=== PATIENT | female | born 1970 | race African-American/Black ===

== ENCOUNTER 2016-12-27 02:42 | Inpatient (IN) | payer MEDICARE, MEDICAID ==
[2016-12-27] VITALS (7 sets, daily range): BP systolic 98–135; BP diastolic 66–88; PULSE 61–86; RESP 16–19; TEMP 97.1–97.9; O2SAT 98–100
[~2016-12-27] VITALS: Ht 160 cm; Wt 71.5 kg
[~2016-12-27 02:42] MED LIST: CLAR10CA3 PO; DILA8TAB4 PO; GABA600T PO; MARI5CAP PO; METH10TA PO; MIRA33504 PO; NAPR500T PO; PROC25SU22 RECTAL; SENO8.6T5 PO; XANA1TAB2 PO; [UNRECOGNIZED DRUG - CODE] PO
[2016-12-27] MEDS ORDERED: MORPHINE SULFATE 4 MG/ML INJ IV PUSH ONE (03:30)
[2016-12-27] MEDS ORDERED: SODIUM CHLOR 0.9% 1000 ML INJ 1,000 ML IV SCH (03:30)
[2016-12-27] MEDS ORDERED: SODIUM CHLORIDE 0.9% FLUSH 5 ML FLUSH IVF PRN (03:30)
[2016-12-27] MEDS ORDERED: ONDANSETRON HCL 4 MG/2 ML VIAL IVP ONE (03:30)
[2016-12-27] MEDS ORDERED: METO10TA PO (03:47)
[2016-12-27] MEDS ORDERED: XARE15TA PO (03:47)
[2016-12-27] MEDS ORDERED: DEXA4TAB PO (03:47)
--- NOTE | 2016-12-27 03:51 | PD ---
HPI Chief Complaint: GI Complaint Time Seen by Provider: 03:21 Travel History International Travel<30 days: No Contact w/Intl Traveler<30days: No Traveled to known affect area: No History of Present Illness HPI The patient is a 46-year-old female who presents to the emergency department for nausea, vomiting, and abdominal pain. 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 The patient is currently treated by her oncologist at [facility] and [place], [place]. The patient states her oncologist is Joshua Hidalgo. The patient states she last received carboplatin and Taxotere on Thursday. The patient then had some nausea and vomiting. The patient is unable to tolerate oral intake including liquids and solids. The patient also complains of generalized abdominal pain, states she recently had a CT of the abdomen and pelvis which revealed an enlarging pelvic mass. The patient states she has no current family members in the area to help her with transportation and to help her with activities of daily living. The patient is called a family member who lives in [place] to see if she can live with them for care, however, currently is unable to transport herself to [facility] for further evaluation. The patient called her oncologist who recommended she come to the emergency department. The patient denies any fever , chills, or sweats. She does note decrease in energy secondary to poor oral intake. The patient also states she was recently diagnosed with a pulmonary embolism and was placed on Xarelto. PFSH Past Medical History Hx Anticoagulant Therapy: Yes (XARELTO) Cancer: Yes (DX FALLOPIAN TUBE CA) Cardiovascular Problems: No Chemotherapy: Yes (10/21/16) Diabetes: No Diminished Hearing: No Endocrine: No Genitourinary: No Hepatitis: No Hiatal Hernia: No Hypertension: No Immune Disorder: No Implanted Vascular Access Dvce: Yes (power port right subclavian) Musculoskeletal: No Neurologic: Yes Psychiatric: No Reproductive: No Respiratory: Yes (BLOOD CLOT RIGHT LUNG) Migraines: No Sickle Cell Disease: No Thyroid Disease: No PNEUMOCCOCAL Vaccine (Year): 2 : 0 Past Surgical History Abdominal Surgery: Yes (CANCER REMOVED FROM AROUND AORTA & BOWELS) Body Medical Devices: Infussa-port Genitourinary Surgery: Yes (BENIGN & malignant TUMORS REMOVED) Gynecologic Surgery: Yes (MYOMECTOMY) Hysterectomy: Yes Other Surgery: Yes Social History Alcohol Use: No Tobacco Use: No (former) Substance Use: No Allergies-Medications (Allergen,Severity, Reaction): Coded Allergies: Adhesives (Verified Allergy, Intermediate, SKIN REACTION, 12/27/16) Doxil (Verified Allergy, Intermediate, Rash, 12/27/16) Reported Meds & Prescriptions Reported Meds & Active Scripts Active Reported Xarelto (Rivaroxaban) 15 Mg Tab 15 Mg PO BID Metoclopramide (Metoclopramide HCl) 10 Mg Tab 10 Mg PO Q6HR Dexamethasone 4 Mg Tab 4 Mg PO DAILY Prochlorperazine Supp (Prochlorperazine) 25 Mg Supp 25 Mg RECTAL Q12H Miralax Powder (Polyethylene Glycol 3350 Powder) 17 Gm Powd 17 Gm PO BID Mix and dissolve one measuring cap-ful (17 grams) in water or juice. Methadone (Methadone HCl) 10 Mg Tab 20 Mg PO Q8HR Claritin (Loratadine) 10 Mg Cap 10 Mg PO DAILY Dilaudid (Hydromorphone HCl) 8 Mg Tab 8 Mg PO 5 TIMES A DAY Gabapentin 600 Mg Tab 600 Mg PO BID Marinol (Dronabinol) 5 Mg Cap 5 Mg PO BID Senokot (Sennosides) 8.6 Mg Tab 8.6 Mg PO 6 TIMES DAILY Xanax (Alprazolam) 1 Mg Tab 1 Mg PO 5 TIMES A DAY Review of Systems Except as stated in HPI: all other systems reviewed are Neg General / Constitutional: No: Fever, Chills Cardiovascular: No: Chest Pain or Discomfort Respiratory: No: Shortness of Breath Gastrointestinal: Positive: Nausea, Vomiting, Abdominal Pain, No: Diarrhea Genitourinary: No: Dysuria Musculoskeletal: Positive: Weakness Neurologic: Positive: Weakness Physical Exam Narrative GENERAL: Awake, alert, 46 year-old female who appears her stated age and is in no acute respiratory distress. SKIN: Warm and dry. HEAD: Atraumatic. Normocephalic. EYES: No injection or drainage. ENT: No nasal bleeding or discharge. Dry mucous membranes. NECK: Trachea midline. No JVD. CARDIOVASCULAR: Regular rate and rhythm. No murmur appreciated. Heart rate in the 80s. Port in place right chest wall. RESPIRATORY: No accessory muscle use. Clear to auscultation. Breath sounds equal bilaterally. GASTROINTESTINAL: Abdomen soft, well-healed midline surgical scar, no rebound tenderness. MUSCULOSKELETAL: No obvious deformities. No clubbing. No cyanosis. No edema. NEUROLOGICAL: Awake and alert. No obvious cranial nerve deficits. Motor grossly within normal limits. Normal speech. PSYCHIATRIC: Appropriate mood and affect; insight and judgment normal. Data Data Last Documented VS Vital Signs Date Time Temp Pulse Resp B/P Pulse Ox O2 Delivery O2 Flow Rate FiO2 12/27/16 03:10 61 18 128/81 99 Room Air 12/27/16 02:45 97.7 Orders Complete Blood Count With Diff (12/27/16 03:30) Comprehensive Metabolic Panel (12/27/16 03:30) Lipase (12/27/16 03:30) Lactic Acid (12/27/16 03:30) Urinalysis - C+S If Indicated (12/27/16 03:30) Abdomen, Flat & Upright (12/27/16 ) Iv Access Insert/Monitor (12/27/16 03:30) Ecg Monitoring (12/27/16 03:30) Oximetry (12/27/16 03:30) Morphine Inj (Morphine Inj) (12/27/16 03:30) Ondansetron Inj (Zofran Inj) (12/27/16 03:30) Sodium Chlor 0.9% 1000 Ml Inj (Ns 1000 M (12/27/16 03:30) Sodium Chloride 0.9% Flush (Ns Flush) (12/27/16 03:30) Sodium Chlor 0.9% 1000 Ml Inj (Ns 1000 M (12/27/16 04:45) Prochlorperazine Inj (Compazine Inj) (12/27/16 05:00) Admit Order (Ed Use Only) (12/27/16 05:09) Labs Laboratory Tests Test 12/27/16 03:40 White Blood Count 28.8 TH/MM3 Red Blood Count 4.98 MIL/MM3 Hemoglobin 13.2 GM/DL Hematocrit 40.5 % Mean Corpuscular Volume 81.3 FL Mean Corpuscular Hemoglobin 26.5 PG Mean Corpuscular Hemoglobin 32.6 % Concent Red Cell Distribution Width 19.7 % Platelet Count 304 TH/MM3 Mean Platelet Volume 9.1 FL Neutrophils (%) (Auto) % Lymphocytes (%) (Auto) % Monocytes (%) (Auto) % Eosinophils (%) (Auto) % Basophils (%) (Auto) % Neutrophils # (Auto) TH/MM3 Lymphocytes # (Auto) TH/MM3 Monocytes # (Auto) TH/MM3 Eosinophils # (Auto) TH/MM3 Basophils # (Auto) TH/MM3 CBC Comment AUTO DIFF Differential Total Cells 100 Counted Neutrophils % (Manual) 97 % Neutrophils # (Manual) 28.8 TH/MM3 Metamyelocytes 3 % Differential Comment FINAL DIFF MANUAL Platelet Estimate NORMAL Platelet Morphology Comment NORMAL Ovalocytes 1+ Sodium Level 139 MEQ/L Potassium Level 3.7 MEQ/L Chloride Level 102 MEQ/L Carbon Dioxide Level 27.3 MEQ/L Anion Gap 10 MEQ/L Blood Urea Nitrogen 20 MG/DL Creatinine 0.67 MG/DL Estimat Glomerular Filtration 115 ML/MIN Rate Random Glucose 122 MG/DL Lactic Acid Level 1.9 mmol/L Calcium Level 9.1 MG/DL Total Bilirubin 0.6 MG/DL Aspartate Amino Transf 16 U/L (AST/SGOT) Alanine Aminotransferase 23 U/L (ALT/SGPT) Alkaline Phosphatase 116 U/L Total Protein 7.2 GM/DL Albumin 3.6 GM/DL Lipase 66 U/L MDM Medical Decision Making Medical Screen Exam Complete: Yes Emergency Medical Condition: Yes Medical Record Reviewed: Yes Interpretation(s) Last Impressions Abdomen X-Ray 12/27/16 0000 Signed Impressions: Service Date/Time: Tuesday, December 27, 2016 03:55 - CONCLUSION: No acute disease. Derek Miranda MD Laboratory Tests Test 12/27/16 03:40 White Blood Count 28.8 TH/MM3 Red Blood Count 4.98 MIL/MM3 Hemoglobin 13.2 GM/DL Hematocrit 40.5 % Mean Corpuscular Volume 81.3 FL Mean Corpuscular Hemoglobin 26.5 PG Mean Corpuscular Hemoglobin 32.6 % Concent Red Cell Distribution Width 19.7 % Platelet Count 304 TH/MM3 Mean Platelet Volume 9.1 FL Neutrophils (%) (Auto) % Lymphocytes (%) (Auto) % Monocytes (%) (Auto) % Eosinophils (%) (Auto) % Basophils (%) (Auto) % Neutrophils # (Auto) TH/MM3 Lymphocytes # (Auto) TH/MM3 Monocytes # (Auto) TH/MM3 Eosinophils # (Auto) TH/MM3 Basophils # (Auto) TH/MM3 CBC Comment AUTO DIFF Sodium Level 139 MEQ/L Potassium Level 3.7 MEQ/L Chloride Level 102 MEQ/L Carbon Dioxide Level 27.3 MEQ/L Anion Gap 10 MEQ/L Blood Urea Nitrogen 20 MG/DL Creatinine 0.67 MG/DL Estimat Glomerular Filtration 115 ML/MIN Rate Random Glucose 122 MG/DL Lactic Acid Level 1.9 mmol/L Calcium Level 9.1 MG/DL Total Bilirubin 0.6 MG/DL Aspartate Amino Transf 16 U/L (AST/SGOT) Alanine Aminotransferase 23 U/L (ALT/SGPT) Alkaline Phosphatase 116 U/L Total Protein 7.2 GM/DL Albumin 3.6 GM/DL Lipase 66 U/L Differential Diagnosis Differential diagnosis includes cancer, chemotherapy side effect, dehydration, electrolyte abnormality, pancreatitis, ileus, partial small bowel obstruction, failure to thrive, end-of-life care. Narrative Course The patient's port was accessed, labs were drawn and sent, and the patient was placed on cardiac telemetry monitoring and continuous pulse oximetry monitoring. The patient was administered IV fluids, Zofran, and morphine. Flat and upright x-ray were obtained evaluate for possible ileus/obstruction. The patient states she recently had a CT the abdomen and pelvis, therefore, no CT the abdomen and pelvis was performed today secondary to recent radiation. The patient is requesting to be transferred to [facility] for further evaluation by her oncologist. The patient states her oncologist is Dr. Joshua Hidalgo, and she states the number to the main line is [phone]. I discussed the patient with the [employer] oncology fellow, Dr. Puga, who spoke with the patient directly on the phone regarding transfer versus staying in [facility] and receiving IV fluids and antiemetics. After Dr. Puga had a discussion with the patient, she agreed to receive treatment at [facility] be transferred later if symptoms worsen or progress. The patient continued to have nausea/vomiting, therefore, was administered Compazine and a second dose of IV fluids. The patient states her primary physician is Dr. Breonna Chang, therefore, the on-call medical service was paged for admission. The patient will be admitted to the oncology floor. Physician Communication Physician Communication [facility] hospitalists were paged for admission. I discussed the patient with Dr. Ta who agrees with admission. Diagnosis Primary Impression: Intractable nausea and vomiting Qualified Code: R11.2 - Intractable vomiting with nausea, unspecified vomiting type Additional Impression: Gynecologic cancer Admitting Information Admitting Physician Requests: Admit Condition: Stable Tanmay Armijo MD Dec 27, 2016 03:51
[2016-12-27 03:56] LABS: HEMATOCRIT 40.5 % (35.0-46.0); MEAN CELL VOLUME 81.3 FL (80.0-100.0); MEAN CORPUSCULAR HEMOGLOBIN 26.5 PG (27.0-34.0); MEAN CORPUSCULAR HGB CONC 32.6 % (32.0-36.0); PLATELET COUNT 304 TH/MM3 (150-450); RED BLOOD COUNT 4.98 MIL/MM3 (4.00-5.30); RED CELL DISTRIBUTION WIDTH 19.7 % (11.6-17.2); WHITE BLOOD COUNT 28.8 TH/MM3 (4.0-11.0)
--- NOTE | 2016-12-27 04:14 | RADRPT ---
EXAM DATE/TIME: 12/27/2016 03:55 [place] COMPARISON: No previous studies available for comparison. INDICATIONS : Abdominal pain. Nausea. MEDICAL HISTORY : Carcinoma, colon. SURGICAL HISTORY : None. ENCOUNTER: Initial ACUITY: 3 days PAIN SCORE: 6/10 LOCATION: Bilateral lower quadrant FINDINGS: No evidence for bowel obstruction. No free air beneath the diaphragm. Surgical clips are noted throug hout the abdomen. Osseous structures are intact. CONCLUSION: No acute disease. Derek Miranda MD on December 27, 2016 at 4:12 Board Certified Radiologist. This report was verified electronically.
[2016-12-27 04:16] LABS: ANION GAP 10 MEQ/L (5-15); AST (GOT) 16 U/L (15-37); BICARBONATE 27.3 MEQ/L (21.0-32.0); BLOOD UREA NITROGEN 20 MG/DL (7-18); CHLORIDE 102 MEQ/L (98-107); GLOMERULAR FILTRATION RATE 115 ML/MIN (>89); POTASSIUM 3.7 MEQ/L (3.5-5.1); SODIUM (NA) 139 MEQ/L (136-145)
[2016-12-27 04:20] LABS: ALKALINE PHOSPHATASE 116 U/L (45-117); ALT (GPT) 23 U/L (10-53); TOTAL BILIRUBIN ADULT 0.6 MG/DL (0.2-1.0)
[2016-12-27 04:22] LABS: HEMO FLAGS AUTO DIFF
[2016-12-27] MEDS ORDERED: SODIUM CHLOR 0.9% 1000 ML INJ 1,000 ML IV ONE (04:45)
[2016-12-27] MEDS ORDERED: PROCHLORPERAZINE INJ 10 MG/2 ML VIAL IVS ONE (05:00)
[2016-12-27 05:03] LABS: METAMYELOCYTES 3 % (0-1); NEUTROPHIL # MANUAL DIFF 28.8 TH/MM3 (1.8-7.7); POLYS (SEG NEUTROPHILS) 97 % (16-70); WBC DIFF SAMPLE 100
[2016-12-27 05:04] LABS: OVALOCYTES 1+ (NORMAL); PLATELET ESTIMATE SMEAR NORMAL (NORMAL); PLATELET MORPHOLOGY NORMAL (NORMAL); SCAN/DIFF FINAL DIFF MANUAL
[2016-12-27] MEDS ORDERED: PROMETHAZINE INJ 25 MG/ML VIAL IM PRN (05:15)
[2016-12-27] MEDS ORDERED: HYDROmorphone HCL PF 1 MG/ML VIAL IV PUSH ONE (05:15)
[2016-12-27] MEDS ORDERED: SODIUM CHLORIDE 0.9% FLUSH 5 ML FLUSH FLUSH PRN (05:15)
[2016-12-27] MEDS ORDERED: BISACODYL 10 MG SUPP PR PRN (05:15)
[2016-12-27] MEDS ORDERED: ACETAMINOPHEN 325 MG TAB PO PRN (05:15)
[2016-12-27] MEDS ORDERED: PANTOPRAZOLE SODIUM 40 MG VIAL IV PUSH ONE (05:30)
--- NOTE | 2016-12-27 05:38 | HHI.HP ---
[facility] Service [facility] Hospitalists Primary Care Physician Breonna Chang M.D. Admission Diagnosis intractable nausea/vomiting, gynecologic cancer, status post chemoth Diagnoses: (1) Intractable nausea and vomiting Diagnosis: Principal (2) Fallopian tube carcinoma Diagnosis: Principal (3) Leukocytosis Diagnosis: Principal (4) Chronic pain Diagnosis: Principal Travel History International Travel<30 Days: No Contact w/Intl Traveler <30 Da: No Traveled to Known Affected Are: No History of Present Illness This is a 46-year-old female with a PMH of Stage For Fallopian Tube CA on Chemo , h/o PE on Xarelto and Chronic Pain who presented to the ER w/ complaints of nausea, vomiting x3 days. States had Chemo on Thursday and has been having ongoing nausea/vomiting since then, unable to take PO. Follows w/ Oncologist Dr. Joshua Hidalgo at [place], recent CT Abd/Pelvis w/ enlarging pelvic mass per patient. Denies fever, chills or diarrhea. On arrival, BP 135/88, HR 86, O2 sat 98% on RA, Afebrile. WBC 28. Chemistry unremarkable except for BUN of 20. Lactic Acid 1.9. Abdominal X-ray with no acute disease. S/p Zofran, Compazine and Morphine IV in ER w/ some improvement. Oncologist at [place] contacted by ER physician, agreed that pt could remain here at [place] without need for transfer to [place] at this point in time. Review of Systems ROS: 14 point review of systems otherwise negative. Past Family Social History Past Medical History PMH: Stage For Fallopian Tube CA on Chemo, h/o PE on Xarelto and Chronic Pain Past Surgical History PAST SURGICAL HISTORY: Abdominal Debulking, Myomectomy, Hysterectomy, Infuse-a- Port Allergies: Coded Allergies: Adhesives (Verified Allergy, Intermediate, SKIN REACTION, 12/27/16) Doxil (Verified Allergy, Intermediate, Rash, 12/27/16) Family History PAST FAMILY HISTORY: Reviewed. No h/o DM or CAD Social History PAST SOCIAL HISTORY: Negative for alcohol, tobacco or drugs. Physical Exam Vital Signs Vital Signs Date Time Temp Pulse Resp B/P Pulse Ox O2 Delivery O2 Flow Rate FiO2 12/27/16 03:10 61 18 128/81 99 Room Air 12/27/16 02:45 97.7 86 18 135/88 98 Physical Exam PE: GENERAL: Middle-aged female in no acute distress. HEENT: PERRLA, EOMI. No scleral icterus or conjunctival pallor. No lid lag or facial droop. CARDIOVASCULAR: Regular rate and rhythm. No obvious murmurs to auscultation. No chest tenderness to palpation. Right chest port in place. RESPIRATORY: No obvious rhonchi or wheezing. Clear to auscultation. Breath sounds equal bilaterally. GASTROINTESTINAL: Abdomen soft, non-tender, nondistended. BS normal. MUSCULOSKELETAL: Extremities without clubbing, cyanosis, or edema. No obvious deformities. NEUROLOGICAL: Awake, alert and oriented x4. No focal neurologic deficits. Moving both upper and lower extremities spontaneously. Laboratory Laboratory Tests Test 12/27/16 03:40 White Blood Count 28.8 Red Blood Count 4.98 Hemoglobin 13.2 Hematocrit 40.5 Mean Corpuscular Volume 81.3 Mean Corpuscular Hemoglobin 26.5 Mean Corpuscular Hemoglobin 32.6 Concent Red Cell Distribution Width 19.7 Platelet Count 304 Mean Platelet Volume 9.1 Neutrophils (%) (Auto) Lymphocytes (%) (Auto) Monocytes (%) (Auto) Eosinophils (%) (Auto) Basophils (%) (Auto) Neutrophils # (Auto) Lymphocytes # (Auto) Monocytes # (Auto) Eosinophils # (Auto) Basophils # (Auto) CBC Comment AUTO DIFF Differential Total Cells 100 Counted Neutrophils % (Manual) 97 Neutrophils # (Manual) 28.8 Metamyelocytes 3 Differential Comment FINAL DIFF MANUAL Platelet Estimate NORMAL Platelet Morphology Comment NORMAL Ovalocytes 1+ Sodium Level 139 Potassium Level 3.7 Chloride Level 102 Carbon Dioxide Level 27.3 Anion Gap 10 Blood Urea Nitrogen 20 Creatinine 0.67 Estimat Glomerular Filtration 115 Rate Random Glucose 122 Lactic Acid Level 1.9 Calcium Level 9.1 Total Bilirubin 0.6 Aspartate Amino Transf 16 (AST/SGOT) Alanine Aminotransferase 23 (ALT/SGPT) Alkaline Phosphatase 116 Total Protein 7.2 Albumin 3.6 Lipase 66 Result Diagram: 12/27/16 0340 12/27/16 0340 Assessment and Plan Problem List: (1) Intractable nausea and vomiting ICD Code: R11.2 Status: Acute (2) Fallopian tube carcinoma ICD Code: C57.00 Status: Acute (3) Leukocytosis ICD Code: D72.829 Status: Acute (4) Chronic pain ICD Code: G89.29 Status: Acute Assessment and Plan A/P: 1. Intractable Nausea/Vomiting: s/p Chemo on Thursday, symptoms ongoing since then, no abdominal pain or diarrhea. Abdominal X-ray w/ no acute findings, images reviewed by me. S/p Zofran, Compazine w/ some improvement, continue IV Zofran/Compazine/Phenergan, Ativan IV if needed. IVF for hydration. Diet as tolerated. Protonix IV. Labs essentially unremarkable. Lipase normal. Lactic Acid normal. 2. Fallopian Tube CA: Stage IV. Follows w/ Dr. Joshua Hidalgo at [place], Oncologist contacted by ER physician and discussed pt's condition, agreed that pt could be admitted here for Observation/IVF, no need for transfer to [place] at this time. Pt to follow up upon discharge as scheduled. 3. Chronic Pain: secondary to Fallopian Tube CA. Resume home Dilaudid PO and Methadone, Dilaudid IV as needed. Senna, Miralax prn. 4. DVT Prophylaxis: On Xarelto for h/o PE. 5. Social work for d/c planning as needed. 6. Case discussed w/ ER physician at length. Problem Qualifiers (1) Intractable nausea and vomiting: Qualified Code: R11.2 - Intractable vomiting with nausea, unspecified vomiting type Cassandra Ta MD Dec 27, 2016 05:38
[2016-12-27] MEDS: SODIUM CHLOR 0.9% 1000 ML INJ 1,000 ML IV SCH ×3 (05:49→23:40)
[2016-12-27] MEDS: ALPRAZolam 1 MG TAB PO SCH ×5 (05:59→22:00)
[2016-12-27] MEDS: HYDROmorphone HCL 4 MG TAB PO SCH ×5 (06:00→21:52)
[2016-12-27] MEDS: METHADONE HCL 10 MG TAB PO SCH ×3 (06:00→21:51)
[2016-12-27] MEDS: SODIUM CHLORIDE 0.9% FLUSH 5 ML FLUSH FLUSH SCH ×2 (08:47→21:43)
[2016-12-27] MEDS: POLYETHYLENE GLYCOL 17 GM PKG PO SCH ×2 (08:48→21:50)
[2016-12-27] MEDS: ONDANSETRON HCL 4 MG/2 ML VIAL IVP PRN ×2 (08:53→21:55)
[2016-12-27] MEDS: GABAPENTIN 300 MG CAP PO SCH ×2 (08:54→21:50)
[2016-12-27] MEDS: RIVAROXABAN 15 MG TAB PO SCH ×2 (08:54→21:50)
[2016-12-27] MEDS: DRONABINOL 5 MG CAP PO SCH ×2 (08:54→21:50)
[2016-12-27] MEDS: SENNOSIDES 8.6 MG TAB PO SCH ×5 (08:54→23:38)
[2016-12-27] MEDS: PROCHLORPERAZINE INJ 10 MG/2 ML VIAL IVS PRN (15:39)
[2016-12-28] VITALS: BP 105/67; PULSE 61; RESP 18; TEMP 97.1; O2SAT 97
[2016-12-28 04:00] VITALS: BP 105/62; PULSE 72; RESP 19; TEMP 96.4; O2SAT 100
[2016-12-28] MEDS: SENNOSIDES 8.6 MG TAB PO SCH ×5 (04:00→20:00)
[2016-12-28 04:54] LABS: AUTOMATED NEUTROPHIL # 8.2 TH/MM3 (1.8-7.7); BASOPHIL # 0.1 TH/MM3 (0-0.2); BASOPHIL % 0.7 % (0.0-2.0); EOSINOPHIL % 0.1 % (0.0-4.0); HEMATOCRIT 31.8 % (35.0-46.0); LYMPH % 18.8 % (9.0-44.0); MEAN CELL VOLUME 81.6 FL (80.0-100.0); MEAN CORPUSCULAR HGB CONC 33.1 % (32.0-36.0); MONO % 2.1 % (0.0-8.0); NEUT % 78.3 % (16.0-70.0); PLATELET COUNT 203 TH/MM3 (150-450); RED CELL DISTRIBUTION WIDTH 18.8 % (11.6-17.2); WHITE BLOOD COUNT 10.4 TH/MM3 (4.0-11.0)
[2016-12-28 04:58] LABS: HEMO FLAGS AUTO DIFF
[2016-12-28 05:10] LABS: ALT (GPT) 21 U/L (10-53); ANION GAP 7 MEQ/L (5-15); AST (GOT) 11 U/L (15-37); BICARBONATE 28.2 MEQ/L (21.0-32.0); BLOOD UREA NITROGEN 12 MG/DL (7-18); CHLORIDE 108 MEQ/L (98-107); GLOMERULAR FILTRATION RATE 157 ML/MIN (>89); POTASSIUM 3.6 MEQ/L (3.5-5.1); SODIUM (NA) 143 MEQ/L (136-145)
[2016-12-28 05:13] LABS: ALKALINE PHOSPHATASE 83 U/L (45-117); TOTAL BILIRUBIN ADULT 0.4 MG/DL (0.2-1.0)
[2016-12-28] MEDS: ALPRAZolam 1 MG TAB PO SCH ×5 (05:35→22:38)
[2016-12-28] MEDS: HYDROmorphone HCL 4 MG TAB PO SCH ×5 (05:37→22:00)
[2016-12-28] MEDS: METHADONE HCL 10 MG TAB PO SCH ×3 (05:37→22:00)
[2016-12-28 06:27] LABS: METAMYELOCYTES 3 % (0-1); NEUTROPHIL # MANUAL DIFF 9.3 TH/MM3 (1.8-7.7); POLYS (SEG NEUTROPHILS) 86 % (16-70); WBC DIFF SAMPLE 100
[2016-12-28 06:28] LABS: OVALOCYTES 1+ (NORMAL); PLATELET ESTIMATE SMEAR NORMAL (NORMAL); PLATELET MORPHOLOGY NORMAL (NORMAL); SCAN/DIFF FINAL DIFF MANUAL
[2016-12-28 08:00] VITALS: BP 110/64; PULSE 71; RESP 16; TEMP 97.5; O2SAT 99
[2016-12-28] MEDS: SODIUM CHLORIDE 0.9% FLUSH 5 ML FLUSH FLUSH SCH ×2 (08:01→20:46)
[2016-12-28] MEDS: POLYETHYLENE GLYCOL 17 GM PKG PO SCH ×2 (08:01→20:48)
[2016-12-28] MEDS: RIVAROXABAN 15 MG TAB PO SCH ×2 (08:02→20:48)
[2016-12-28] MEDS: DRONABINOL 5 MG CAP PO SCH ×2 (08:02→20:48)
[2016-12-28] MEDS: GABAPENTIN 300 MG CAP PO SCH ×2 (08:02→20:48)
[2016-12-28] MEDS: ONDANSETRON HCL 4 MG/2 ML VIAL IVP PRN ×2 (08:04→18:23)
[2016-12-28 12:00] VITALS: BP 112/63; PULSE 67; RESP 16; TEMP 97.9; O2SAT 98
[2016-12-28] MEDS: SODIUM CHLOR 0.9% 1000 ML INJ 1,000 ML IV SCH ×2 (12:21→20:55)
[2016-12-28] MEDS: PROCHLORPERAZINE INJ 10 MG/2 ML VIAL IVS PRN (12:21)
--- NOTE | 2016-12-28 12:35 | HHI.PR ---
Subjective Remarks Follow up for nausea, vomiting in a patient with gynecological cancer. Patient is doing better. No further nausea, vomiting but feels weak. Family at bedside. No fever, chills. Objective Vitals Vital Signs Date Time Temp Pulse Resp B/P Pulse Ox O2 Delivery O2 Flow Rate FiO2 12/28/16 11:53 16 12/28/16 08:00 97.5 71 16 110/64 99 12/28/16 04:00 96.4 72 19 105/62 100 12/28/16 00:00 97.1 61 18 105/67 97 12/27/16 20:00 97.1 67 19 108/66 98 12/27/16 16:00 97.9 72 16 106/66 100 I/O 12/27/16 12/27/16 12/27/16 12/28/16 12/28/16 12/28/16 07:00 15:00 23:00 07:00 15:00 23:00 Intake Total 1040 ml 1280 ml 800 ml Balance 1040 ml 1280 ml 800 ml Intake Oral 240 ml 480 ml IV Total 800 ml 800 ml 800 ml # Voids 2 1 # Bowel Movements 1 1 Result Diagram: 12/28/16 0415 12/28/16 0415 Imaging Last Impressions Abdomen X-Ray 12/27/16 0000 Signed Impressions: Service Date/Time: Tuesday, December 27, 2016 03:55 - CONCLUSION: No acute disease. Derek Miranda MD Objective Remarks GENERAL: Alert, Oriented x 3, NAD. SKIN: Warm and dry. HEAD: Normocephalic. EYES: No scleral icterus. No injection or drainage. NECK: Supple, trachea midline. No JVD or lymphadenopathy. CARDIOVASCULAR: Regular rate and rhythm without murmurs, gallops, or rubs. RESPIRATORY: Breath sounds equal bilaterally. No accessory muscle use. GASTROINTESTINAL: Abdomen soft, non-tender, nondistended. MUSCULOSKELETAL: No cyanosis, or edema. BACK: Nontender without obvious deformity. No CVA tenderness. Procedures None. A/P Problem List: (1) Intractable nausea and vomiting ICD Code: R11.2 Status: Acute (2) Fallopian tube carcinoma ICD Code: C57.00 Status: Acute (3) Leukocytosis ICD Code: D72.829 Status: Acute (4) Chronic pain ICD Code: G89.29 Status: Acute Assessment and Plan This is a 46-year-old female with a PMH of Stage For Fallopian Tube CA on Chemo , h/o PE on Xarelto and Chronic Pain who presented to the ER w/ complaints of nausea, vomiting x3 days. States had Chemo on Thursday and has been having ongoing nausea/vomiting since then, unable to take PO. Follows w/ Oncologist Dr. Joshua Hidalgo at [place], recent CT Abd/Pelvis w/ enlarging pelvic mass per patient. - Intractable nausea, vomiting - Continue Zofran, Compazine, Phenergan. Continue IV fluid. - N/V improved. - Will likely discharge patient home on 12/29/2016. - Stage IV Fallopian tube cancer - Continue to follow up with [place] [facility]. - Chronic pain - secondary to Fallopian Tube CA. Resume home Dilaudid PO and Methadone, Dilaudid IV as needed. Senna, Miralax prn. - History of PE - currently on Xarelto. Full code. Xarelto. Problem Qualifiers (1) Intractable nausea and vomiting: Qualified Code: R11.2 - Intractable vomiting with nausea, unspecified vomiting type Adebayo Ryan DO Dec 28, 2016 12:35
[2016-12-28] MEDS: HYDROmorphone HCL PF 1 MG/ML VIAL IV PRN ×2 (14:21→22:41)
[2016-12-28 16:00] VITALS: BP 114/64; PULSE 74; RESP 16; TEMP 97.7; O2SAT 97
[2016-12-28 20:00] VITALS: BP 105/65; PULSE 102; RESP 16; TEMP 97.9; O2SAT 97
[2016-12-29] VITALS: BP 112/60; PULSE 83; RESP 17; TEMP 97.9; O2SAT 97
[2016-12-29 04:00] VITALS: BP 98/64; PULSE 90; RESP 16; TEMP 98.5; O2SAT 97
[2016-12-29] MEDS: SENNOSIDES 8.6 MG TAB PO SCH ×6 (04:00→20:00)
[2016-12-29] MEDS: HYDROmorphone HCL PF 1 MG/ML VIAL IV PRN ×5 (05:23→23:34)
[2016-12-29] MEDS: METHADONE HCL 10 MG TAB PO SCH ×3 (05:30→23:29)
[2016-12-29] MEDS: HYDROmorphone HCL 4 MG TAB PO SCH ×5 (05:30→22:00)
[2016-12-29] MEDS: ALPRAZolam 1 MG TAB PO SCH ×7 (05:31→22:00)
[2016-12-29 06:58] LABS: BACTERIA, URINE RARE /hpf; BLOOD, URINE NEG (NEG); COMMENT (UR) CULT NOT INDICATED; CULTURE IF INDICATED CULT NOT INDICATED; GLUCOSE,URINE NEG (NEG); KETONE, URINE NEG (NEG); MUCUS URINE FEW /lpf (OCC); NITRITE,URINE NEG (NEG); PH, URINE 6.5 (5.0-8.5); SQUAMOUS EPITHELIAL CELL URINE <1 /hpf (0-5); URINE COLOR LIGHT-YELLOW (YELLW/STRAW)
[2016-12-29 08:00] VITALS: BP 119/58; PULSE 72; RESP 18; TEMP 98.7; O2SAT 99
[2016-12-29] MEDS: SODIUM CHLORIDE 0.9% FLUSH 5 ML FLUSH FLUSH SCH ×2 (09:00→21:00)
[2016-12-29] MEDS: POLYETHYLENE GLYCOL 17 GM PKG PO SCH ×2 (09:00→21:00)
[2016-12-29] MEDS: DRONABINOL 5 MG CAP PO SCH ×2 (09:17→23:29)
[2016-12-29] MEDS: RIVAROXABAN 15 MG TAB PO SCH ×2 (09:17→21:00)
[2016-12-29] MEDS: GABAPENTIN 300 MG CAP PO SCH ×2 (09:17→23:30)
[2016-12-29] MEDS: ONDANSETRON HCL 4 MG/2 ML VIAL IVP PRN ×3 (09:17→23:39)
[2016-12-29] MEDS: SODIUM CHLOR 0.9% 1000 ML INJ 1,000 ML IV SCH ×2 (09:18→17:09)
[2016-12-29 12:00] VITALS: BP 117/58; PULSE 76; RESP 20; TEMP 98; O2SAT 100
--- NOTE | 2016-12-29 12:31 | HHI.PR ---
Subjective Remarks Follow up for nausea, vomiting in a patient with gynecological cancer. Patient complains of persistent nausea and vomiting. She vomited today this morning and noticed some blood-tinged vomitus. No fever or chills. She complains generalized pain. Objective Vitals Vital Signs Date Time Temp Pulse Resp B/P Pulse Ox O2 Delivery O2 Flow Rate FiO2 12/29/16 08:00 98.7 72 18 119/58 99 12/29/16 04:00 98.5 90 16 98/64 97 12/29/16 00:00 97.9 83 17 112/60 97 12/28/16 20:00 97.9 102 16 105/65 97 12/28/16 16:00 97.7 74 16 114/64 97 12/28/16 14:54 16 12/28/16 14:54 16 I/O 12/28/16 12/28/16 12/28/16 12/29/16 12/29/16 12/29/16 07:00 15:00 23:00 07:00 15:00 23:00 Intake Total 800 ml 720 ml 1280 ml 990 ml 840 ml Output Total 300 ml Balance 800 ml 720 ml 1280 ml 990 ml 540 ml Intake Oral 720 ml 480 ml 240 ml 840 ml IV Total 800 ml 800 ml 750 ml Output Urine Total 300 ml # Voids 1 4 3 2 1 # Bowel Movements 1 2 1 Result Diagram: 12/28/16 0415 12/28/16 0415 Imaging Last Impressions Abdomen X-Ray 12/27/16 0000 Signed Impressions: Service Date/Time: Tuesday, December 27, 2016 03:55 - CONCLUSION: No acute disease. Derek Miranda MD Objective Remarks GENERAL: Alert, Oriented x 3, NAD. SKIN: Warm and dry. HEAD: Normocephalic. EYES: No scleral icterus. No injection or drainage. NECK: Supple, trachea midline. No JVD or lymphadenopathy. CARDIOVASCULAR: Regular rate and rhythm without murmurs, gallops, or rubs. RESPIRATORY: Breath sounds equal bilaterally. No accessory muscle use. GASTROINTESTINAL: Abdomen soft, mildly tender to palpation, nondistended. MUSCULOSKELETAL: No cyanosis, or edema. BACK: Nontender without obvious deformity. No CVA tenderness. Procedures None. A/P Problem List: (1) Intractable nausea and vomiting ICD Code: R11.2 Status: Acute (2) Fallopian tube carcinoma ICD Code: C57.00 Status: Acute (3) Leukocytosis ICD Code: D72.829 Status: Acute (4) Chronic pain ICD Code: G89.29 Status: Acute Assessment and Plan This is a 46-year-old female with a PMH of Stage For Fallopian Tube CA on Chemo , h/o PE on Xarelto and Chronic Pain who presented to the ER w/ complaints of nausea, vomiting x3 days. States had Chemo on Thursday and has been having ongoing nausea/vomiting since then, unable to take PO. Follows w/ Oncologist Dr. Joshua Hidalgo at [place], recent CT Abd/Pelvis w/ enlarging pelvic mass per patient. - Intractable nausea, vomiting - Continue Zofran, Compazine, Phenergan. Continue IV fluid. - Had N/V today. Will switch patient's diet from regular to clear liquid diet. - Possible discharge 12/30/2016. - Stage IV Fallopian tube cancer - Continue to follow up with [place] [facility]. - Chronic pain - secondary to Fallopian Tube CA. Resume home Dilaudid PO and Methadone, Dilaudid IV as needed. Senna, Miralax prn. - History of PE - currently on Xarelto. Full code. Xarelto. Problem Qualifiers (1) Intractable nausea and vomiting: Qualified Code: R11.2 - Intractable vomiting with nausea, unspecified vomiting type Adebayo Ryan DO Dec 29, 2016 12:31 pm
--- NOTE | 2016-12-29 14:20 | PQ ---
Physician Query Response Document PATIENT: LASHAWN CHASE : 1970 ADMIT DATE: 12/27/2016 5:10 AM DISCH DATE: RESPONDING PROVIDER #: jaden QUERY TEXT: Cause and Effect Relationship Please clarify in documentation the relationship, if any, between _INTRACTABLE NAUSEA/ VOMITING__and_ CHEMOTHERAPY_ Such as: -- Conditions are due to or associated -- Unrelated to each other -- Other, please specify The patient's Clinical Indicators include: 12/27/16 Admission Diagnosis intractable nausea/vomiting, gynecologic cancer, status post chemoth PER 12/29/16 PROGRESS NOTE - Assessment and Plan This is a 46-year-old female with a PMH of Stage For Fallopian Tube CA on Chemo, h/o PE on Xarelto an d Chronic Pain who presented to the ER w/ complaints of nausea, vomiting x3 days. States had Chemo o n Thursday and has been having ongoing nausea/vomiting since then, unable to take PO. Query created by: Sheila Santos on 12/29/2016 2:08 PM RESPONSE TEXT: Intractable nausea, vomiting related to chemotherapy. Patient has gynecological cancer, treated at [facility]. Electronically signed by: Martin Ryan DO 12/29/2016 2:16 PM
[2016-12-29] MEDS ORDERED: MISC-163 (14:35)
[2016-12-29 16:00] VITALS: BP 113/68; PULSE 76; RESP 18; TEMP 99.5; O2SAT 98
[2016-12-29] MEDS: NYSTAT/DIPHENHY/LIDO MOUTHWASH (Adult) 120ML SWISH-SWAL SCH ×2 (18:47→23:31)
[2016-12-29 20:00] VITALS: BP 120/66; PULSE 96; RESP 18; TEMP 97.6; O2SAT 100
[2016-12-29] MEDS: LORazepam 2 MG/ML VIAL IV PUSH PRN (23:34)
[2016-12-30] VITALS: BP 106/64; PULSE 117; RESP 18; TEMP 100.5; O2SAT 95
[2016-12-30] MEDS: SODIUM CHLOR 0.9% 1000 ML INJ 1,000 ML IV SCH ×2 (03:09→21:38)
[2016-12-30] MEDS: SENNOSIDES 8.6 MG TAB PO SCH ×7 (03:29→21:39)
[2016-12-30 04:00] VITALS: BP 114/56; PULSE 106; RESP 17; TEMP 98.9; O2SAT 97
[2016-12-30] MEDS: ALPRAZolam 1 MG TAB PO SCH ×5 (05:49→21:38)
[2016-12-30] MEDS: HYDROmorphone HCL 4 MG TAB PO SCH ×5 (05:49→21:38)
[2016-12-30] MEDS: ONDANSETRON HCL 4 MG/2 ML VIAL IVP PRN ×3 (05:58→18:16)
[2016-12-30] MEDS: LORazepam 2 MG/ML VIAL IV PUSH PRN ×2 (05:58→21:35)
[2016-12-30] MEDS: HYDROmorphone HCL PF 1 MG/ML VIAL IV PRN ×5 (05:59→21:35)
[2016-12-30] MEDS: METHADONE HCL 10 MG TAB PO SCH ×3 (07:27→21:38)
[2016-12-30 08:00] VITALS: BP 104/66; PULSE 114; RESP 20; TEMP 100; O2SAT 97
[2016-12-30] MEDS: SODIUM CHLORIDE 0.9% FLUSH 5 ML FLUSH FLUSH SCH ×2 (09:00→21:36)
[2016-12-30] MEDS: POLYETHYLENE GLYCOL 17 GM PKG PO SCH ×2 (09:00→21:00)
[2016-12-30] MEDS: NYSTAT/DIPHENHY/LIDO MOUTHWASH (Adult) 120ML SWISH-SWAL SCH ×4 (09:23→21:34)
[2016-12-30] MEDS: GABAPENTIN 300 MG CAP PO SCH ×2 (09:24→21:37)
[2016-12-30] MEDS: RIVAROXABAN 15 MG TAB PO SCH ×2 (09:24→21:37)
[2016-12-30] MEDS: DRONABINOL 5 MG CAP PO SCH ×2 (09:24→21:37)
[2016-12-30] MEDS: PROCHLORPERAZINE INJ 10 MG/2 ML VIAL IVS PRN (09:30)
--- NOTE | 2016-12-30 10:40 | RADRPT ---
EXAM DATE/TIME: 12/30/2016 10:14 [place] COMPARISON: CHEST SINGLE AP, March 21, 2013, 9:56. INDICATIONS : Fever. MEDICAL HISTORY : Carcinoma, lung. 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 SURGICAL HISTORY : None. ENCOUNTER: Initial ACUITY: 3 days PAIN SCORE: 0/10 LOCATION: Bilateral chest FINDINGS: A single view of the chest demonstrates the lungs to be symmetrically aerated without evidence of mas s, infiltrate or effusion. The cardiomediastinal contours are unremarkable. Osseous structures are intact. CONCLUSION: Normal examination. Right-sided Gwjrlg-n-Nwhi in excellent position. Da Garcia MD on December 30, 2016 at 10:38 Board Certified Radiologist. This report was verified electronically.
[2016-12-30 11:32] LABS: AUTOMATED NEUTROPHIL # 3.6 TH/MM3 (1.8-7.7); BASOPHIL % 0.3 % (0.0-2.0); EOSINOPHIL % 0.2 % (0.0-4.0); HEMATOCRIT 33.2 % (35.0-46.0); LYMPH % 35.7 % (9.0-44.0); LYMPHOCYTE # 2.8 TH/MM3 (1.0-4.8); MEAN CORPUSCULAR HEMOGLOBIN 25.9 PG (27.0-34.0); MONO % 18.3 % (0.0-8.0); NEUT % 45.5 % (16.0-70.0); PLATELET COUNT 201 TH/MM3 (150-450); RED CELL DISTRIBUTION WIDTH 19.2 % (11.6-17.2); WHITE BLOOD COUNT 7.9 TH/MM3 (4.0-11.0)
[2016-12-30 11:34] LABS: HEMO FLAGS AUTO DIFF
[2016-12-30 11:47] LABS: BICARBONATE 30.3 MEQ/L (21.0-32.0); POTASSIUM 3.3 MEQ/L (3.5-5.1)
[2016-12-30 12:00] VITALS: BP 110/71; PULSE 110; RESP 18; TEMP 98.8; O2SAT 95
[2016-12-30 12:20] LABS: BANDS 23 % (0-6); BASOPHILS 1 % (0-2); METAMYELOCYTES 4 % (0-1); MYELOCYTES 3 % (0-0); NEUTROPHIL # MANUAL DIFF 3.8 TH/MM3 (1.8-7.7); POLYS (SEG NEUTROPHILS) 18 % (16-70); TOXIC GRANULATION 1+ (NORMAL); WBC DIFF SAMPLE 100
[2016-12-30 12:21] LABS: PLATELET ESTIMATE SMEAR NORMAL (NORMAL)
[2016-12-30 12:22] LABS: ACANTHOCYTES OCC (NORMAL); OVALOCYTES 1+ (NORMAL); PLATELET MORPHOLOGY NORMAL (NORMAL); SCAN/DIFF FINAL DIFF MANUAL
[2016-12-30 17:11] LABS: BLOOD, URINE NEG (NEG); COMMENT (UR) CULT NOT INDICATED; CULTURE IF INDICATED CULT NOT INDICATED; GLUCOSE,URINE NEG (NEG); KETONE, URINE NEG (NEG); MUCUS URINE FEW /lpf (OCC); NITRITE,URINE NEG (NEG); PH, URINE 5.5 (5.0-8.5); SQUAMOUS EPITHELIAL CELL URINE <1 /hpf (0-5); URINE COLOR YELLOW (YELLW/STRAW)
--- NOTE | 2016-12-30 18:26 | HHI.PR ---
Subjective Remarks Follow up for nausea, vomiting in a patient with gynecological cancer. Patient was seen in the late morning. She had two episodes of fever, highest 100.6F. Nausea, vomiting is improved. Denies any cough, SOB, dysuria. Objective Vitals Vital Signs Date Time Temp Pulse Resp B/P Pulse Ox O2 Delivery O2 Flow Rate FiO2 12/30/16 12:00 98.8 110 18 110/71 95 12/30/16 08:00 100.0 114 20 104/66 97 12/30/16 07:27 16 12/30/16 04:00 98.9 106 17 114/56 97 12/30/16 00:22 16 12/30/16 00:00 100.5 117 18 106/64 95 12/29/16 20:00 97.6 96 18 120/66 100 I/O 12/29/16 12/29/16 12/29/16 12/30/16 12/30/16 12/30/16 07:00 15:00 23:00 07:00 15:00 23:00 Intake Total 990 ml 1800 ml 630 ml 1500 ml Output Total 300 ml Balance 990 ml 1500 ml 630 ml 1500 ml Intake Oral 240 ml 1800 ml 630 ml 1500 ml IV Total 750 ml Output Urine Total 300 ml # Voids 2 2 4 2 # Bowel Movements 1 Result Diagram: 12/30/16 1114 12/30/16 1114 Imaging Last Impressions Chest X-Ray 12/30/16 0000 Signed Impressions: Service Date/Time: Friday, December 30, 2016 10:14 - CONCLUSION: Normal examination. Right-sided Txzflj-n-Nyif in excellent position. Da Garcia MD Abdomen X-Ray 12/27/16 0000 Signed Impressions: Service Date/Time: Tuesday, December 27, 2016 03:55 - CONCLUSION: No acute disease. Derek Miranda MD Objective Remarks GENERAL: Alert, Oriented x 3, NAD. SKIN: Warm and dry. HEAD: Normocephalic. EYES: No scleral icterus. No injection or drainage. NECK: Supple, trachea midline. No JVD or lymphadenopathy. CARDIOVASCULAR: Regular rate and rhythm without murmurs, gallops, or rubs. RESPIRATORY: Breath sounds equal bilaterally. No accessory muscle use. GASTROINTESTINAL: Abdomen soft, mildly tender to palpation, nondistended. MUSCULOSKELETAL: No cyanosis, or edema. BACK: Nontender without obvious deformity. No CVA tenderness. Procedures None. A/P Problem List: (1) Intractable nausea and vomiting ICD Code: R11.2 Status: Acute (2) Fallopian tube carcinoma ICD Code: C57.00 Status: Acute (3) Leukocytosis ICD Code: D72.829 Status: Acute (4) Chronic pain ICD Code: G89.29 Status: Acute Assessment and Plan This is a 46-year-old female with a PMH of Stage For Fallopian Tube CA on Chemo , h/o PE on Xarelto and Chronic Pain who presented to the ER w/ complaints of nausea, vomiting x3 days. States had Chemo on Thursday and has been having ongoing nausea/vomiting since then, unable to take PO. Follows w/ Oncologist Dr. Joshua Hidalgo at [place] [facility], recent CT Abd/Pelvis w/ enlarging pelvic mass per patient. - Fever, Tachycardia in a cancer patient. - Patient had two episodes of fever 100.5 and 100F. - No clear etiology. - We obtained blood cultures, UA, CXR, CBC, BMP, Lactic acid and Procalcitonin. - Work up so far negative. CXR reviewed by wy - unremarkable. No leukocytosis or leukopenia. Blood cx results pending. Lactic acid, procalcitonin unremarkable. - We will observe patient overnight without any antibiotics. If she spikes a fever, we will consider antibiotics. - Continue IV fluid 150cc/hour. - Will check D-Dimer. If positive, we will obtain CT PE study. - Intractable nausea, vomiting - Improving. Patient is tolerating diet. - Continue Zofran, Compazine, Phenergan. Continue IV fluid. - Switch clear liquid diet to Regular. - Possible discharge 12/31/2016. - Stage IV Fallopian tube cancer - Continue to follow up with [facility]. - Chronic pain - secondary to Fallopian Tube CA. Resume home Dilaudid PO and Methadone, Dilaudid IV as needed. Senna, Miralax prn. - History of PE - currently on Xarelto. Full code. Xarelto. Problem Qualifiers (1) Intractable nausea and vomiting: Qualified Code: R11.2 - Intractable vomiting with nausea, unspecified vomiting type Adebayo Ryan DO Dec 30, 2016 18:26
[2016-12-30 19:50] LABS: C. DIFF EPI 027 PRESUMPTIVE NEGATIVE (NEGATIVE); C. DIFF TOXIN PCR NEGATIVE (NEGATIVE)
[2016-12-30 20:00] VITALS: BP 112/66; PULSE 106; RESP 18; TEMP 98.7; O2SAT 98
[2016-12-31] VITALS (7 sets, daily range): BP systolic 100–125; BP diastolic 62–73; PULSE 70–112; RESP 16–20; TEMP 98.1–99.5; O2SAT 97–100
[2016-12-31] MEDS: HYDROmorphone HCL PF 1 MG/ML VIAL IV PRN ×6 (00:43→20:51)
[2016-12-31] MEDS: SODIUM CHLOR 0.9% 1000 ML INJ 1,000 ML IV SCH ×3 (03:49→17:23)
[2016-12-31] MEDS: SENNOSIDES 8.6 MG TAB PO SCH ×5 (04:00→20:00)
[2016-12-31] MEDS: HYDROmorphone HCL 4 MG TAB PO SCH ×5 (04:57→20:57)
[2016-12-31] MEDS: METHADONE HCL 10 MG TAB PO SCH ×3 (04:57→22:00)
[2016-12-31] MEDS: ONDANSETRON HCL 4 MG/2 ML VIAL IVP PRN ×3 (04:58→17:23)
[2016-12-31] MEDS: ALPRAZolam 1 MG TAB PO SCH ×5 (04:58→20:58)
[2016-12-31] MEDS: LORazepam 2 MG/ML VIAL IV PUSH PRN ×2 (06:33→14:23)
[2016-12-31] MEDS: SODIUM CHLORIDE 0.9% FLUSH 5 ML FLUSH FLUSH SCH ×2 (08:26→20:59)
[2016-12-31] MEDS: RIVAROXABAN 15 MG TAB PO SCH ×2 (08:27→20:53)
[2016-12-31] MEDS: DRONABINOL 5 MG CAP PO SCH ×2 (08:27→20:57)
[2016-12-31] MEDS: GABAPENTIN 300 MG CAP PO SCH ×2 (08:28→20:53)
[2016-12-31] MEDS: NYSTAT/DIPHENHY/LIDO MOUTHWASH (Adult) 120ML SWISH-SWAL SCH ×4 (08:36→20:54)
[2016-12-31] MEDS: POLYETHYLENE GLYCOL 17 GM PKG PO SCH ×2 (08:37→20:48)
--- NOTE | 2016-12-31 13:27 | HHI.PR ---
Subjective Remarks Follow up for intractable nausea, vomiting likely related to chemotherapy. Patient repots feeling better. However, she reports persistent nausea, vomiting. No fever, chills. She is tolerating diet well. Objective Vitals Vital Signs Date Time Temp Pulse Resp B/P Pulse Ox O2 Delivery O2 Flow Rate FiO2 12/31/16 11:50 99.5 108 20 100/67 97 12/31/16 08:00 99.2 109 16 103/73 100 12/31/16 05:44 16 12/31/16 04:00 99.0 106 18 108/63 100 12/31/16 00:00 98.5 112 17 105/62 100 12/30/16 20:00 98.7 106 18 112/66 98 I/O 12/30/16 12/30/16 12/30/16 12/31/16 12/31/16 12/31/16 07:00 15:00 23:00 07:00 15:00 23:00 Intake Total 630 ml 1500 ml 720 ml 480 ml 480 ml Balance 630 ml 1500 ml 720 ml 480 ml 480 ml Intake Oral 630 ml 1500 ml 720 ml 480 ml 480 ml # Voids 4 2 2 2 Result Diagram: 12/30/16 1114 12/30/16 1114 Imaging Last Impressions Chest X-Ray 12/30/16 0000 Signed Impressions: Service Date/Time: Friday, December 30, 2016 10:14 - CONCLUSION: Normal examination. Right-sided Pmowgs-t-Wlva in excellent position. Da Garcia MD Abdomen X-Ray 12/27/16 0000 Signed Impressions: Service Date/Time: Tuesday, December 27, 2016 03:55 - CONCLUSION: No acute disease. Derek Miranda MD Objective Remarks GENERAL: Alert, Oriented x 3, NAD. SKIN: Warm and dry. HEAD: Normocephalic. EYES: No scleral icterus. No injection or drainage. NECK: Supple, trachea midline. No JVD or lymphadenopathy. CARDIOVASCULAR: Regular rate and rhythm without murmurs, gallops, or rubs. RESPIRATORY: Breath sounds equal bilaterally. No accessory muscle use. GASTROINTESTINAL: Abdomen soft, mildly tender to palpation, nondistended. MUSCULOSKELETAL: No cyanosis, or edema. BACK: Nontender without obvious deformity. No CVA tenderness. Procedures None. A/P Problem List: (1) Intractable nausea and vomiting ICD Code: R11.2 Status: Acute (2) Fallopian tube carcinoma ICD Code: C57.00 Status: Acute (3) Leukocytosis ICD Code: D72.829 Status: Acute (4) Chronic pain ICD Code: G89.29 Status: Acute Assessment and Plan This is a 46-year-old female with a PMH of Stage For Fallopian Tube CA on Chemo , h/o PE on Xarelto and Chronic Pain who presented to the ER w/ complaints of nausea, vomiting x3 days. States had Chemo on Thursday and has been having ongoing nausea/vomiting since then, unable to take PO. Follows w/ Oncologist Dr. Joshua Hidalgo at [facility], recent CT Abd/Pelvis w/ enlarging pelvic mass per patient. - Fever, Tachycardia in a cancer patient. - Patient had two episodes of fever 100.5 and 100F on 12/30/2016. No fever > 100F today. - We obtained blood cultures, UA, CXR, CBC, BMP, Lactic acid and Procalcitonin - negative so far. - CXR unremarkable for any acute findings. D-dimer 0.19 - Continue IV fluid 150cc/hour. - Intractable nausea, vomiting - Improving. Will change patient's diet to full liquid. Advised patient to gradually advance diet. - Continue Zofran, Compazine, Phenergan. Continue IV fluid. - Start Carafate. - Stage IV Fallopian tube cancer - Continue to follow up with [facility]. - Chronic pain - secondary to Fallopian Tube CA. Resume home Dilaudid PO and Methadone, Dilaudid IV as needed. Senna, Miralax prn. - History of PE - currently on Xarelto. Full code. Xarelto. Problem Qualifiers (1) Intractable nausea and vomiting: Qualified Code: R11.2 - Intractable vomiting with nausea, unspecified vomiting type Adebayo Ryan DO Dec 31, 2016 1:27 pm
[2016-12-31] MEDS ORDERED: WALKER WHEELS/F1 MIS (14:08)
[2016-12-31] MEDS: SUCRALFATE 1 GM/10 ML CUP PO SCH ×2 (17:22→20:55)
[2016-12-31] MEDS: PROCHLORPERAZINE INJ 10 MG/2 ML VIAL IVS PRN (18:13)
[2017-01-01] VITALS: BP 131/77; PULSE 98; RESP 17; TEMP 98.2; O2SAT 99
[2017-01-01] MEDS: SODIUM CHLOR 0.9% 1000 ML INJ 1,000 ML IV SCH (02:05)
[2017-01-01] MEDS: HYDROmorphone HCL PF 1 MG/ML VIAL IV PRN ×3 (02:17→09:31)
[2017-01-01] MEDS: ONDANSETRON HCL 4 MG/2 ML VIAL IVP PRN (02:17)
[2017-01-01] MEDS: SENNOSIDES 8.6 MG TAB PO SCH ×4 (03:14→11:32)
[2017-01-01 04:00] VITALS: BP 101/66; PULSE 110; RESP 16; TEMP 98.8; O2SAT 100
[2017-01-01] MEDS: SUCRALFATE 1 GM/10 ML CUP PO SCH ×2 (05:25→11:32)
[2017-01-01] MEDS: HYDROmorphone HCL 4 MG TAB PO SCH ×3 (05:27→13:17)
[2017-01-01] MEDS: ALPRAZolam 1 MG TAB PO SCH ×3 (05:27→13:17)
[2017-01-01 05:36] LABS: HEMATOCRIT 26.3 % (35.0-46.0); REVIEW FLAG FINAL
[2017-01-01] MEDS: METHADONE HCL 10 MG TAB PO SCH ×2 (06:00→13:17)
[2017-01-01 08:00] VITALS: BP 109/73; PULSE 93; RESP 16; TEMP 98.2; O2SAT 100
[2017-01-01 08:46] VITALS: O2SAT 94
[2017-01-01] MEDS: SODIUM CHLORIDE 0.9% FLUSH 5 ML FLUSH FLUSH SCH (09:00)
[2017-01-01] MEDS: RIVAROXABAN 15 MG TAB PO SCH (09:37)
[2017-01-01] MEDS: POLYETHYLENE GLYCOL 17 GM PKG PO SCH (09:38)
[2017-01-01] MEDS: GABAPENTIN 300 MG CAP PO SCH ×2 (09:44→15:28)
[2017-01-01] MEDS: DRONABINOL 5 MG CAP PO SCH (09:44)
[2017-01-01] MEDS: NYSTAT/DIPHENHY/LIDO MOUTHWASH (Adult) 120ML SWISH-SWAL SCH ×2 (09:48→13:17)
[2017-01-01 11:10] LABS: HEMATOCRIT 27.3 % (35.0-46.0); REVIEW FLAG FINAL
[2017-01-01] MEDS: LORazepam 2 MG/ML VIAL IV PUSH PRN (11:32)
[2017-01-01 12:00] VITALS: BP 124/73; PULSE 105; RESP 20; TEMP 99.9; O2SAT 100
[2017-01-01 13:16] VITALS: BP 103/68; PULSE 97
--- NOTE | 2017-01-01 17:39 | HHI.DS ---
Discharge Summary Admission Date Dec 30, 2016 at 9:41 am Discharge Date: Jan 01, 2017 Admitting Diagnosis intractable nausea/vomiting, gynecologic cancer, status post chemoth (1) Intractable nausea and vomiting ICD Code: R11.2 (2) Fallopian tube carcinoma ICD Code: C57.00 (3) Leukocytosis ICD Code: D72.829 (4) Chronic pain ICD Code: G89.29 Procedures None. Brief History - From Admission This is a 46-year-old female with a PMH of Stage For Fallopian Tube CA on Chemo , h/o PE on Xarelto and Chronic Pain who presented to the ER w/ complaints of nausea, vomiting x3 days. States had Chemo on Thursday and has been having ongoing nausea/vomiting since then, unable to take PO. Follows w/ Oncologist Dr. Joshua Hidalgo at [facility], recent CT Abd/Pelvis w/ enlarging pelvic mass per patient. Denies fever, chills or diarrhea. On arrival, BP 135/88, HR 86, O2 sat 98% on RA, Afebrile. WBC 28. Chemistry unremarkable except for BUN of 20. Lactic Acid 1.9. Abdominal X-ray with no acute disease. S/p Zofran, Compazine and Morphine IV in ER w/ some improvement. Oncologist at [facility] contacted by ER physician, agreed that pt could remain here at [facility] without need for transfer to [facility] at this point in time. CBC/BMP: 01/01/17 0950 12/30/16 1114 Significant Findings Laboratory Tests Test 12/30/16 12/30/16 01/01/17 01/01/17 11:14 14:15 05:14 09:50 Hemoglobin 10.6 GM/DL 8.6 GM/DL 8.7 GM/DL (11.6-15.3) (11.6-15.3) (11.6-15.3) Hematocrit 33.2 % 26.3 % 27.3 % (35.0-46.0) (35.0-46.0) (35.0-46.0) Mean Corpuscular Hemoglobin 25.9 PG (27.0-34.0) Red Cell Distribution Width 19.2 % (11.6-17.2) Monocytes (%) (Auto) 18.3 % (0.0-8.0) Monocytes # (Auto) 1.4 TH/MM3 (0-0.9) Band Neutrophils % 23 % (0-6) Monocytes % 11 % (0-8) Metamyelocytes 4 % (0-1) Myelocytes 3 % (0-0) Toxic Granulation 1+ (NORMAL) Ovalocytes 1+ (NORMAL) Acanthocytes OCC (NORMAL) Potassium Level 3.3 MEQ/L (3.5-5.1) Blood Urea Nitrogen 5 MG/DL (7-18) Calcium Level 8.0 MG/DL (8.5-10.1) Urine Mucus FEW /lpf (OCC) Imaging Last Impressions Chest X-Ray 12/30/16 0000 Signed Impressions: Service Date/Time: Friday, December 30, 2016 10:14 - CONCLUSION: Normal examination. Right-sided Ehqxdv-m-Yium in excellent position. Da Garcia MD Abdomen X-Ray 12/27/16 0000 Signed Impressions: Service Date/Time: Tuesday, December 27, 2016 03:55 - CONCLUSION: No acute disease. Derek Miranda MD PE at Discharge GENERAL: Alert, Oriented x 3, NAD. SKIN: Warm and dry. HEAD: Normocephalic. EYES: No scleral icterus. No injection or drainage. NECK: Supple, trachea midline. No JVD or lymphadenopathy. CARDIOVASCULAR: Regular rate and rhythm without murmurs, gallops, or rubs. RESPIRATORY: Breath sounds equal bilaterally. No accessory muscle use. GASTROINTESTINAL: Abdomen soft, mildly tender to palpation, nondistended. MUSCULOSKELETAL: No cyanosis, or edema. BACK: Nontender without obvious deformity. No CVA tenderness. Pt update on day of discharge Patient is doing well. She still has pain but tolerating diet well. Has some nausea but improved. No vomiting. No fever, chills. Hospital Course This is a 46-year-old female with a PMH of Stage For Fallopian Tube CA on Chemo , h/o PE on Xarelto and Chronic Pain who presented to the ER w/ complaints of nausea, vomiting x3 days. States had Chemo on Thursday and has been having ongoing nausea/vomiting since then, unable to take PO. Follows w/ Oncologist Dr. Joshua Hidalgo at [facility], recent CT Abd/Pelvis w/ enlarging pelvic mass per patient. - Fever, Tachycardia in a cancer patient. Tachycardia improved. - Patient had two episodes of fever 100.5 and 100F on 12/30/2016. No fever > 100F today. - We obtained blood cultures, UA, CXR, CBC, BMP, Lactic acid and Procalcitonin - negative so far. - CXR unremarkable for any acute findings. D-dimer 0.19 - Continue IV fluid 150cc/hour while she is in the hospital. - Intractable nausea, vomiting - Improving. Tolerating full liquid and regular diet well. - Continue Zofran, Compazine, Phenergan. Continue IV fluid. - Continue Carafate while in the hospital. - Stage IV Fallopian tube cancer - Continue to follow up with [facility]. - Chronic pain - secondary to Fallopian Tube CA. Resume home Dilaudid PO and Methadone, Dilaudid IV as needed. Senna, Miralax prn. - History of PE - currently on Xarelto. Will discharge patient home. She has follow up with [facility] this month. Pt Condition on Discharge: Good Discharge Disposition: Discharge Home Discharge Time: <= 30 minutes Discharge Instructions DIET: Follow Instructions for: As Tolerated, No Restrictions Activities you can perform: Regular-No Restrictions New Medications: 3-in-1 Bedside Toilet (3-in-1 Bedside Toilet) 1 Mis Mis 1 EA .ROUTE DIRECTED #1 EA Walker with Front Wheels (Walker with Front Wheels) 1 Mis Mis 1 EA .ROUTE DIRECTED #1 Ref 0 EA Continued Medications: Alprazolam (Xanax) 1 Mg Tab 1 MG PO 5 TIMES A DAY ANXIETY Ref 0 TAB Dexamethasone (Dexamethasone) 4 Mg Tab 4 MG PO DAILY #30 Ref 0 TAB Dronabinol (Marinol) 5 Mg Cap 5 MG PO BID Ref 0 CAP Gabapentin (Gabapentin) 600 Mg Tab 600 MG PO BID #60 Ref 0 TAB Hydromorphone (Dilaudid) 8 Mg Tab 8 MG PO 5 TIMES A DAY Pain Management Ref 0 TAB Loratadine (Claritin) 10 Mg Cap 10 MG PO DAILY Allergy Management Ref 0 CAP Methadone (Methadone) 10 Mg Tab 20 MG PO Q8HR Ref 0 TAB Metoclopramide (Metoclopramide) 10 Mg Tab 10 MG PO Q6HR Ref 0 TAB Polyethylene Glycol 3350 Powder (Miralax Powder) 17 Gm Powd 17 GM PO BID Mix and dissolve one measuring cap-ful (17 grams) in water or juice. Constipation #1 Ref 0 BOTTLE Prochlorperazine Supp (Prochlorperazine Supp) 25 Mg Supp 25 MG RECTAL Q12H NAUSEA OR VOMITING #3 Ref 0 SUPP Rivaroxaban (Xarelto) 15 Mg Tab 15 MG PO BID Blood Clot Prevention Ref 0 TAB Sennosides (Senokot) 8.6 Mg Tab 8.6 MG PO 6 times daily Constipation #30 Ref 0 TAB Adebayo Ryan DO Jan 01, 2017 5:39 pm
== END 2017-01-01 15:50 | disposition home or self-care (01) | DRG 392 ==
LOC: NEPE 02:42 → INTOOBSV 05:10 → NEDA 05:10 → HOCA 06:13 → OBSVTOIN 12-30 09:41
PROVIDERS: ADMIT Hospitalist; ATTEND Hospitalist
DX: R11.2 Nausea with vomiting, unspecified (principal); C57.00 Malignant neoplasm of unspecified fallopian tube; T45.1X5A Adverse effect of antineoplastic and immunosuppressive drugs, initial encounter; G89.29 Other chronic pain; D72.829 Elevated white blood cell count, unspecified; Z86.711 Personal history of pulmonary embolism; Z79.01 Long term (current) use of anticoagulants
CPT/HCPCS: 71010; 74020; 80048; 80053; 81001; 83605; 83690; 84145; 85007; 85014; 85018; 85027; 85379; 86850; 86900; 86901; 87040; 87493; 87641; 94150; 96361; 96374; 96375; C9113; G0378; J0780; J1170; J2060; J2270; J2405; J2550; J7030

== ENCOUNTER 2017-03-01 07:13 | Emergency (ER) | payer MEDICARE, MEDICAID ==
[~2017-03-01] VITALS: Ht 160 cm; Wt 71.0 kg
[~2017-03-01 07:13] MED LIST changes: +DEXA4TAB PO; +METO10TA PO; +MISC-163; -NAPR500T PO; +WALKER WHEELS/F1 MIS; +XARE15TA PO; -[UNRECOGNIZED DRUG - CODE] PO
[2017-03-01 07:26] VITALS: BP 111/71; PULSE 67; RESP 16; TEMP 98.3; O2SAT 99
[2017-03-01] MEDS ORDERED: SODIUM CHLOR 0.9% 1000 ML INJ 1,000 ML IV SCH (07:35)
[2017-03-01] MEDS ORDERED: SODIUM CHLORIDE 0.9% FLUSH 10 ML FLUSH IV FLUSH PRN (07:45)
[2017-03-01] MEDS ORDERED: HYDROmorphone HCL PF 2 MG/ML VIAL IVS ONE (07:45)
[2017-03-01] MEDS ORDERED: KETOROLAC TROMETHAMINE 30 MG/ML (IVP) VIAL IVP ONE (07:45)
[2017-03-01] MEDS ORDERED: ONDANSETRON HCL 4 MG/2 ML VIAL IVP ONE (07:45)
[2017-03-01 08:07] LABS: HEMATOCRIT 32.5 % (35.0-46.0); MEAN CELL VOLUME 81.6 FL (80.0-100.0); MEAN CORPUSCULAR HEMOGLOBIN 25.4 PG (27.0-34.0); MEAN CORPUSCULAR HGB CONC 31.2 % (32.0-36.0); PLATELET COUNT 310 TH/MM3 (150-450); RED BLOOD COUNT 3.98 MIL/MM3 (4.00-5.30); RED CELL DISTRIBUTION WIDTH 18.6 % (11.6-17.2); WHITE BLOOD COUNT 9.8 TH/MM3 (4.0-11.0)
[2017-03-01 08:10] VITALS: O2SAT 98
[2017-03-01 08:13] LABS: HEMO FLAGS AUTO DIFF
[2017-03-01 08:16] LABS: POTASSIUM 3.2 MEQ/L (3.5-5.1)
[2017-03-01 08:19] LABS: BICARBONATE 29.4 MEQ/L (21.0-32.0)
[2017-03-01 08:29] LABS: BANDS 12 % (0-6); METAMYELOCYTES 4 % (0-1); NEUTROPHIL # MANUAL DIFF 7.4 TH/MM3 (1.8-7.7); POLYS (SEG NEUTROPHILS) 59 % (16-70); PROMYELOCYTES 1 % (0-0); WBC DIFF SAMPLE 100
[2017-03-01 08:31] LABS: ACANTHOCYTES OCC (NORMAL); OVALOCYTES 1+ (NORMAL); PLATELET ESTIMATE SMEAR NORMAL (NORMAL); PLATELET MORPHOLOGY NORMAL (NORMAL); ROULEAUX PRESENT (NORMAL); SCAN/DIFF FINAL DIFF MANUAL
[2017-03-01] MEDS ORDERED: POTASSIUM CHLORIDE 20 MEQ CONTROLLED RELEASE TAB PO ONE (08:45)
[2017-03-01] MEDS ORDERED: SODIUM CHLOR 0.9% 1000 ML INJ 1,000 ML IV ONE (08:45)
[2017-03-01 08:55] VITALS: BP 103/64; PULSE 71; RESP 16; O2SAT 99
--- NOTE | 2017-03-01 09:04 | PD ---
HPI Chief Complaint: Dizziness Time Seen by Provider: 07:16 Travel History International Travel<30 days: No Contact w/Intl Traveler<30days: No Traveled to known affect area: No History of Present Illness HPI Patient's 46 years old. She has cancer of the fallopian tubes. She follows with [facility] in [place]. She received chemotherapy about 5 days ago. She has also been receiving Neulasta. She reports typically associated with these medication she develops dehydration and weakness. She also has bone pain involving the ribs primarily. He is familiar to her. She's had no fever or vomiting. Oral intake has been decreased. She reports compliance with all medications including Xarelto. PFSH Past Medical History Hx Anticoagulant Therapy: Yes (XARELTO) Anxiety: Yes Depression: Yes Cancer: Yes (DX FALLOPIAN TUBE CA) Cardiovascular Problems: No Chemotherapy: Yes (THURSDAY) Diabetes: No Diminished Hearing: No Endocrine: No Gastrointestinal Disorders: No (ABDOMINAL TUMOR) Genitourinary: No Hepatitis: No Hiatal Hernia: No Heparin Induced Thrombocytopen: No Hypertension: No Immune Disorder: No Implanted Vascular Access Dvce: Yes (power port right subclavian) Medical other: No Musculoskeletal: No Neurologic: Yes Psychiatric: Yes Reproductive: Yes (FALLOPIAN TUBE CANCER) Respiratory: Yes (BLOOD CLOT RIGHT LUNG) Migraines: No Radiation Therapy: No Sickle Cell Disease: No Thyroid Disease: No Tetanus Vaccination: Unknown PNEUMOCCOCAL Vaccine (Year): 2 ?: Not : 0 Past Surgical History Abdominal Surgery: Yes (CANCER REMOVED FROM AROUND AORTA & BOWELS) Body Medical Devices: Infussa-port Genitourinary Surgery: Yes (BENIGN & malignant TUMORS REMOVED) Gynecologic Surgery: Yes (MYOMECTOMY) Hysterectomy: Yes Other Surgery: Yes (HYSTERECTOMY, TORN ROTATOR CUFFS, ) Social History Alcohol Use: No Tobacco Use: No (former) Substance Use: No Allergies-Medications (Allergen,Severity, Reaction): Coded Allergies: Adhesives (Verified Allergy, Intermediate, SKIN REACTION, 12/27/16) Doxil (Verified Allergy, Intermediate, Rash, 12/27/16) Reported Meds & Prescriptions Reported Meds & Active Scripts Active Walker with Front Wheels (Device) 1 Mis Mis 1 Ea .ROUTE DIRECTED 3-in-1 Bedside Toilet (Device) 1 Mis Mis 1 Ea .ROUTE DIRECTED Reported Xarelto (Rivaroxaban) 15 Mg Tab 20 Mg PO DAILY Metoclopramide (Metoclopramide HCl) 10 Mg Tab 10 Mg PO Q6HR Dexamethasone 4 Mg Tab 4 Mg PO DAILY Prochlorperazine Supp (Prochlorperazine) 25 Mg Supp 25 Mg RECTAL Q12H Miralax Powder (Polyethylene Glycol 3350 Powder) 17 Gm Powd 17 Gm PO BID Mix and dissolve one measuring cap-ful (17 grams) in water or juice. Methadone (Methadone HCl) 10 Mg Tab 20 Mg PO Q8HR Claritin (Loratadine) 10 Mg Cap 10 Mg PO DAILY Dilaudid (Hydromorphone HCl) 8 Mg Tab 8 Mg PO 5 TIMES A DAY Gabapentin 600 Mg Tab 600 Mg PO BID Marinol (Dronabinol) 5 Mg Cap 5 Mg PO BID Senokot (Sennosides) 8.6 Mg Tab 8.6 Mg PO 6 TIMES DAILY Xanax (Alprazolam) 1 Mg Tab 1 Mg PO 5 TIMES A DAY Review of Systems Except as stated in HPI: all other systems reviewed are Neg General / Constitutional: No: Fever, Chills Gastrointestinal: Positive: Nausea, No: Vomiting, Abdominal Pain Musculoskeletal: Positive: Pain Physical Exam Narrative GENERAL: 46-year-old female pleasant well-nourished well-developed SKIN: Focused skin assessment warm/dry. HEAD: Atraumatic. Normocephalic. Alopecia. EYES: Pupils equal and round. No scleral icterus. No injection or drainage. ENT: No nasal bleeding or discharge. Mucous membranes pink and moist. NECK: Trachea midline. No JVD. CARDIOVASCULAR: Regular rate and rhythm. No murmur appreciated. RESPIRATORY: No accessory muscle use. Clear to auscultation. Breath sounds equal bilaterally. Right anterior chest wall chemotherapy port present. GASTROINTESTINAL: Abdomen soft, non-tender, nondistended. Hepatic and splenic margins not palpable. MUSCULOSKELETAL: No obvious deformities. No clubbing. No cyanosis. No edema. NEUROLOGICAL: Awake and alert. No obvious cranial nerve deficits. Motor grossly within normal limits. Normal speech. PSYCHIATRIC: Appropriate mood and affect; insight and judgment normal. Data Data Last Documented VS Vital Signs Date Time Temp Pulse Resp B/P Pulse Ox O2 Delivery O2 Flow Rate FiO2 03/01/17 08:55 71 16 103/64 99 Room Air 03/01/17 07:26 98.3 Vital signs reviewed Orders Basic Metabolic Panel (Bmp) (03/01/17 07:35) Complete Blood Count With Diff (03/01/17 07:35) Iv Access Insert/Monitor (03/01/17 07:35) Ecg Monitoring (03/01/17 07:35) Oximetry (03/01/17 07:35) Hydromorphone Pf Inj (Dilaudid Pf Inj) (03/01/17 07:45) Ondansetron Inj (Zofran Inj) (03/01/17 07:45) Sodium Chlor 0.9% 1000 Ml Inj (Ns 1000 M (03/01/17 07:35) Sodium Chloride 0.9% Flush (Ns Flush) (03/01/17 07:45) Ketorolac Inj (Toradol Inj) (03/01/17 07:45) Potassium Chloride (Kcl) (03/01/17 08:45) Sodium Chlor 0.9% 1000 Ml Inj (Ns 1000 M (03/01/17 08:45) Labs Laboratory Tests Test 03/01/17 07:50 White Blood Count 9.8 TH/MM3 Red Blood Count 3.98 MIL/MM3 Hemoglobin 10.1 GM/DL Hematocrit 32.5 % Mean Corpuscular Volume 81.6 FL Mean Corpuscular Hemoglobin 25.4 PG Mean Corpuscular Hemoglobin 31.2 % Concent Red Cell Distribution Width 18.6 % Platelet Count 310 TH/MM3 Mean Platelet Volume 8.3 FL Neutrophils (%) (Auto) % Lymphocytes (%) (Auto) % Monocytes (%) (Auto) % Eosinophils (%) (Auto) % Basophils (%) (Auto) % Neutrophils # (Auto) TH/MM3 Lymphocytes # (Auto) TH/MM3 Monocytes # (Auto) TH/MM3 Eosinophils # (Auto) TH/MM3 Basophils # (Auto) TH/MM3 CBC Comment AUTO DIFF Differential Total Cells 100 Counted Neutrophils % (Manual) 59 % Band Neutrophils % 12 % Lymphocytes % 22 % Monocytes % 2 % Neutrophils # (Manual) 7.4 TH/MM3 Metamyelocytes 4 % Promyelocytes 1 % Differential Comment FINAL DIFF MANUAL Platelet Estimate NORMAL Platelet Morphology Comment NORMAL Ovalocytes 1+ Acanthocytes OCC Rouleau PRESENT Sodium Level 143 MEQ/L Potassium Level 3.2 MEQ/L Chloride Level 103 MEQ/L Carbon Dioxide Level 29.4 MEQ/L Anion Gap 11 MEQ/L Blood Urea Nitrogen 22 MG/DL Creatinine 0.69 MG/DL Estimat Glomerular Filtration 111 ML/MIN Rate Random Glucose 103 MG/DL Calcium Level 8.3 MG/DL MDM Medical Decision Making Medical Screen Exam Complete: Yes Emergency Medical Condition: Yes Medical Record Reviewed: Yes Differential Diagnosis dehydration, electrolyte imbalance, anemia Narrative Course CBC & BMP Diagram 03/01/17 07:50 Patient is a bandemia not unexpected with Neulasta. 2L IVF. Pain improved at approx 850AM. Potassium replenished. The patient is resting comfortably and feels better, is alert and in no distress. The patients results and examination findings were discussed. The repeat examination is unremarkable and benign. The history, exam, diagnostic testing, and current condition do not suggest any significant pathology to warrant further testing, continued ED treatment, admission, or surgical evaluation at this point. The vital signs have been stable. The patient does not have uncontrollable pain, intractable vomiting, or other significant symptoms. The patient's condition is stable and appropriate for discharge. The patient will pursue further outpatient evaluation with a primary care physician or other designated or consulting physician as indicated in the discharge instructions. The patient expressed understanding and was agreeable with this plan. Diagnosis Primary Impression: Dehydration Additional Impressions: Hypokalemia Pain Referrals: Oncologist 2 days Additional Instructions: You have a choice when it comes to health care, and we are glad that you chose [facility]. Hopefully, we have met your expectations on today's visit. You are welcome to return to [facility] at any time, as we are committed to meeting the health care needs of our community. Med/Other Pt SpecificInfo: No Change to Meds Disposition: 01 DISCHARGE HOME Condition: Stable Grey Beal MD Mar 01, 2017 09:04
== END 2017-03-01 10:33 | disposition home or self-care (01) ==
LOC: PHED 07:13
DX: E86.0 Dehydration (principal); E87.6 Hypokalemia; F41.8 Other specified anxiety disorders; C57.00 Malignant neoplasm of unspecified fallopian tube; Z79.899 Other long term (current) drug therapy; Z79.01 Long term (current) use of anticoagulants; Z87.891 Personal history of nicotine dependence
CPT/HCPCS: 80048; 85007; 85027; 96361; 96374; 96375; 99284; J1170; J1642; J1885; J2405; J7030

== ENCOUNTER 2017-03-22 07:28 | Emergency (ER) | payer MEDICARE, MEDICAID ==
[~2017-03-22] VITALS: Ht 160 cm; Wt 73.0 kg
[2017-03-22] MEDS ORDERED: SODIUM CHLOR 0.9% 1000 ML INJ 1,000 ML IV SCH (07:37)
[2017-03-22 07:43] VITALS: BP 96/73; PULSE 77; RESP 26; TEMP 97.7; O2SAT 100
[2017-03-22] MEDS ORDERED: HYDROmorphone HCL PF 1 MG/ML VIAL IVS ONE (07:45)
[2017-03-22] MEDS ORDERED: SODIUM CHLOR 0.9% 1000 ML INJ 1,000 ML IV ONE (07:45)
[2017-03-22] MEDS ORDERED: SODIUM CHLORIDE 0.9% FLUSH 10 ML FLUSH IVF PRN ×2 (07:45)
--- NOTE | 2017-03-22 07:55 | PD ---
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 She is followed by a doctor Michael at [facility] in [place]. Patient is currently receiving hemotherapy, carboplatin and Taxotere last 5 days ago. She has neutropenia after therapy and so has been receiving Neulasta infusions. Patient states that each time she gets Neulasta against her body aches, bone pain. Patient states that she feels this mostly along the bones of the rib cage, hips and ankles. Patient notes nausea, anorexia and poor oral intake. Decreased urinary output, and is concern for dehydration. No vomiting , diarrhea, abdominal pain. She notes some chills, but each time she is taken her temperature is been normal. She states that the pain along the rib cages achy and throbbing, constant. Is not made worse with exertion, she denies any shortness of breath or pleuritic-type component. Per chart review patient was seen here approximately one month ago with normal saline to medical symptoms. PFSH Past Medical History Hx Anticoagulant Therapy: Yes (XARELTO) Anxiety: Yes Depression: Yes Cancer: Yes (DX FALLOPIAN TUBE CA mets to lung, colon, lymph) Cardiovascular Problems: No Chemotherapy: Yes (THURSDAY) Diabetes: No Diminished Hearing: No Endocrine: No Gastrointestinal Disorders: Yes (ABDOMINAL TUMOR) Genitourinary: No Hepatitis: No Hiatal Hernia: No Heparin Induced Thrombocytopen: No Hypertension: No Immune Disorder: No Implanted Vascular Access Dvce: Yes (power port right subclavian) Musculoskeletal: No Neurologic: Yes Psychiatric: Yes Reproductive: Yes (FALLOPIAN TUBE CANCER) Respiratory: Yes (BLOOD CLOT RIGHT LUNG) Migraines: No Radiation Therapy: No Sickle Cell Disease: No Thyroid Disease: No Tetanus Vaccination: > 5 Years Influenza Vaccination: Yes PNEUMOCCOCAL Vaccine (Year): 2 ?: Not : 0 Past Surgical History Abdominal Surgery: Yes (CANCER REMOVED FROM AROUND AORTA & BOWELS) Body Medical Devices: Infussa-port RIGHT CHEST WALL Genitourinary Surgery: Yes (BENIGN & malignant TUMORS REMOVED) Gynecologic Surgery: Yes (MYOMECTOMY) Hysterectomy: Yes Other Surgery: Yes (HYSTERECTOMY, TORN ROTATOR CUFFS, ) Social History Alcohol Use: No Tobacco Use: No (former) Substance Use: No Allergies-Medications (Allergen,Severity, Reaction): Coded Allergies: Adhesives (Verified Allergy, Intermediate, SKIN REACTION, 03/22/17) Doxil (Verified Allergy, Intermediate, Rash, 03/22/17) Reported Meds & Prescriptions Reported Meds & Active Scripts Active Walker with Front Wheels (Device) 1 Mis Mis 1 Ea .ROUTE DIRECTED 3-in-1 Bedside Toilet (Device) 1 Mis Mis 1 Ea .ROUTE DIRECTED Reported Xarelto (Rivaroxaban) 15 Mg Tab 20 Mg PO DAILY Metoclopramide (Metoclopramide HCl) 10 Mg Tab 10 Mg PO Q6HR Dexamethasone 4 Mg Tab 4 Mg PO DAILY Prochlorperazine Supp (Prochlorperazine) 25 Mg Supp 25 Mg RECTAL Q12H Miralax Powder (Polyethylene Glycol 3350 Powder) 17 Gm Powd 17 Gm PO BID Mix and dissolve one measuring cap-ful (17 grams) in water or juice. Methadone (Methadone HCl) 10 Mg Tab 20 Mg PO Q8HR Claritin (Loratadine) 10 Mg Cap 10 Mg PO DAILY Dilaudid (Hydromorphone HCl) 8 Mg Tab 8 Mg PO 5 TIMES A DAY Gabapentin 600 Mg Tab 600 Mg PO BID Marinol (Dronabinol) 5 Mg Cap 5 Mg PO BID Senokot (Sennosides) 8.6 Mg Tab 8.6 Mg PO 6 TIMES DAILY Xanax (Alprazolam) 1 Mg Tab 1 Mg PO 5 TIMES A DAY Review of Systems Except as stated in HPI: all other systems reviewed are Neg Physical Exam Narrative GENERAL: Chronically ill-appearing female in no acute distress SKIN: Focused skin assessment warm/dry. HEAD: Normocephalic. EYES: No scleral icterus. No injection or drainage. ENT: Mucous membranes dry NECK: Supple without nuchal rigidity CARDIOVASCULAR: Regular rate and rhythm. No murmur appreciated. No tenderness to palpation the chest wall. RESPIRATORY: No accessory muscle use. Clear to auscultation. Breath sounds equal bilaterally. GASTROINTESTINAL: Abdomen soft, non-tender, nondistended. MUSCULOSKELETAL: No obvious deformities. No edema. NEUROLOGICAL: Awake and alert. Motor grossly within normal limits. Normal speech. PSYCHIATRIC: Appropriate mood and affect; insight and judgment normal. Data Data Last Documented VS Vital Signs Date Time Temp Pulse Resp B/P Pulse Ox O2 Delivery O2 Flow Rate FiO2 03/22/17 08:48 62 16 105/62 100 Room Air 03/22/17 07:43 97.7 Orders Electrocardiogram (03/22/17 07:37) Basic Metabolic Panel (Bmp) (03/22/17 07:37) Complete Blood Count With Diff (03/22/17 07:37) Troponin I (03/22/17 07:37) Chest, Single Ap (03/22/17 07:37) Ecg Monitoring (03/22/17 07:37) Iv Access Insert/Monitor (03/22/17 07:37) Oximetry (03/22/17 07:37) Sodium Chloride 0.9% Flush (Ns Flush) (03/22/17 07:45) Sodium Chlor 0.9% 1000 Ml Inj (Ns 1000 M (03/22/17 07:37) Hydromorphone Pf Inj (Dilaudid Pf Inj) (03/22/17 07:45) Heparin Central Flush (Heparin Central F (03/22/17 07:45) Sodium Chloride 0.9% Flush (Ns Flush) (03/22/17 07:45) Heparin Central Flush (Heparin Central F (03/22/17 07:45) Sodium Chlor 0.9% 1000 Ml Inj (Ns 1000 M (03/22/17 07:45) Ondansetron Inj (Zofran Inj) (03/22/17 08:00) Blood Culture (03/22/17 08:37) Ondansetron Inj (Zofran Inj) (03/22/17 08:45) Labs Laboratory Tests Test 03/22/17 08:00 White Blood Count 12.6 TH/MM3 Red Blood Count 4.33 MIL/MM3 Hemoglobin 11.0 GM/DL Hematocrit 35.1 % Mean Corpuscular Volume 81.1 FL Mean Corpuscular Hemoglobin 25.5 PG Mean Corpuscular Hemoglobin 31.4 % Concent Red Cell Distribution Width 19.0 % Platelet Count 274 TH/MM3 Mean Platelet Volume 8.4 FL Neutrophils (%) (Auto) % Lymphocytes (%) (Auto) % Monocytes (%) (Auto) % Eosinophils (%) (Auto) % Basophils (%) (Auto) % Neutrophils # (Auto) TH/MM3 Lymphocytes # (Auto) TH/MM3 Monocytes # (Auto) TH/MM3 Eosinophils # (Auto) TH/MM3 Basophils # (Auto) TH/MM3 CBC Comment AUTO DIFF Differential Total Cells 100 Counted Neutrophils % (Manual) 63 % Band Neutrophils % 14 % Lymphocytes % 18 % Monocytes % 2 % Neutrophils # (Manual) 10.1 TH/MM3 Metamyelocytes 3 % Differential Comment FINAL DIFF MANUAL Platelet Estimate NORMAL Platelet Morphology Comment NORMAL Ovalocytes 1+ Acanthocytes OCC Rouleau PRESENT Keratocytes OCC Sodium Level 138 MEQ/L Potassium Level 3.4 MEQ/L Chloride Level 100 MEQ/L Carbon Dioxide Level 30.0 MEQ/L Anion Gap 8 MEQ/L Blood Urea Nitrogen 18 MG/DL Creatinine 0.61 MG/DL Estimat Glomerular Filtration 128 ML/MIN Rate Random Glucose 107 MG/DL Calcium Level 8.6 MG/DL Troponin I LESS THAN 0.02 NG/ML MDM Medical Decision Making Medical Screen Exam Complete: Yes Emergency Medical Condition: Yes Medical Record Reviewed: Yes Differential Diagnosis 46-year-old female with metastatic fallopian tube carcinoma, PE last chemotherapy 5 days ago receiving Neulasta for neutropenia here with similar aching pain in the rib cage, hips, feet from when she is receive Neulasta in the past. Associated nausea, anorexia and decreased urinary output. Differential includes dehydration, electrolyte abnormality, ACS, medication side effect, and less likely PE, dissection. Narrative Course Patient placed on monitor, IV established and blood obtained. A twelve-lead EKG shows sinus rhythm without notable ST or T-wave abnormalities and normal intervals. Her port was accessed, given 2 L normal saline bolus, 1 mg Dilaudid 2, formal exam Zofran 2. Portable chest x-ray obtained that by my read shows no acute abnormalities. CBC, BMP, troponin notable for WBC 12.6 with bandemia. This is likely from her Neulasta, though an early bacteremia or sepsis cannot be excluded. Patient feels markedly improved after the above therapy and was able to tolerate oral challenge. Would like to be discharged home. She sees her oncologist in approximately one week. Diagnosis Primary Impression: Dehydration Additional Impressions: Nausea Anorexia Medication side effect Qualified Code: T88.7XXA - Medication side effect, initial encounter Referrals: Oncologist 1 week Additional Instructions: Continue home medications as prescribed. Return to the ER for the warning signs discussed. Follow-up with oncologist as scheduled. Med/Other Pt SpecificInfo: No Change to Meds Disposition: 01 DISCHARGE HOME Condition: Stable Denita Madrigal MD March 22, 2017 07:55
--- NOTE | 2017-03-22 07:56 | RADHPO ---
EXAM DATE/TIME: 03/22/2017 07:41 [facility] COMPARISON: CHEST SINGLE AP, December 30, 2016, 10:14. INDICATIONS : Chest pains MEDICAL HISTORY : Fallopian tube cancer SURGICAL HISTORY : None. ENCOUNTER: Initial ACUITY: 1 day PAIN SCORE: 7/10 LOCATION: Bilateral chest FINDINGS: A single view of the chest demonstrates the lungs to be symmetrically aerated without evidence of mas s, infiltrate or effusion. The cardiomediastinal contours are unremarkable. Osseous structures are intact. Right-sided portacatheter again seen with tip overlying the SVC. CONCLUSION: No acute disease. Derek Miranda MD on March 22, 2017 at 7:55 Board Certified Radiologist. This report was verified electronically.
[2017-03-22] MEDS ORDERED: ONDANSETRON HCL 4 MG/2 ML VIAL IV PUSH ONE ×2 (08:00→08:45)
[2017-03-22 08:12] LABS: HEMATOCRIT 35.1 % (35.0-46.0); MEAN CELL VOLUME 81.1 FL (80.0-100.0); MEAN CORPUSCULAR HEMOGLOBIN 25.5 PG (27.0-34.0); MEAN CORPUSCULAR HGB CONC 31.4 % (32.0-36.0); PLATELET COUNT 274 TH/MM3 (150-450); RED BLOOD COUNT 4.33 MIL/MM3 (4.00-5.30); WHITE BLOOD COUNT 12.6 TH/MM3 (4.0-11.0)
[2017-03-22 08:14] LABS: HEMO FLAGS AUTO DIFF
[2017-03-22 08:21] LABS: CHLORIDE 100 MEQ/L (98-107); POTASSIUM 3.4 MEQ/L (3.5-5.1); SODIUM (NA) 138 MEQ/L (136-145)
[2017-03-22 08:24] LABS: ANION GAP 8 MEQ/L (5-15); BLOOD UREA NITROGEN 18 MG/DL (7-18)
[2017-03-22 08:27] LABS: GLOMERULAR FILTRATION RATE 128 ML/MIN (>89)
[2017-03-22 08:33] LABS: BANDS 14 % (0-6); METAMYELOCYTES 3 % (0-1); NEUTROPHIL # MANUAL DIFF 10.1 TH/MM3 (1.8-7.7); POLYS (SEG NEUTROPHILS) 63 % (16-70); WBC DIFF SAMPLE 100
[2017-03-22 08:34] LABS: ACANTHOCYTES OCC (NORMAL); KERATOCYTES OCC (NORMAL); OVALOCYTES 1+ (NORMAL); PLATELET ESTIMATE SMEAR NORMAL (NORMAL); PLATELET MORPHOLOGY NORMAL (NORMAL); ROULEAUX PRESENT (NORMAL); SCAN/DIFF FINAL DIFF MANUAL
[2017-03-22 08:48] VITALS: BP 105/62; PULSE 62; RESP 16; O2SAT 100
[2017-03-22] MEDS ORDERED: HYDROmorphone HCL PF 1 MG/ML VIAL IV PUSH ONE (09:45)
[2017-03-22 09:59] VITALS: BP 103/61; PULSE 63; RESP 16; O2SAT 100
--- NOTE | 2017-03-23 13:15 | EKG ---
Date Performed: 03/22/2017 Time Performed: 07:36:30 PTAGE: 46 years EKG: Sinus rhythm Normal ECG Compared to prior tracing no significant change PREVIOUS TRACING : 09/12/2015 05.39 DOCTOR: Real Cruz Interpretating Date/Time 03/23/2017 13:13:16
== END 2017-03-22 10:53 | disposition home or self-care (01) ==
LOC: PHED 07:28
DX: E86.0 Dehydration (principal); R11.0 Nausea; R63.0 Anorexia; D70.1 Agranulocytosis secondary to cancer chemotherapy; T88.7XXA Unspecified adverse effect of drug or medicament, initial encounter; Z79.899 Other long term (current) drug therapy; Z79.01 Long term (current) use of anticoagulants; Z85.44 Personal history of malignant neoplasm of other female genital organs; C78.00 Secondary malignant neoplasm of unspecified lung; F41.8 Other specified anxiety disorders; D70.2 Other drug-induced agranulocytosis; Y92.9 Unspecified place or not applicable
CPT/HCPCS: 71010; 80048; 84484; 85007; 85027; 87040; 93005; 96361; 96374; 96375; 96376; 99283; J1170; J1642; J2405; J7030

== ENCOUNTER 2017-04-12 09:32 | Emergency (ER) | payer MEDICARE, MEDICAID ==
[~2017-04-12] VITALS: Ht 161.3 cm; Wt 72.0 kg
[2017-04-12 09:34] VITALS: BP 118/85; PULSE 87; RESP 17; TEMP 98.4; O2SAT 99
--- NOTE | 2017-04-12 09:59 | PD ---
HPI Chief Complaint: GI Complaint Time Seen by Provider: 09:40 Travel History International Travel<30 days: No Contact w/Intl Traveler<30days: No Traveled to known affect area: No History of Present Illness HPI The patient was seen and examined in the presence of the nurse. This patient received chemotherapy for metastatic cancer. She has chronic pain and takes Dilaudid daily. She received chemotherapy a few days ago. She complains of diffuse pain as well as nausea vomiting and diarrhea. Symptoms severity is moderate. No alleviating factors. Duration is 2 days. PFSH Past Medical History Hx Anticoagulant Therapy: Yes (XARELTO) Anxiety: Yes Depression: Yes Cancer: Yes (DX FALLOPIAN TUBE CA mets to lung, colon, lymph) Cardiovascular Problems: No Chemotherapy: Yes (THURSDAY) Diabetes: No Diminished Hearing: No Endocrine: No Gastrointestinal Disorders: Yes (ABDOMINAL TUMOR) Genitourinary: No Hepatitis: No Hiatal Hernia: No Heparin Induced Thrombocytopen: No Hypertension: No Immune Disorder: No Implanted Vascular Access Dvce: Yes (power port right subclavian) Musculoskeletal: No Neurologic: Yes Psychiatric: Yes Reproductive: Yes (FALLOPIAN TUBE CANCER) Respiratory: Yes (BLOOD CLOT RIGHT LUNG) Migraines: No Radiation Therapy: No Sickle Cell Disease: No Thyroid Disease: No PNEUMOCCOCAL Vaccine (Year): 2 : 0 Past Surgical History Abdominal Surgery: Yes (CANCER REMOVED FROM AROUND AORTA & BOWELS) Body Medical Devices: Infussa-port RIGHT CHEST WALL Genitourinary Surgery: Yes (BENIGN & malignant TUMORS REMOVED) Gynecologic Surgery: Yes (MYOMECTOMY) Hysterectomy: Yes Other Surgery: Yes (HYSTERECTOMY, TORN ROTATOR CUFFS, ) Social History Alcohol Use: No Tobacco Use: No (former) Substance Use: No Allergies-Medications (Allergen,Severity, Reaction): Coded Allergies: Adhesives (Verified Allergy, Intermediate, SKIN REACTION, 04/12/17) Doxil (Verified Allergy, Intermediate, Rash, 04/12/17) Reported Meds & Prescriptions Reported Meds & Active Scripts Active Walker with Front Wheels (Device) 1 Mis Mis 1 Ea .ROUTE DIRECTED Reported Xarelto (Rivaroxaban) 15 Mg Tab 20 Mg PO DAILY Metoclopramide (Metoclopramide HCl) 10 Mg Tab 10 Mg PO Q6HR Dexamethasone 4 Mg Tab 4 Mg PO DAILY Prochlorperazine Supp (Prochlorperazine) 25 Mg Supp 25 Mg RECTAL Q12H Methadone (Methadone HCl) 10 Mg Tab 20 Mg PO Q8HR Claritin (Loratadine) 10 Mg Cap 10 Mg PO DAILY Dilaudid (Hydromorphone HCl) 8 Mg Tab 8 Mg PO 5 TIMES A DAY Gabapentin 600 Mg Tab 600 Mg PO BID Marinol (Dronabinol) 5 Mg Cap 5 Mg PO BID Senokot (Sennosides) 8.6 Mg Tab 8.6 Mg PO 6 TIMES DAILY Xanax (Alprazolam) 1 Mg Tab 1 Mg PO 5 TIMES A DAY Review of Systems General / Constitutional: No: Fever Eyes: No: Visual changes HENT: No: Headaches Cardiovascular: No: Chest Pain or Discomfort Respiratory: No: Shortness of Breath Gastrointestinal: Positive: Nausea, Vomiting, Diarrhea, No: Abdominal Pain Genitourinary: No: Dysuria Musculoskeletal: Positive: Pain Skin: No Rash Neurologic: Positive: Weakness Psychiatric: No: Depression Endocrine: No: Polydipsia Hematologic/Lymphatic: No: Easy Bruising Physical Exam Narrative GENERAL: Well-nourished, well-developed patient with chronic pain and very tearful and anxious . SKIN: Focused skin assessment reveals no rash and nodules. Skin is Warm and dry. HEAD: Atraumatic. Normocephalic. EYES: Pupils equal and round. No scleral icterus. No injection or drainage. ENT: No nasal bleeding or discharge. Mucous membranes pink and moist. NECK: Trachea midline. No JVD. CARDIOVASCULAR: Regular rate and rhythm. No murmur appreciated. RESPIRATORY: No accessory muscle use. Clear to auscultation. Breath sounds equal bilaterally. GASTROINTESTINAL: Abdomen soft, non-tender, nondistended. Hepatic and splenic margins not palpable. MUSCULOSKELETAL: No obvious deformities. No clubbing. No cyanosis. No edema. NEUROLOGICAL: Awake and alert. No obvious cranial nerve deficits. Motor grossly within normal limits. Normal speech. PSYCHIATRIC: Appropriate mood and affect; insight and judgment normal. Data Data Last Documented VS Vital Signs Date Time Temp Pulse Resp B/P Pulse Ox O2 Delivery O2 Flow Rate FiO2 04/12/17 09:34 98.4 87 17 118/85 99 Orders Ondansetron Inj (Zofran Inj) (04/12/17 10:00) Sodium Chlor 0.9% 1000 Ml Inj (Ns 1000 M (04/12/17 10:00) Heparin Central Flush (Heparin Central F (04/12/17 10:00) Hydromorphone Pf Inj (Dilaudid Pf Inj) (04/12/17 10:00) Complete Blood Count With Diff (04/12/17 09:52) Basic Metabolic Panel (Bmp) (04/12/17 09:52) Labs Laboratory Tests Test 04/12/17 10:20 White Blood Count 10.8 TH/MM3 Red Blood Count 4.64 MIL/MM3 Hemoglobin 12.0 GM/DL Hematocrit 37.3 % Mean Corpuscular Volume 80.3 FL Mean Corpuscular Hemoglobin 25.9 PG Mean Corpuscular Hemoglobin 32.2 % Concent Red Cell Distribution Width 19.1 % Platelet Count 235 TH/MM3 Mean Platelet Volume 8.9 FL Neutrophils (%) (Auto) % Lymphocytes (%) (Auto) % Monocytes (%) (Auto) % Eosinophils (%) (Auto) % Basophils (%) (Auto) % Neutrophils # (Auto) TH/MM3 Lymphocytes # (Auto) TH/MM3 Monocytes # (Auto) TH/MM3 Eosinophils # (Auto) TH/MM3 Basophils # (Auto) TH/MM3 CBC Comment AUTO DIFF Differential Total Cells 100 Counted Neutrophils % (Manual) 63 % Band Neutrophils % 10 % Lymphocytes % 23 % Monocytes % 2 % Neutrophils # (Manual) 8.1 TH/MM3 Metamyelocytes 2 % Differential Comment FINAL DIFF MANUAL Platelet Estimate NORMAL Platelet Morphology Comment NORMAL Ovalocytes 1+ Acanthocytes OCC Rouleau PRESENT Sodium Level 138 MEQ/L Potassium Level 3.6 MEQ/L Chloride Level 99 MEQ/L Carbon Dioxide Level 27.9 MEQ/L Anion Gap 11 MEQ/L Blood Urea Nitrogen 21 MG/DL Creatinine 0.69 MG/DL Estimat Glomerular Filtration 111 ML/MIN Rate Random Glucose 96 MG/DL Calcium Level 9.1 MG/DL [facility] Medical Decision Making Medical Screen Exam Complete: Yes Emergency Medical Condition: Yes Medical Record Reviewed: Yes Differential Diagnosis Dehydration, electrolyte abnormality, neutropenia, gastroenteritis Narrative Course I have reviewed the patient's electronic medical record. Patient was here 3 weeks ago and had normal electrolytes Port is accessed I gave her IV Dilaudid and IV Zofran 1 L normal saline IV bolus CBC is normal Metabolic profile is normal I gave her an additional dose of Zofran She is euvolemic Vitals normal and stable for outpatient follow-up Diagnosis Primary Impression: Nausea and vomiting Qualified Code: R11.2 - Non-intractable vomiting with nausea, unspecified vomiting type Additional Impressions: Dehydration Gynecologic cancer Constipation due to opioid therapy Additional Instructions: The patient was advised to follow up with their physician and return if they worsen. Med/Other Pt SpecificInfo: Other Disposition: 01 DISCHARGE HOME Condition: Stable Ryder Burk MD Apr 12, 2017 09:59
[2017-04-12] MEDS ORDERED: SODIUM CHLOR 0.9% 1000 ML INJ 1,000 ML IV ONE (10:00)
[2017-04-12] MEDS ORDERED: HYDROmorphone HCL PF 1 MG/ML VIAL IVS ONE (10:00)
[2017-04-12] MEDS ORDERED: ONDANSETRON HCL 4 MG/2 ML VIAL IVP ONE ×2 (10:00→11:30)
[2017-04-12 10:35] LABS: HEMATOCRIT 37.3 % (35.0-46.0); MEAN CELL VOLUME 80.3 FL (80.0-100.0); MEAN CORPUSCULAR HEMOGLOBIN 25.9 PG (27.0-34.0); MEAN CORPUSCULAR HGB CONC 32.2 % (32.0-36.0); PLATELET COUNT 235 TH/MM3 (150-450); POTASSIUM 3.6 MEQ/L (3.5-5.1); RED BLOOD COUNT 4.64 MIL/MM3 (4.00-5.30); RED CELL DISTRIBUTION WIDTH 19.1 % (11.6-17.2); WHITE BLOOD COUNT 10.8 TH/MM3 (4.0-11.0)
[2017-04-12 10:37] LABS: HEMO FLAGS AUTO DIFF
[2017-04-12 10:38] LABS: BICARBONATE 27.9 MEQ/L (21.0-32.0)
[2017-04-12 10:53] LABS: BANDS 10 % (0-6); METAMYELOCYTES 2 % (0-1); NEUTROPHIL # MANUAL DIFF 8.1 TH/MM3 (1.8-7.7); POLYS (SEG NEUTROPHILS) 63 % (16-70); WBC DIFF SAMPLE 100
[2017-04-12 10:55] LABS: ACANTHOCYTES OCC (NORMAL); OVALOCYTES 1+ (NORMAL); PLATELET ESTIMATE SMEAR NORMAL (NORMAL); PLATELET MORPHOLOGY NORMAL (NORMAL); ROULEAUX PRESENT (NORMAL)
[2017-04-12 10:56] LABS: SCAN/DIFF FINAL DIFF MANUAL
[2017-04-12 11:32] VITALS: BP 105/69; PULSE 69; RESP 14; O2SAT 98
== END 2017-04-12 11:59 | disposition home or self-care (01) ==
LOC: PHED 09:32
DX: R11.2 Nausea with vomiting, unspecified (principal); R19.7 Diarrhea, unspecified; E86.0 Dehydration; G89.29 Other chronic pain; K59.03 Drug induced constipation; T40.2X5A Adverse effect of other opioids, initial encounter; C78.00 Secondary malignant neoplasm of unspecified lung; C78.5 Secondary malignant neoplasm of large intestine and rectum; Z85.44 Personal history of malignant neoplasm of other female genital organs
CPT/HCPCS: 80048; 85007; 85027; 96361; 96374; 96375; 96376; 99284; J1170; J1642; J2405; J7030

== ENCOUNTER 2017-05-08 09:37 | Observation (INO) | payer MEDICARE, OTHER ==
[2017-05-08] VITALS (7 sets, daily range): BP systolic 100–120; BP diastolic 64–80; PULSE 62–88; RESP 16–25; TEMP 96.2–98.3; O2SAT 98–100
[~2017-05-08] VITALS: Ht 160 cm; Wt 76.2 kg
[~2017-05-08 09:37] MED LIST changes: -MIRA33504 PO; -MISC-163
[2017-05-08] MEDS ORDERED: SODIUM CHLOR 0.9% 1000 ML INJ 1,000 ML IV ONE (10:30)
[2017-05-08 10:48] LABS: AUTOMATED NEUTROPHIL # 18.3 TH/MM3 (1.8-7.7); BASOPHIL # 0.1 TH/MM3 (0-0.2); BASOPHIL % 0.3 % (0.0-2.0); HEMATOCRIT 30.4 % (35.0-46.0); LYMPH % 15.6 % (9.0-44.0); LYMPHOCYTE # 3.5 TH/MM3 (1.0-4.8); MEAN CELL VOLUME 79.4 FL (80.0-100.0); MEAN CORPUSCULAR HEMOGLOBIN 25.5 PG (27.0-34.0); MEAN CORPUSCULAR HGB CONC 32.1 % (32.0-36.0); MONO % 2.8 % (0.0-8.0); NEUT % 81.3 % (16.0-70.0); PLATELET COUNT 207 TH/MM3 (150-450); RED BLOOD COUNT 3.82 MIL/MM3 (4.00-5.30); RED CELL DISTRIBUTION WIDTH 20.6 % (11.6-17.2); WHITE BLOOD COUNT 22.5 TH/MM3 (4.0-11.0)
--- NOTE | 2017-05-08 10:54 | PD ---
HPI . 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 Started this morning when she woke up, denies any loss of consciousness. Describes that everything is spinning and that she feels very dizzy. It is constant and has not changed since this morning. She has it at rest but worse with movement or standing. No known alleviating factors. Denies any sick contacts. Patient reports she has had some dizziness in the past with chemo treatments but it is unusual for her to feel this way so far out from her last round of chemo. Last treatment was 1 week ago. Her most recent scan was 1 month ago and per patient showed no evidence of brain mets. Patient reports chills, feeling hot and cold, extreme fatigue, weakness, and myalgias. Reports diffuse bone pain from metastases which she rates as a 7/10. Patients denies any known fevers, nausea, vomiting, abdominal pain, dysuria, or diarrhea. PFSH Past Medical History Hx Anticoagulant Therapy: Yes (xarelto) Anxiety: Yes Depression: Yes Cancer: Yes (DX FALLOPIAN TUBE CA mets to lung, colon, lymph, bone. ) Cardiovascular Problems: No Chemotherapy: Yes Diabetes: No Diminished Hearing: No Endocrine: No Gastrointestinal Disorders: Yes (ABDOMINAL TUMOR) Genitourinary: No Hepatitis: No Hiatal Hernia: No Heparin Induced Thrombocytopen: No Hypertension: No Immune Disorder: No Implanted Vascular Access Dvce: Yes (power port right subclavian) Musculoskeletal: No Neurologic: Yes Psychiatric: Yes Reproductive: Yes (FALLOPIAN TUBE CANCER) Respiratory: Yes (BLOOD CLOT RIGHT LUNG) Migraines: No Radiation Therapy: No Sickle Cell Disease: No Thyroid Disease: No PNEUMOCCOCAL Vaccine (Year): 2 ?: Not : 0 Past Surgical History Abdominal Surgery: Yes (CANCER REMOVED FROM AROUND AORTA & BOWELS) Body Medical Devices: Infussa-port RIGHT CHEST WALL Genitourinary Surgery: Yes (BENIGN & malignant TUMORS REMOVED) Gynecologic Surgery: Yes (MYOMECTOMY) Hysterectomy: Yes Other Surgery: Yes (HYSTERECTOMY, TORN ROTATOR CUFFS, ) Social History Alcohol Use: No Tobacco Use: No (former) Substance Use: No Allergies-Medications (Allergen,Severity, Reaction): Coded Allergies: Adhesives (Verified Allergy, Intermediate, SKIN REACTION, 05/08/17) Doxil (Verified Allergy, Intermediate, Rash, 05/08/17) Reported Meds & Prescriptions Reported Meds & Active Scripts Active Walker with Front Wheels (Device) 1 Mis Mis 1 Ea .ROUTE DIRECTED Reported Xarelto (Rivaroxaban) 15 Mg Tab 20 Mg PO DAILY Metoclopramide (Metoclopramide HCl) 10 Mg Tab 10 Mg PO Q6HR Dexamethasone 4 Mg Tab 4 Mg PO DAILY Prochlorperazine Supp (Prochlorperazine) 25 Mg Supp 25 Mg RECTAL Q12H Methadone (Methadone HCl) 10 Mg Tab 20 Mg PO Q8HR Claritin (Loratadine) 10 Mg Cap 10 Mg PO DAILY Dilaudid (Hydromorphone HCl) 8 Mg Tab 8 Mg PO 5 TIMES A DAY Gabapentin 600 Mg Tab 600 Mg PO BID Marinol (Dronabinol) 5 Mg Cap 5 Mg PO BID Senokot (Sennosides) 8.6 Mg Tab 8.6 Mg PO 6 TIMES DAILY Xanax (Alprazolam) 1 Mg Tab 1 Mg PO 5 TIMES A DAY Review of Systems General / Constitutional: Positive: Chills, No: Fever HENT: Positive: Vertigo, No: Headaches Cardiovascular: No: Chest Pain or Discomfort, Tachycardia Respiratory: No: Shortness of Breath Gastrointestinal: No: Nausea, Vomiting, Diarrhea, Abdominal Pain Genitourinary: No: Dysuria Musculoskeletal: Positive: Myalgias, Weakness, Pain (bone pain - rib cage) Skin: Positive Alopecia, No Rash Neurologic: Positive: Weakness, Dizziness, Other (Forgetfulness ), No: Syncope , Focal Abnormalities, Headache, Slurred Speech, Seizures Endocrine: Positive: Heat Intolerance, Cold Intolerance Physical Exam Narrative GENERAL: awake and alert. In no acute distress. Very still and lethargic. SKIN: Warm and dry. HEAD: Atraumatic. Normocephalic. Alopecia. EYES: Pupils equal, round, and reactive to light. No scleral icterus. No injection or drainage. ENT: No nasal bleeding or discharge. Mucous membranes dry. NECK: Trachea midline. No JVD. Neck supple. CARDIOVASCULAR: Regular rate and rhythm. No murmurs. Strong peripheral pulses. RESPIRATORY: Good air movement throughout. Lungs clear to auscultation bilaterally. No wheezing. No accessory muscle use. GASTROINTESTINAL: Abdomen soft, non-tender, nondistended. MUSCULOSKELETAL: No obvious deformities. No clubbing. No cyanosis. No edema. NEUROLOGICAL: Awake and alert. No obvious cranial nerve deficits. Motor grossly within normal limits. Normal speech. PSYCHIATRIC: Appropriate mood and affect; insight and judgment normal. Data Data Last Documented VS Vital Signs Date Time Temp Pulse Resp B/P Pulse Ox O2 Delivery O2 Flow Rate FiO2 05/08/17 13:45 62 16 109/66 100 Room Air 05/08/17 09:40 98.3 Orders Complete Blood Count With Diff (05/08/17 10:23) Comprehensive Metabolic Panel (05/08/17 10:23) Urinalysis - C+S If Indicated (05/08/17 10:23) Blood Culture (05/08/17 10:23) Chest, Single Ap (05/08/17 10:23) Ondansetron Inj (Zofran Inj) (05/08/17 11:00) Ct Brain W/O Iv Contrast(Rout) (05/08/17 ) Sodium Chlor 0.9% 1000 Ml Inj (Ns 1000 M (05/08/17 11:00) Sodium Chlor 0.9% 1000 Ml Inj (Ns 1000 M (05/08/17 10:30) Morphine Inj (Morphine Inj) (05/08/17 11:00) Hydromorphone Pf Inj (Dilaudid Pf Inj) (05/08/17 11:00) Loratadine (Claritin) (05/08/17 11:30) Hydromorphone Pf Inj (Dilaudid Pf Inj) (05/08/17 13:30) Type And Screen (05/08/17 13:30) Red Blood Cells (Rbc) (05/08/17 13:30) Sodium Chlor 0.9% 250 Ml Inj (Ns 250 Ml (05/08/17 13:30) Place In Observation (05/08/17 ) Vital Signs (Adult) Q4H (05/08/17 13:50) Activity Oob With Assistance (05/08/17 13:50) Diet Regular Basic (05/08/17 Lunch) Sodium Chlor 0.9% 1000 Ml Inj (Ns 1000 M (05/08/17 13:50) Sodium Chloride 0.9% Flush (Ns Flush) (05/08/17 14:00) Sodium Chloride 0.9% Flush (Ns Flush) (05/08/17 21:00) Acetaminophen (Tylenol) (05/08/17 14:00) Ondansetron Inj (Zofran Inj) (05/08/17 14:00) Basic Metabolic Panel (Bmp) (05/09/17 06:00) Complete Blood Count With Diff (05/09/17 06:00) Scd Bilateral/Knee High SHANE.BID (05/08/17 13:50) Naloxone Inj (Narcan Inj) (05/08/17 14:00) Docusate Sodium-Senna (Chrissie-Colace) (05/08/17 21:00) Magnesium Hydroxide Liq (Milk Of Magnesi (05/08/17 14:00) Sennosides (Senokot) (05/08/17 14:00) Bisacodyl Supp (Dulcolax Supp) (05/08/17 14:00) Lactulose Liq (Lactulose Liq) (05/08/17 14:00) Magnesium (Mg) (05/08/17 14:06) Orthostatic Blood Pressure (05/08/17 14:06) Alprazolam (Xanax) (05/08/17 18:00) Dexamethasone (Decadron) (05/09/17 09:00) Dronabinol (Marinol) (05/08/17 21:00) Gabapentin (Neurontin) (05/08/17 21:00) Hydromorphone (Dilaudid) (05/08/17 18:00) Loratadine (Claritin) (05/09/17 09:00) Methadone (Dolophine) (05/08/17 22:00) Metoclopramide (Reglan) (05/08/17 18:00) Prochlorperazine Supp (Compazine Supp) (05/08/17 14:45) Rivaroxaban (Xarelto) (05/09/17 09:00) Admit Order (Ed Use Only) (05/08/17 14:38) Labs Laboratory Tests Test 05/08/17 05/08/1705/08/17 10:38 12:57 13:45 White Blood Count 22.5 TH/MM3 Red Blood Count 3.82 MIL/MM3 Hemoglobin 9.7 GM/DL Hematocrit 30.4 % Mean Corpuscular Volume 79.4 FL Mean Corpuscular Hemoglobin 25.5 PG Mean Corpuscular Hemoglobin 32.1 % Concent Red Cell Distribution Width 20.6 % Platelet Count 207 TH/MM3 Mean Platelet Volume 8.5 FL Neutrophils (%) (Auto) 81.3 % Lymphocytes (%) (Auto) 15.6 % Monocytes (%) (Auto) 2.8 % Eosinophils (%) (Auto) 0.0 % Basophils (%) (Auto) 0.3 % Neutrophils # (Auto) 18.3 TH/MM3 Lymphocytes # (Auto) 3.5 TH/MM3 Monocytes # (Auto) 0.6 TH/MM3 Eosinophils # (Auto) 0.0 TH/MM3 Basophils # (Auto) 0.1 TH/MM3 CBC Comment AUTO DIFF Differential Total Cells 100 Counted Neutrophils % (Manual) 63 % Band Neutrophils % 17 % Lymphocytes % 18 % Monocytes % 1 % Neutrophils # (Manual) 18.2 TH/MM3 Myelocytes 1 % Nucleated Red Blood Cells 1 /100 WBC Differential Comment FINAL DIFF MANUAL Toxic Granulation 2+ Platelet Estimate NORMAL Platelet Morphology Comment NORMAL Polychromasia 2.0 % Tear Drop Cells 1+ Ovalocytes 1+ Acanthocytes OCC Keratocytes OCC Sodium Level 139 MEQ/L Potassium Level 3.1 MEQ/L Chloride Level 103 MEQ/L Carbon Dioxide Level 30.3 MEQ/L Anion Gap 6 MEQ/L Blood Urea Nitrogen 14 MG/DL Creatinine 0.65 MG/DL Estimat Glomerular Filtration 119 ML/MIN Rate Random Glucose 96 MG/DL Calcium Level 8.0 MG/DL Total Bilirubin 0.1 MG/DL Aspartate Amino Transf 17 U/L (AST/SGOT) Alanine Aminotransferase 20 U/L (ALT/SGPT) Alkaline Phosphatase 130 U/L Total Protein 5.9 GM/DL Albumin 3.1 GM/DL Urine Color YELLOW Urine Turbidity CLEAR Urine pH 5.5 Urine Specific [place] 1.014 Urine Protein NEG mg/dL Urine Glucose (UA) NEG mg/dL Urine Ketones NEG mg/dL Urine Occult Blood NEG Urine Nitrite NEG Urine Bilirubin NEG Urine Urobilinogen LESS THAN 2.0 MG/DL Urine Leukocyte Esterase NEG Urine RBC 1 /hpf Urine WBC 1 /hpf Urine Squamous Epithelial 1 /hpf Cells Urine Bacteria RARE /hpf Urine Mucus FEW /lpf Microscopic Urinalysis Comment CULT NOT INDICATED Blood Type O POSITIVE Antibody Screen NEGATIVE Crossmatch Leukocyte-Reduced Red Blood Cells Blood Bank Comment MDM Medical Decision Making Medical Screen Exam Complete: Yes Emergency Medical Condition: Yes Differential Diagnosis Differentials include vertigo, dehydration, brain metastases, infection, anemia , hypoglycemia. Narrative Course Patient with stage 4 cancer with known metastases to lung, lymph nodes and bone presents complaining of dizziness and vertigo that started this morning. She is also reporting extreme fatigue and weakness. Her last chemo treatment was 1 week ago and prior to today she was feeling well. No known sick contacts. Per patient, her last scan was 1 month ago and showed no evidence of mets to her head. Given her history and new onset vertigo we will do both a sepsis workup and head CT. Imaging: Chest X-Ray 05/08/17 1023 Signed Impressions: Service Date/Time: Monday, May 08, 2017 10:34 - CONCLUSION: 1. No acute cardiopulmonary disease. Julio Carias MD Head CT 05/08/17 0000 Signed Impressions: Service Date/Time: Monday, May 08, 2017 11:39 - CONCLUSION: Normal examination for a patient of this age. No significant change has occurred. Frnaklyn Barclay MD Laboratory Tests: Test 05/08/17 05/08/17 10:38 12:57 White Blood Count 22.5 TH/MM3 (4.0-11.0) Red Blood Count 3.82 MIL/MM3 (4.00-5.30) Hemoglobin 9.7 GM/DL (11.6-15.3) Hematocrit 30.4 % (35.0-46.0) Mean Corpuscular Volume 79.4 FL (80.0-100.0) Mean Corpuscular Hemoglobin 25.5 PG (27.0-34.0) Mean Corpuscular Hemoglobin 32.1 % Concent (32.0-36.0) Red Cell Distribution Width 20.6 % (11.6-17.2) Platelet Count 207 TH/MM3 (150-450) Mean Platelet Volume 8.5 FL (7.0-11.0) Neutrophils (%) (Auto) 81.3 % (16.0-70.0) Lymphocytes (%) (Auto) 15.6 % (9.0-44.0) Monocytes (%) (Auto) 2.8 % (0.0-8.0) Eosinophils (%) (Auto) 0.0 % (0.0-4.0) Basophils (%) (Auto) 0.3 % (0.0-2.0) Neutrophils # (Auto) 18.3 TH/MM3 (1.8-7.7) Lymphocytes # (Auto) 3.5 TH/MM3 (1.0-4.8) Monocytes # (Auto) 0.6 TH/MM3 (0-0.9) Eosinophils # (Auto) 0.0 TH/MM3 (0-0.4) Basophils # (Auto) 0.1 TH/MM3 (0-0.2) CBC Comment AUTO DIFF Differential Total Cells 100 Counted Neutrophils % (Manual) 63 % (16-70) Band Neutrophils % 17 % (0-6) Lymphocytes % 18 % (9-44) Monocytes % 1 % (0-8) Neutrophils # (Manual) 18.2 TH/MM3 (1.8-7.7) Myelocytes 1 % (0-0) Nucleated Red Blood Cells 1 /100 WBC (0-0) Differential Comment FINAL DIFF MANUAL Toxic Granulation 2+ (NORMAL) Platelet Estimate NORMAL (NORMAL) Platelet Morphology Comment NORMAL (NORMAL) Polychromasia 2.0 % (0.0-1.9) Tear Drop Cells 1+ (NORMAL) Ovalocytes 1+ (NORMAL) Acanthocytes OCC (NORMAL) Keratocytes OCC (NORMAL) Sodium Level 139 MEQ/L (136-145) Potassium Level 3.1 MEQ/L (3.5-5.1) Chloride Level 103 MEQ/L (98-107) Carbon Dioxide Level 30.3 MEQ/L (21.0-32.0) Anion Gap 6 MEQ/L (5-15) Blood Urea Nitrogen 14 MG/DL (7-18) Creatinine 0.65 MG/DL (0.50-1.00) Estimat Glomerular Filtration 119 ML/MIN Rate (>89) Random Glucose 96 MG/DL (74-106) Calcium Level 8.0 MG/DL (8.5-10.1) Total Bilirubin 0.1 MG/DL (0.2-1.0) Aspartate Amino Transf 17 U/L (15-37) (AST/SGOT) Alanine Aminotransferase 20 U/L (10-53) (ALT/SGPT) Alkaline Phosphatase 130 U/L (45-117) Total Protein 5.9 GM/DL (6.4-8.2) Albumin 3.1 GM/DL (3.4-5.0) Urine Color YELLOW (YELLW/STRAW) Urine Turbidity CLEAR (CLEAR) Urine pH 5.5 (5.0-8.5) Urine Specific [place] 1.014 (1.002-1.035) Urine Protein NEG mg/dL (NEG-TRACE) Urine Glucose (UA) NEG mg/dL (NEG) Urine Ketones NEG mg/dL (NEG) Urine Occult Blood NEG (NEG) Urine Nitrite NEG (NEG) Urine Bilirubin NEG (NEG) Urine Urobilinogen LESS THAN 2.0 MG/DL (LESS THAN 2.0) Urine Leukocyte Esterase NEG (NEG) Urine RBC 1 /hpf (0-3) Urine WBC 1 /hpf (0-5) Urine Squamous Epithelial 1 /hpf (0-5) Cells Urine Bacteria RARE /hpf (NONE) Urine Mucus FEW /lpf (OCC) Microscopic Urinalysis Comment CULT NOT INDICATED Patient was found to be anemic which may be contributing to her fatigue and weakness. She was also mildly hypokalemic and appeared dehydrated. Will admit for blood transfusion, electrolyte and fluid replacement, and pain control. Diagnosis Primary Impression: Symptomatic anemia Additional Impressions: Dehydration hypokalemia stage 4 fallopian cancer Admitting Information Admitting Physician Requests: Observation Montez Clayton MD May 08, 2017 10:54
[2017-05-08 10:55] LABS: HEMO FLAGS AUTO DIFF
[2017-05-08] MEDS ORDERED: ONDANSETRON HCL 4 MG/2 ML VIAL IV ONE (11:00)
[2017-05-08] MEDS ORDERED: MORPHINE SULFATE 8 MG/ML INJ IV PUSH ONE (11:00)
[2017-05-08] MEDS ORDERED: HYDROmorphone HCL PF 1 MG/ML VIAL IVS ONE ×2 (11:00→13:30)
--- NOTE | 2017-05-08 11:01 | RADRPT ---
EXAM DATE/TIME: 05/08/2017 10:34 [facility] COMPARISON: CHEST SINGLE AP, March 22, 2017, 7:41. INDICATIONS : Patient complains of bone pain after a neulasta injection, dizziness and weakness. MEDICAL HISTORY : Ovarian cancer SURGICAL HISTORY : Infusaport ENCOUNTER: Initial ACUITY: 1 day PAIN SCORE: 7/10 LOCATION: Bilateral chest FINDINGS: There is a right IJ port in stable position. Lungs are slightly hypoaerated but are otherwise clear. Cardiomediastinal contours are stable. Bony thorax is intact. CONCLUSION: 1. No acute cardiopulmonary disease. Julio Carias MD on May 08, 2017 at 10:59 Board Certified Radiologist. This report was verified electronically.
[2017-05-08 11:07] LABS: ALT (GPT) 20 U/L (10-53); ANION GAP 6 MEQ/L (5-15); AST (GOT) 17 U/L (15-37); BICARBONATE 30.3 MEQ/L (21.0-32.0); BLOOD UREA NITROGEN 14 MG/DL (7-18); CHLORIDE 103 MEQ/L (98-107); GLOMERULAR FILTRATION RATE 119 ML/MIN (>89); POTASSIUM 3.1 MEQ/L (3.5-5.1); SODIUM (NA) 139 MEQ/L (136-145)
[2017-05-08 11:08] LABS: ALKALINE PHOSPHATASE 130 U/L (45-117); TOTAL BILIRUBIN ADULT 0.1 MG/DL (0.2-1.0)
[2017-05-08] MEDS ORDERED: LORATADINE 10 MG TAB PO ONE (11:30)
--- NOTE | 2017-05-08 11:51 | RADRPT ---
EXAM DATE/TIME: 05/08/2017 11:39 [facility] COMPARISON: CT BRAIN W/O CONTRAST, September 12, 2015, 6:15. INDICATIONS : Dizziness, vertigo. Agressive chemotherapy for stage four cancer. RADIATION DOSE: 34.36 CTDIvol (mGy) MEDICAL HISTORY : Carcinoma, not otherwise specified. Metastatic, colon. Metastatic, lung.Primary fallopian tube carcin stephanie SURGICAL HISTORY : Cancer removed from aorta and bowels ENCOUNTER: Initial ACUITY: 1 day PAIN SCALE: 10/10 LOCATION: cranial TECHNIQUE: Multiple contiguous axial images were obtained of the head. Using automated exposure control and adj ustment of the mA and/or kV according to patient size, radiation dose was kept as low as reasonably a chievable to obtain optimal diagnostic quality images. DICOM format image data is available electro nically for review and comparison. FINDINGS: CEREBRUM: The ventricles are normal for age. No evidence of midline shift, mass lesion, hemorrhage or acute in farction. No extra-axial fluid collections are seen. POSTERIOR FOSSA: The cerebellum and brainstem are intact. The 4th ventricle is midline. The cerebellopontine angle i s unremarkable. EXTRACRANIAL: The visualized portion of the orbits is intact. SKULL: The calvaria is intact. No evidence of skull fracture. CONCLUSION: Normal examination for a patient of this age. No significant change has occurred. Franklyn Barclay MD on May 08, 2017 at 11:48 Board Certified Radiologist. This report was verified electronically.
[2017-05-08 11:52] LABS: BANDS 17 % (0-6); CORRECTED NUCLEATED RBC 1 /100 WBC (0-0); MYELOCYTES 1 % (0-0); NEUTROPHIL # MANUAL DIFF 18.2 TH/MM3 (1.8-7.7); POLYS (SEG NEUTROPHILS) 63 % (16-70); TOXIC GRANULATION 2+ (NORMAL); WBC DIFF SAMPLE 100
[2017-05-08 11:54] LABS: ACANTHOCYTES OCC (NORMAL); KERATOCYTES OCC (NORMAL); OVALOCYTES 1+ (NORMAL)
[2017-05-08 11:55] LABS: SCAN/DIFF FINAL DIFF MANUAL; TEARDROP RBCS 1+ (NORMAL)
[2017-05-08 11:56] LABS: PLATELET ESTIMATE SMEAR NORMAL (NORMAL); PLATELET MORPHOLOGY NORMAL (NORMAL)
[2017-05-08] MEDS: SODIUM CHLOR 0.9% 1000 ML INJ 1,000 ML IV SCH ×4 (12:10→20:30)
[2017-05-08 13:12] LABS: BACTERIA, URINE RARE /hpf; BLOOD, URINE NEG (NEG); COMMENT (UR) CULT NOT INDICATED; CULTURE IF INDICATED CULT NOT INDICATED; GLUCOSE,URINE NEG (NEG); KETONE, URINE NEG (NEG); MUCUS URINE FEW /lpf (OCC); NITRITE,URINE NEG (NEG); PH, URINE 5.5 (5.0-8.5); SQUAMOUS EPITHELIAL CELL URINE 1 /hpf (0-5); URINE COLOR YELLOW (YELLW/STRAW)
[2017-05-08] MEDS ORDERED: SODIUM CHLOR 0.9% 250 ML INJ 250 ML IV ONE (13:30)
--- NOTE | 2017-05-08 13:53 | HHI.HP ---
[facility] Fransico Betancourt MD Admission Diagnosis Diagnoses: Chief Complaint: Dizziness. Travel History International Travel<30 Days: No Contact w/Intl Traveler <30 Da: No Traveled to Known Affected Are: No History of Present Illness Ms. 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 Denies any lost of consciousness and her dizziness started this morning when she woke up. She feels as though the room is spinning , worse with movement and standing. Her symptoms have been persistent throughout the day. She follows up at [facility] where she received treatment about a week ago. About a month ago, imaging study did not show any brain metastasis. Patient denies any chest pain, shortness of breath, fever, chills. She also denies any nausea, vomiting, abdominal pain. No changes in bowel or bladder habits. She has not been eating, drinking well in the recent days. She has an appointment with [facility] on 05/11/2017. Review of Systems Except as stated in HPI: all other systems reviewed are Neg Past Family Social History Past Medical History Fallopian tube cancer mets to lung, colon, lymph node, bone) Right sided pulmonary embolism Past Surgical History Hysterectomy, torn rotator cuff surgery, myomectomy, cancer removed from around aorta and bowels. Reported Medications Walker with Front Wheels (Device) 1 Mis Mis 1 Ea .ROUTE DIRECTED Xarelto (Rivaroxaban) 15 Mg Tab 20 Mg PO DAILY Metoclopramide (Metoclopramide HCl) 10 Mg Tab 10 Mg PO Q6HR Dexamethasone 4 Mg Tab 4 Mg PO DAILY Prochlorperazine Supp (Prochlorperazine) 25 Mg Supp 25 Mg RECTAL Q12H Methadone (Methadone HCl) 10 Mg Tab 20 Mg PO Q8HR Claritin (Loratadine) 10 Mg Cap 10 Mg PO DAILY Dilaudid (Hydromorphone HCl) 8 Mg Tab 8 Mg PO 5 TIMES A DAY Gabapentin 600 Mg Tab 600 Mg PO BID Marinol (Dronabinol) 5 Mg Cap 5 Mg PO BID Senokot (Sennosides) 8.6 Mg Tab 8.6 Mg PO 6 TIMES DAILY Xanax (Alprazolam) 1 Mg Tab 1 Mg PO 5 TIMES A DAY Allergies: Coded Allergies: Adhesives (Verified Allergy, Intermediate, SKIN REACTION, 05/08/17) Doxil (Verified Allergy, Intermediate, Rash, 05/08/17) Family History Maternal grandparents - history of cancer. Mother - heart disease, diabetes. Social History Patient denies using alcohol, tobacco, illicit drugs. Physical Exam Vital Signs Vital Signs Date Time Temp Pulse Resp B/P Pulse Ox O2 Delivery O2 Flow Rate FiO2 05/08/17 13:45 62 16 109/66 100 Room Air 05/08/17 09:40 98.3 78 24 120/80 98 Room Air Physical Exam GENERAL: This is a well-nourished, well-developed patient, in no apparent distress. SKIN: No rashes, ecchymoses or lesions. Warm and dry. HEAD: Atraumatic. Normocephalic. No temporal or scalp tenderness. EYES: Pupils equal round and reactive. No injection or drainage. ENT: Nose without bleeding, purulent drainage or septal hematoma. Airway patent. NECK: Trachea midline. No lymphadenopathy. Supple, nontender, no meningeal signs. CARDIOVASCULAR: Regular rate and rhythm without murmurs, gallops, or rubs. No JVD. RESPIRATORY: Clear to auscultation. Breath sounds equal bilaterally. No wheezes , rales, or rhonchi. GASTROINTESTINAL: Abdomen soft, non-tender, nondistended. No guarding. MUSCULOSKELETAL: Extremities without clubbing, cyanosis, or edema. NEUROLOGICAL: Awake and alert. Cranial nerves II through XII intact. No focal neurological deficits. Normal speech. Laboratory Laboratory Tests Test 05/08/17 05/08/17 10:38 12:57 White Blood Count 22.5 Red Blood Count 3.82 Hemoglobin 9.7 Hematocrit 30.4 Mean Corpuscular Volume 79.4 Mean Corpuscular Hemoglobin 25.5 Mean Corpuscular Hemoglobin 32.1 Concent Red Cell Distribution Width 20.6 Platelet Count 207 Mean Platelet Volume 8.5 Neutrophils (%) (Auto) 81.3 Lymphocytes (%) (Auto) 15.6 Monocytes (%) (Auto) 2.8 Eosinophils (%) (Auto) 0.0 Basophils (%) (Auto) 0.3 Neutrophils # (Auto) 18.3 Lymphocytes # (Auto) 3.5 Monocytes # (Auto) 0.6 Eosinophils # (Auto) 0.0 Basophils # (Auto) 0.1 CBC Comment AUTO DIFF Differential Total Cells 100 Counted Neutrophils % (Manual) 63 Band Neutrophils % 17 Lymphocytes % 18 Monocytes % 1 Neutrophils # (Manual) 18.2 Myelocytes 1 Nucleated Red Blood Cells 1 Differential Comment FINAL DIFF MANUAL Toxic Granulation 2+ Platelet Estimate NORMAL Platelet Morphology Comment NORMAL Polychromasia 2.0 Tear Drop Cells 1+ Ovalocytes 1+ Acanthocytes OCC Keratocytes OCC Sodium Level 139 Potassium Level 3.1 Chloride Level 103 Carbon Dioxide Level 30.3 Anion Gap 6 Blood Urea Nitrogen 14 Creatinine 0.65 Estimat Glomerular Filtration 119 Rate Random Glucose 96 Calcium Level 8.0 Total Bilirubin 0.1 Aspartate Amino Transf 17 (AST/SGOT) Alanine Aminotransferase 20 (ALT/SGPT) Alkaline Phosphatase 130 Total Protein 5.9 Albumin 3.1 Urine Color YELLOW Urine Turbidity CLEAR Urine pH 5.5 Urine Specific [place] 1.014 Urine Protein NEG Urine Glucose (UA) NEG Urine Ketones NEG Urine Occult Blood NEG Urine Nitrite NEG Urine Bilirubin NEG Urine Urobilinogen LESS THAN 2.0 Urine Leukocyte Esterase NEG Urine RBC 1 Urine WBC 1 Urine Squamous Epithelial 1 Cells Urine Bacteria RARE Urine Mucus FEW Microscopic Urinalysis Comment CULT NOT INDICATED Date/Time Procedure Status Source Growth 05/08/17 10:45 Aerobic Blood Culture Received Blood Peripheral Pending 05/08/17 10:45 Anaerobic Blood Culture Received Blood Peripheral Pending Result Diagram: 05/08/17 1038 05/08/17 1038 Imaging Last Impressions Chest X-Ray 05/08/17 1023 Signed Impressions: Service Date/Time: Monday, May 08, 2017 10:34 - CONCLUSION: 1. No acute cardiopulmonary disease. Julio Carias MD Head CT 05/08/17 0000 Signed Impressions: Service Date/Time: Monday, May 08, 2017 11:39 - CONCLUSION: Normal examination for a patient of this age. No significant change has occurred. Franklyn Barclay MD Assessment and Plan Problem List: (1) Dizziness ICD Code: R42 Status: Acute (2) Dehydration ICD Code: E86.0 Status: Acute (3) Fallopian tube carcinoma ICD Code: C57.00 Status: Acute (4) Hypokalemia ICD Code: E87.6 Status: Acute Assessment and Plan Ms. Wheeler is a pleasant 46 year old female with a history of stage IV fallopian tube cancer, followed by [facility], presents to the ED today due to dizziness that started this morning. She denies any nausea, vomiting, diarrhea, fever, chills. Denies any chest pain, SOB, cough. - Dizziness - Probable dehydration - Dizziness may be due to poor oral intake, dehydration - CT head, CXR images reviewed by me. No acute findings. - Will obtain orthostatic vitals. - Start NS @150cc/hour. - Regular diet. - Leukocytosis - WBC 22.5K with neutrophil 81.3%. Could be partly due to dehydration. Will monitor. No sign of active infection. - History of stage IV fallopian tube cancer - Patient has an appt at [facility] on 05/11/2017. - Apparently a month ago, imaging study did not show any evidence of brain mets. - Start home medications including pain meds - Methadone, Dilaudid. - History of pulmonary embolism - Continue Xarelto. Full code. Xarelto. Adebayo Ryan DO May 08, 2017 13:53
[2017-05-08] MEDS ORDERED: ACETAMINOPHEN 325 MG TAB PO PRN (14:00)
[2017-05-08] MEDS ORDERED: MAGNESIUM HYDROXIDE SUSP 30 ML CUP PO PRN (14:00)
[2017-05-08] MEDS ORDERED: SODIUM CHLORIDE 0.9% FLUSH 10 ML FLUSH IV FLUSH PRN (14:00)
[2017-05-08] MEDS ORDERED: BISACODYL 10 MG SUPP RECTAL PRN (14:00)
[2017-05-08] MEDS ORDERED: LACTULOSE SYRUP 20 GM/30 ML CUP PO PRN (14:00)
[2017-05-08] MEDS ORDERED: NALOXONE HCL 0.4 MG/ML AMP IV PRN (14:00)
[2017-05-08] MEDS ORDERED: SENNOSIDES 8.6 MG TAB PO PRN (14:00)
[2017-05-08] MEDS ORDERED: PROCHLORPERAZINE 25 MG SUPP RECTAL SCH (14:45)
[2017-05-08] MEDS: ALPRAZolam 1 MG TAB PO SCH ×2 (17:06→21:21)
[2017-05-08] MEDS ORDERED: METOCLOPRAMIDE HCL 10 MG TAB PO SCH (18:00)
[2017-05-08] MEDS ORDERED: HYDROmorphone HCL 4 MG TAB PO SCH (18:00)
[2017-05-08] MEDS: HYDROmorphone HCL 4 MG TAB PO PRN (18:40)
[2017-05-08] MEDS: DRONABINOL 5 MG CAP PO SCH (21:00)
[2017-05-08] MEDS: HYDROmorphone HCL PF 1 MG/ML VIAL IV PUSH PRN (21:17)
[2017-05-08] MEDS: ONDANSETRON HCL 4 MG/2 ML VIAL IVP PRN (21:17)
[2017-05-08] MEDS: DOCUSATE SODIUM 50 MG/SENNA 8.6 MG TAB PO SCH (21:20)
[2017-05-08] MEDS: METOCLOPRAMIDE HCL 10 MG TAB PO PRN (21:21)
[2017-05-08] MEDS: GABAPENTIN 300 MG CAP PO SCH (21:21)
[2017-05-08] MEDS: METHADONE HCL 10 MG TAB PO SCH (21:21)
[2017-05-08] MEDS: SODIUM CHLORIDE 0.9% FLUSH 10 ML FLUSH IV FLUSH SCH (21:22)
[2017-05-09] VITALS: BP 100/69; PULSE 93; RESP 17; TEMP 96.3; O2SAT 100
[2017-05-09] MEDS: HYDROmorphone HCL PF 1 MG/ML VIAL IV PUSH PRN ×2 (01:29→08:37)
[2017-05-09] MEDS ORDERED: PROCHLORPERAZINE 25 MG SUPP RECTAL PRN (02:45)
[2017-05-09] MEDS: SODIUM CHLOR 0.9% 1000 ML INJ 1,000 ML IV SCH ×3 (03:10→18:47)
[2017-05-09 04:00] VITALS: BP 130/69; PULSE 101; RESP 18; TEMP 96.9; O2SAT 100
[2017-05-09] MEDS: ALPRAZolam 1 MG TAB PO SCH ×5 (04:00→21:46)
[2017-05-09] MEDS: METOCLOPRAMIDE HCL 10 MG TAB PO PRN (04:00)
[2017-05-09] MEDS: METHADONE HCL 10 MG TAB PO SCH ×3 (04:01→21:46)
[2017-05-09 05:06] LABS: AUTOMATED NEUTROPHIL # 16.6 TH/MM3 (1.8-7.7); BASOPHIL % 0.2 % (0.0-2.0); HEMATOCRIT 29.2 % (35.0-46.0); LYMPH % 16.5 % (9.0-44.0); LYMPHOCYTE # 3.4 TH/MM3 (1.0-4.8); MEAN CELL VOLUME 81.8 FL (80.0-100.0); MEAN CORPUSCULAR HGB CONC 30.5 % (32.0-36.0); NEUT % 80.3 % (16.0-70.0); PLATELET COUNT 157 TH/MM3 (150-450); RED BLOOD COUNT 3.58 MIL/MM3 (4.00-5.30); RED CELL DISTRIBUTION WIDTH 21.1 % (11.6-17.2); WHITE BLOOD COUNT 20.6 TH/MM3 (4.0-11.0)
[2017-05-09 05:15] LABS: HEMO FLAGS AUTO DIFF
[2017-05-09 05:37] LABS: BICARBONATE 26.6 MEQ/L (21.0-32.0); POTASSIUM 3.7 MEQ/L (3.5-5.1)
[2017-05-09 07:03] LABS: BASOPHILS 1 % (0-2); CORRECTED NUCLEATED RBC 3 /100 WBC (0-0); NEUTROPHIL # MANUAL DIFF 16.5 TH/MM3 (1.8-7.7); POLYS (SEG NEUTROPHILS) 80 % (16-70); WBC DIFF SAMPLE 100
[2017-05-09 07:04] LABS: PLATELET ESTIMATE SMEAR NORMAL (NORMAL); PLATELET MORPHOLOGY NORMAL (NORMAL); SCAN/DIFF FINAL DIFF MANUAL; TEARDROP RBCS 1+ (NORMAL)
[2017-05-09 07:50] VITALS: BP 110/69; PULSE 85; RESP 20; TEMP 96; O2SAT 98
[2017-05-09] MEDS: ONDANSETRON HCL 4 MG/2 ML VIAL IVP PRN ×2 (08:36→14:44)
[2017-05-09] MEDS: DEXAMETHASONE 4 MG TAB PO SCH (08:37)
[2017-05-09] MEDS: GABAPENTIN 300 MG CAP PO SCH ×2 (08:37→20:13)
[2017-05-09] MEDS: SODIUM CHLORIDE 0.9% FLUSH 10 ML FLUSH IV FLUSH SCH ×2 (08:37→20:13)
[2017-05-09] MEDS: DOCUSATE SODIUM 50 MG/SENNA 8.6 MG TAB PO SCH ×2 (08:38→20:13)
[2017-05-09] MEDS: RIVAROXABAN 20 MG TAB PO SCH (08:39)
[2017-05-09] MEDS: LORATADINE 10 MG TAB PO SCH (08:39)
[2017-05-09] MEDS: DRONABINOL 5 MG CAP PO SCH ×2 (08:39→20:13)
[2017-05-09] MEDS: MAGNESIUM SULFATE 1 GM PREMIX 100 ML IV SCH ×2 (08:57→10:18)
--- NOTE | 2017-05-09 09:10 | HHI.PR ---
Subjective Remarks Follow up for nausea, vomiting and dizziness in a patient with fallopian tube cancer. Patient is doing well. She feels much better. No nausea, vomiting. Ambulating well without any dizziness. No fever, chills. She has an appointment at [facility] on Thursday05/11/2017. Objective Vitals Vital Signs Date Time Temp Pulse Resp B/P Pulse Ox O2 Delivery O2 Flow Rate FiO2 05/09/17 07:50 96.0 85 20 110/69 98 05/09/17 05:15 16 05/09/17 04:00 96.9 101 18 130/69 100 05/09/17 02:16 16 05/09/17 00:00 96.3 93 17 100/69 100 05/08/17 20:00 96.2 88 18 100/64 100 05/08/17 18:36 86 109/64 05/08/17 17:00 97.0 20 100 05/08/17 16:56 82 104/74 108/74 109/74 05/08/17 15:33 78 25 109/66 100 Room Air 05/08/17 13:45 62 16 109/66 100 Room Air 05/08/17 09:40 98.3 78 24 120/80 98 Room Air I/O 05/08/17 05/08/17 05/08/17 05/09/17 05/09/17 05/09/17 07:00 15:00 23:00 07:00 15:00 23:00 Intake Total 480 ml 240 ml Output Total 400 ml Balance 480 ml -160 ml Intake Oral 480 ml 240 ml Output Urine Total 400 ml # Voids 1 2 Result Diagram: 05/09/17 0411 05/09/17 0411 Imaging Last Impressions Chest X-Ray 05/08/17 1023 Signed Impressions: Service Date/Time: Monday, May 08, 2017 10:34 - CONCLUSION: 1. No acute cardiopulmonary disease. Julio Carias MD Head CT 05/08/17 0000 Signed Impressions: Service Date/Time: Monday, May 08, 2017 11:39 - CONCLUSION: Normal examination for a patient of this age. No significant change has occurred. Franklyn Barclay MD Objective Remarks GENERAL: AOX3, NAD. SKIN: Warm and dry. HEAD: Normocephalic. EYES: No scleral icterus. No injection or drainage. NECK: Supple, trachea midline. No JVD or lymphadenopathy. CARDIOVASCULAR: Regular rate and rhythm without murmurs, gallops, or rubs. RESPIRATORY: Breath sounds equal bilaterally. No accessory muscle use. GASTROINTESTINAL: Abdomen soft, non-tender, nondistended. MUSCULOSKELETAL: No cyanosis, or edema. BACK: Nontender without obvious deformity. No CVA tenderness. Procedures None. A/P Problem List: (1) Dizziness ICD Code: R42 Status: Acute (2) Dehydration ICD Code: E86.0 Status: Acute (3) Fallopian tube carcinoma ICD Code: C57.00 Status: Acute (4) Hypokalemia ICD Code: E87.6 Status: Acute Assessment and Plan Ms. Wheeler is a pleasant 46 year old female with a history of stage IV fallopian tube cancer, followed by [facility] center, presents to the ED today due to dizziness that started this morning. She denies any nausea, vomiting, diarrhea, fever, chills. Denies any chest pain, SOB, cough. - Dizziness - Probable dehydration - Dizziness may be due to poor oral intake, dehydration - Dizziness much improved.She is able to ambulate in the room without any dizziness. Tolerating diet well. - CT head, CXR images reviewed by me on 05/08/2017. No acute findings. - orthostatic blood pressures were unremarkable. - Continue NS - reduced rate 100 cc per hour. - Regular diet. - Leukocytosis - WBC 22.5K with neutrophil 81.3%. WBC today 20.6K. No sign of active infection. - History of stage IV fallopian tube cancer - Patient has an appt at [facility] on 05/11/2017. - Apparently a month ago, imaging study did not show any evidence of brain mets. - Continue home medications including pain meds - Methadone, Dilaudid. - History of pulmonary embolism - Continue Xarelto. Full code. Sharrelto. Adebayo Ryan DO May 09, 2017 9:10 am
[2017-05-09 11:50] VITALS: BP 110/66; PULSE 111; RESP 20; TEMP 97.1; O2SAT 98
[2017-05-09 15:30] VITALS: BP 110/66; PULSE 107; RESP 20; TEMP 98.4; O2SAT 100
[2017-05-09] MEDS: diphenhydrAMINE HCL 25 MG CAP PO PRN (16:53)
[2017-05-09] MEDS: HYDROmorphone HCL 4 MG TAB PO PRN (16:55)
[2017-05-09 20:00] VITALS: BP 126/66; PULSE 66; RESP 16; TEMP 98.4; O2SAT 95
[2017-05-10] VITALS: BP 102/70; PULSE 105; RESP 16; TEMP 96.9; O2SAT 97
[2017-05-10] MEDS: HYDROmorphone HCL 4 MG TAB PO PRN ×2 (03:59→09:22)
[2017-05-10 04:00] VITALS: BP 124/72; PULSE 99; RESP 16; TEMP 97.4; O2SAT 97
[2017-05-10] MEDS: SODIUM CHLOR 0.9% 1000 ML INJ 1,000 ML IV SCH (04:00)
[2017-05-10] MEDS: diphenhydrAMINE HCL 25 MG CAP PO PRN (04:00)
[2017-05-10] MEDS: ALPRAZolam 1 MG TAB PO SCH ×3 (05:48→13:36)
[2017-05-10] MEDS: METHADONE HCL 10 MG TAB PO SCH ×2 (05:48→13:36)
[2017-05-10 08:00] VITALS: BP 115/62; PULSE 117; RESP 21; TEMP 97.5; O2SAT 93
[2017-05-10] MEDS: SODIUM CHLORIDE 0.9% FLUSH 10 ML FLUSH IV FLUSH SCH (08:12)
[2017-05-10] MEDS: DRONABINOL 5 MG CAP PO SCH (09:22)
[2017-05-10] MEDS: LORATADINE 10 MG TAB PO SCH (09:22)
[2017-05-10] MEDS: DOCUSATE SODIUM 50 MG/SENNA 8.6 MG TAB PO SCH (09:23)
[2017-05-10] MEDS: RIVAROXABAN 20 MG TAB PO SCH (09:23)
[2017-05-10] MEDS: GABAPENTIN 300 MG CAP PO SCH (09:23)
[2017-05-10] MEDS: DEXAMETHASONE 4 MG TAB PO SCH (09:23)
--- NOTE | 2017-05-10 09:27 | HHI.PR ---
Subjective Remarks Follow up for nausea, vomiting and dizziness in a patient with fallopian tube cancer. Patient is complaining of dizziness and some nausea this morning. Did not have vomiting. No fever, chills. Objective Vitals Vital Signs Date Time Temp Pulse Resp B/P Pulse Ox O2 Delivery O2 Flow Rate FiO2 05/10/17 08:00 97.5 117 21 115/62 93 05/10/17 06:48 20 05/10/17 04:59 20 05/10/17 04:00 97.4 99 16 124/72 97 05/10/17 00:00 96.9 105 16 102/70 97 05/09/17 20:00 98.4 66 16 126/66 95 05/09/17 15:30 98.4 107 20 110/66 100 05/09/17 11:50 97.1 111 20 110/66 98 I/O 05/09/17 05/09/17 05/09/17 05/10/17 05/10/17 05/10/17 07:00 15:00 23:00 07:00 15:00 23:00 Intake Total 240 ml 967 ml 480 ml 1273 ml Output Total 400 ml 300 ml 450 ml Balance -160 ml 967 ml 180 ml 823 ml Intake Oral 240 ml 240 ml 480 ml IV Total 727 ml 1273 ml Output Urine Total 400 ml 300 ml 450 ml # Voids 2 1 # Bowel Movements 0 Result Diagram: 05/09/17 0411 05/09/17 0411 Imaging Last Impressions Chest X-Ray 05/08/17 1023 Signed Impressions: Service Date/Time: Monday, May 08, 2017 10:34 - CONCLUSION: 1. No acute cardiopulmonary disease. Julio Carias MD Head CT 05/08/17 0000 Signed Impressions: Service Date/Time: Monday, May 08, 2017 11:39 - CONCLUSION: Normal examination for a patient of this age. No significant change has occurred. Franklyn Barclay MD Objective Remarks GENERAL: AOX3, NAD. SKIN: Warm and dry. HEAD: Normocephalic. EYES: No scleral icterus. No injection or drainage. NECK: Supple, trachea midline. No JVD or lymphadenopathy. CARDIOVASCULAR: Regular rate and rhythm without murmurs, gallops, or rubs. RESPIRATORY: Breath sounds equal bilaterally. No accessory muscle use. GASTROINTESTINAL: Abdomen soft, non-tender, nondistended. MUSCULOSKELETAL: No cyanosis, or edema. BACK: Nontender without obvious deformity. No CVA tenderness. Procedures None. A/P Problem List: (1) Dizziness ICD Code: R42 Status: Acute (2) Dehydration ICD Code: E86.0 Status: Acute (3) Fallopian tube carcinoma ICD Code: C57.00 Status: Acute (4) Hypokalemia ICD Code: E87.6 Status: Acute Assessment and Plan Ms. Wheeler is a pleasant 46 year old female with a history of stage IV fallopian tube cancer, followed by [facility], presents to the ED today due to dizziness that started this morning. She denies any nausea, vomiting, diarrhea, fever, chills. Denies any chest pain, SOB, cough. - Dizziness - Probable dehydration - Dizziness may be due to poor oral intake, dehydration - Dizziness much improved.She is able to ambulate in the room without any dizziness. Tolerating diet well. - CT head, CXR images reviewed by me on 05/08/2017. No acute findings. - orthostatic blood pressures were unremarkable. - Continue NS - increase fluid. I checked with patient later again, she feels somewhat better. We will check on her this PM. If she feels better, she can be discharged. - Regular diet. - Leukocytosis - WBC 22.5K with neutrophil 81.3%. WBC today 20.6K. No sign of active infection. - History of stage IV fallopian tube cancer - Patient has an appt at [facility] on 05/11/2017. - Apparently a month ago, imaging study did not show any evidence of brain mets. - Continue home medications including pain meds - Methadone, Dilaudid. - History of pulmonary embolism - Continue Xarelto. Full code. Xarelto. Adebayo Ryan DO May 10, 2017 9:26 am
[2017-05-10 12:00] VITALS: BP 121/85; PULSE 116; RESP 21; TEMP 97.2; O2SAT 93
[2017-05-10] MEDS ORDERED: DILA8TAB4 PO (14:19)
[2017-05-10] MEDS ORDERED: ZOFR4TAB3 SL (14:19)
--- NOTE | 2017-05-10 14:22 | HHI.DS ---
Discharge Summary Admission Date May 08, 2017 at 3:22 pm Discharge Date: May 10, 2017 Admitting Diagnosis (1) Dizziness ICD Code: R42 Diagnosis: Principal (2) Dehydration ICD Code: E86.0 Diagnosis: Principal (3) Fallopian tube carcinoma ICD Code: C57.00 Diagnosis: Principal (4) Hypokalemia ICD Code: E87.6 Diagnosis: Principal Procedures None. Brief History - From Admission Ms. 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 Denies any lost of consciousness and her dizziness started this morning when she woke up. She feels as though the room is spinning , worse with movement and standing. Her symptoms have been persistent throughout the day. She follows up at [facility] where she received treatment about a week ago. About a month ago, imaging study did not show any brain metastasis. Patient denies any chest pain, shortness of breath, fever, chills. She also denies any nausea, vomiting, abdominal pain. No changes in bowel or bladder habits. She has not been eating, drinking well in the recent days. She has an appointment with [facility] [place] on 05/11/2017. CBC/BMP: 05/09/17 0411 05/09/17 0411 Significant Findings Laboratory Tests Test 05/08/17 05/08/17 05/09/17 10:38 12:57 04:11 White Blood Count 22.5 TH/MM3 20.6 TH/MM3 (4.0-11.0) (4.0-11.0) Red Blood Count 3.82 MIL/MM3 3.58 MIL/MM3 (4.00-5.30) (4.00-5.30) Hemoglobin 9.7 GM/DL 8.9 GM/DL (11.6-15.3) (11.6-15.3) Hematocrit 30.4 % 29.2 % (35.0-46.0) (35.0-46.0) Mean Corpuscular Volume 79.4 FL (80.0-100.0) Mean Corpuscular Hemoglobin 25.5 PG 25.0 PG (27.0-34.0) (27.0-34.0) Red Cell Distribution Width 20.6 % 21.1 % (11.6-17.2) (11.6-17.2) Neutrophils (%) (Auto) 81.3 % 80.3 % (16.0-70.0) (16.0-70.0) Neutrophils # (Auto) 18.3 TH/MM3 16.6 TH/MM3 (1.8-7.7) (1.8-7.7) Band Neutrophils % 17 % (0-6) Neutrophils # (Manual) 18.2 TH/MM3 16.5 TH/MM3 (1.8-7.7) (1.8-7.7) Myelocytes 1 % (0-0) Nucleated Red Blood Cells 1 /100 WBC 3 /100 WBC (0-0) (0-0) Toxic Granulation 2+ (NORMAL) Polychromasia 2.0 % (0.0-1.9) Tear Drop Cells 1+ (NORMAL) 1+ (NORMAL) Ovalocytes 1+ (NORMAL) Acanthocytes OCC (NORMAL) Keratocytes OCC (NORMAL) Potassium Level 3.1 MEQ/L (3.5-5.1) Calcium Level 8.0 MG/DL 7.7 MG/DL (8.5-10.1) (8.5-10.1) Magnesium Level 1.3 MG/DL (1.5-2.5) Total Bilirubin 0.1 MG/DL (0.2-1.0) Alkaline Phosphatase 130 U/L (45-117) Total Protein 5.9 GM/DL (6.4-8.2) Albumin 3.1 GM/DL (3.4-5.0) Urine Bacteria RARE /hpf (NONE) Urine Mucus FEW /lpf (OCC) Mean Corpuscular Hemoglobin 30.5 % Concent (32.0-36.0) Neutrophils % (Manual) 80 % (16-70) Chloride Level 108 MEQ/L (98-107) Imaging Last Impressions Chest X-Ray 05/08/17 1023 Signed Impressions: Service Date/Time: Monday, May 08, 2017 10:34 - CONCLUSION: 1. No acute cardiopulmonary disease. Julio Carias MD Head CT 05/08/17 0000 Signed Impressions: Service Date/Time: Monday, May 08, 2017 11:39 - CONCLUSION: Normal examination for a patient of this age. No significant change has occurred. Franklyn Barclay MD PE at Discharge GENERAL: AOX3, NAD. SKIN: Warm and dry. HEAD: Normocephalic. EYES: No scleral icterus. No injection or drainage. NECK: Supple, trachea midline. No JVD or lymphadenopathy. CARDIOVASCULAR: Regular rate and rhythm without murmurs, gallops, or rubs. RESPIRATORY: Breath sounds equal bilaterally. No accessory muscle use. GASTROINTESTINAL: Abdomen soft, non-tender, nondistended. MUSCULOSKELETAL: No cyanosis, or edema. BACK: Nontender without obvious deformity. No CVA tenderness. Pt update on day of discharge Patient is doing better this afternoon. Tolerating diet well. No vomiting. Patient wants to go home. She has an appointment with her oncologist at [facility] on 05/11/2017. Hospital Course Ms. Wheeler is a pleasant 46 year old female with a history of stage IV fallopian tube cancer, followed by [facility], presents to the ED today due to dizziness that started this morning. She denies any nausea, vomiting, diarrhea, fever, chills. Denies any chest pain, SOB, cough. - Dizziness - Probable dehydration - Dizziness may be due to poor oral intake, dehydration - Dizziness much improved.She is able to ambulate in the room without any dizziness. Tolerating diet well. - CT head, CXR images reviewed by me on 05/08/2017. No acute findings. - orthostatic blood pressures were unremarkable. - Continue NS - increase fluid. I checked with patient later again, she feels somewhat better. Will d/c her home. - Regular diet. - Leukocytosis - WBC 22.5K with neutrophil 81.3%. WBC today 20.6K. No sign of active infection. - History of stage IV fallopian tube cancer - Patient has an appt at [facility] on 05/11/2017. - Apparently a month ago, imaging study did not show any evidence of brain mets. - Continue home medications including pain meds - Methadone, Dilaudid. - History of pulmonary embolism - Continue Xarelto. Full code. Xarelto. Pt Condition on Discharge: Good Discharge Disposition: Discharge Home Discharge Time: > 30 minutes Discharge Instructions DIET: Follow Instructions for: As Tolerated, No Restrictions Activities you can perform: Regular-No Restrictions Follow up Referrals: Oncology - 2-3 Days with [facility] PCP Follow-up - 1 Week New Medications: Ondansetron Odt (Zofran Odt) 4 Mg Tab 4 MG SL Q6HR PRN Nausea/Vomiting #30 Ref 0 TAB Changed Medications: Hydromorphone (Dilaudid) 8 Mg Tab 8 MG PO Q6HR Pain Management #20 Ref 0 TAB (Changed from: 5 TIMES A DAY) Continued Medications: Alprazolam (Xanax) 1 Mg Tab 1 MG PO 5 TIMES A DAY ANXIETY Ref 0 TAB Dexamethasone (Dexamethasone) 4 Mg Tab 4 MG PO DAILY #30 Ref 0 TAB Dronabinol (Marinol) 5 Mg Cap 5 MG PO BID Ref 0 CAP Gabapentin (Gabapentin) 600 Mg Tab 600 MG PO BID #60 Ref 0 TAB Loratadine (Claritin) 10 Mg Cap 10 MG PO DAILY Allergy Management Ref 0 CAP Methadone (Methadone) 10 Mg Tab 20 MG PO Q8HR Ref 0 TAB Metoclopramide (Metoclopramide) 10 Mg Tab 10 MG PO Q6HR Ref 0 TAB Prochlorperazine Supp (Prochlorperazine Supp) 25 Mg Supp 25 MG RECTAL Q12H NAUSEA OR VOMITING #3 Ref 0 SUPP Rivaroxaban (Xarelto) 15 Mg Tab 20 MG PO DAILY Blood Clot Prevention Ref 0 TAB Sennosides (Senokot) 8.6 Mg Tab 8.6 MG PO 6 times daily Constipation #30 Ref 0 TAB Adebayo Ryan DO May 10, 2017 14:22
[2017-05-10 16:49] VITALS: BP 121/82; PULSE 107; RESP 20; TEMP 97.2; O2SAT 95
== END 2017-05-10 18:00 | disposition home or self-care (01) ==
LOC: NEPE 09:37 → NEDA 14:52 → NEPE 15:22 → HSDI 15:22 → HOCA 16:48 → HOCB 19:48
PROVIDERS: ADMIT Hospitalist; ATTEND Hospitalist
DX: R42 Dizziness and giddiness (principal); D64.9 Anemia, unspecified; E86.0 Dehydration; R11.2 Nausea with vomiting, unspecified; G89.3 Neoplasm related pain (acute) (chronic); R53.1 Weakness; R53.83 Other fatigue; D72.829 Elevated white blood cell count, unspecified; E87.6 Hypokalemia; C57.00 Malignant neoplasm of unspecified fallopian tube; C77.9 Secondary and unspecified malignant neoplasm of lymph node, unspecified; C79.51 Secondary malignant neoplasm of bone; C78.00 Secondary malignant neoplasm of unspecified lung; F41.9 Anxiety disorder, unspecified; F32.9 Major depressive disorder, single episode, unspecified; Z79.01 Long term (current) use of anticoagulants; Z86.711 Personal history of pulmonary embolism; Z79.899 Other long term (current) drug therapy
CPT/HCPCS: 70450; 71010; 80048; 80053; 81001; 83735; 85007; 85027; 86850; 86900; 86901; 86920; 87040; 96365; 96366; 96375; 99285; G0378; J1170; J2405; J3475; J7030; J8540

== ENCOUNTER 2017-05-26 06:03 | Emergency (ER) | payer MEDICARE, MEDICAID ==
[~2017-05-26] VITALS: Ht 160 cm; Wt 72.5 kg
[~2017-05-26 06:03] MED LIST changes: +ZOFR4TAB3 SL
[2017-05-26 06:11] VITALS: BP 114/69; PULSE 81; RESP 16; TEMP 98; O2SAT 100
[2017-05-26] MEDS ORDERED: SODIUM CHLOR 0.9% 1000 ML INJ 1,000 ML IV ONE ×2 (06:52→07:00)
[2017-05-26] MEDS ORDERED: ONDANSETRON HCL 4 MG/2 ML VIAL IVP ONE (07:00)
[2017-05-26] MEDS ORDERED: SODIUM CHLORIDE 0.9% FLUSH 10 ML FLUSH IVF PRN (07:00)
[2017-05-26] MEDS ORDERED: HYDROmorphone HCL PF 1 MG/ML VIAL IV PUSH ONE ×2 (07:00→08:30)
--- NOTE | 2017-05-26 07:09 | PD ---
HPI Chief Complaint: GI Complaint Time Seen by Provider: 06:49 Travel History International Travel<30 days: No Contact w/Intl Traveler<30days: No Traveled to known affect area: No History of Present Illness HPI 46-year-old female presents to the emergency department for complaint of nausea vomiting diarrhea and dehydration dizziness chest pain and shortness of breath. 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 Patient is under the care of [facility] in [place] and is not followed by a local oncologist. Patient states she did not get in contact with her managing oncologist. Patient denies any fever but has experienced chills. Patient does complain of severe bone pain primarily in her chest with shortness of breath. Patient is diagnosed with right sided PE and takes Xarelto daily. Patient did take her Xarelto this morning prior to coming to the emergency room. Patient is very concerned about being dehydrated increase the amount of diarrhea and vomiting that she has been experiencing with poor oral intake. Patient states she experiences this monthly associated with her chemotherapy. Patient reports that she was admitted approximately 1 month ago to [facility] due to similar symptoms. Patient has had dry mouth mouth sores no sore throat no productive cough no hemoptysis no hematemesis no report of abdominal pain no coffee-ground emesis or bilious emesis diarrhea is without melena or hematochezia patient has noted decreased urine output. Patient denies skin rash or joint swelling. PFSH Past Medical History Narrative Medical PE on Xarelto anxiety. In tube cancer with lung: Lung and bone metastases chemotherapy hysterectomy and bilateral oophorectomy and salpingectomy myomectomy [id number]-o-Wrxy right chest; no tobacco or alcohol use; nursing notes reviewed Hx Anticoagulant Therapy: Yes (xarelto) Anxiety: Yes Depression: Yes Heart Rhythm Problems: No Cancer: Yes (DX FALLOPIAN TUBE CA mets to lung, colon, lymph, bone. ) Cardiovascular Problems: No High Cholesterol: No Chemotherapy: Yes Chest Pain: No Congestive Heart Failure: No Diabetes: No Diminished Hearing: No Endocrine: No Gastrointestinal Disorders: Yes (ABDOMINAL TUMOR) Genitourinary: No Hepatitis: No Hiatal Hernia: No Heparin Induced Thrombocytopen: No Hypertension: No Immune Disorder: No Implanted Vascular Access Dvce: Yes (power port right subclavian) Musculoskeletal: No Neurologic: Yes Psychiatric: Yes Reproductive: Yes (FALLOPIAN TUBE CANCER- point of origin) Respiratory: Yes (BLOOD CLOT RIGHT LUNG) Migraines: No Radiation Therapy: No Sickle Cell Disease: No Thyroid Disease: No Tetanus Vaccination: Unknown PNEUMOCCOCAL Vaccine (Year): 2 ?: Unknown : 0 Past Surgical History Abdominal Surgery: Yes (CANCER REMOVED FROM AROUND AORTA & BOWELS) Body Medical Devices: Infussa-port RIGHT CHEST WALL Genitourinary Surgery: Yes (BENIGN & malignant TUMORS REMOVED) Gynecologic Surgery: Yes (MYOMECTOMY) Hysterectomy: Yes Other Surgery: Yes (HYSTERECTOMY, TORN ROTATOR CUFFS, ) Social History Alcohol Use: No Tobacco Use: No (former) Substance Use: No Allergies-Medications (Allergen,Severity, Reaction): Coded Allergies: Adhesives (Verified Allergy, Intermediate, SKIN REACTION, 05/26/17) Doxil (Verified Allergy, Intermediate, Rash, 05/26/17) Reported Meds & Prescriptions Reported Meds & Active Scripts Active Zofran Odt (Ondansetron Odt) 4 Mg Tab 4 Mg SL Q6HR PRN Dilaudid (Hydromorphone HCl) 8 Mg Tab 8 Mg PO Q6HR Walker with Front Wheels (Device) 1 Mis Mis 1 Ea .ROUTE DIRECTED Reported Xarelto (Rivaroxaban) 15 Mg Tab 20 Mg PO DAILY Metoclopramide (Metoclopramide HCl) 10 Mg Tab 10 Mg PO Q6HR Dexamethasone 4 Mg Tab 4 Mg PO DAILY Prochlorperazine Supp (Prochlorperazine) 25 Mg Supp 25 Mg RECTAL Q12H Methadone (Methadone HCl) 10 Mg Tab 20 Mg PO Q8HR Claritin (Loratadine) 10 Mg Cap 10 Mg PO DAILY Gabapentin 600 Mg Tab 600 Mg PO BID Marinol (Dronabinol) 5 Mg Cap 5 Mg PO BID Senokot (Sennosides) 8.6 Mg Tab 8.6 Mg PO 6 TIMES DAILY Xanax (Alprazolam) 1 Mg Tab 1 Mg PO 5 TIMES A DAY Review of Systems Except as stated in HPI: all other systems reviewed are Neg General / Constitutional: Positive: Chills, No: Fever HENT: Positive: Sore Throat, No: Congestion Cardiovascular: Positive: Chest Pain or Discomfort, No: Diaphoresis, Syncope, Dyspnea on exertion, Edema Respiratory: Positive: Shortness of Breath, Pleuritic Pain, No: Cough Gastrointestinal: Positive: Nausea, Vomiting, Diarrhea, Abdominal Pain Genitourinary: No: Dysuria, Flank Pain Musculoskeletal: Positive: Myalgias, Arthralgias Skin: No Rash Neurologic: Positive: Weakness, Dizziness, No: Syncope, Focal Abnormalities Psychiatric: Positive: Anxiety Hematologic/Lymphatic: No: Lymph Node Enlargement Physical Exam Narrative GENERAL: Well-developed well-nourished ill anxious appearing female in no respiratory distress; gcs 15 SKIN: Warm and dry. HEAD: Normocephalic. EYES: No scleral icterus. No injection or drainage. NECK: Supple, trachea midline. No JVD or lymphadenopathy. CARDIOVASCULAR: Regular rate and rhythm without murmurs, gallops, or rubs. RESPIRATORY: Breath sounds equal bilaterally. No accessory muscle use. GASTROINTESTINAL: Abdomen soft, non-tender, nondistended. MUSCULOSKELETAL: No cyanosis, or edema. BACK: Nontender without obvious deformity. No CVA tenderness. Data Data Last Documented VS Vital Signs Date Time Temp Pulse Resp B/P Pulse Ox O2 Delivery O2 Flow Rate FiO2 05/26/17 06:11 98.0 81 16 114/69 100 MDM Medical Decision Making Medical Screen Exam Complete: Yes Emergency Medical Condition: Yes Medical Record Reviewed: Yes Differential Diagnosis Dehydration, electrolyte disturbance, sepsis, anemia, pancytopenia Narrative Course Patient placed on neutropenic isolation precautions PowerPort accessed IV fluids and Zofran administered patient reports she was not able to take her morning dose of pain medicine Dilaudid 8 mg prior to arrival to the emergency department but did take her Xarelto. Specimens collected and sent for resulting. Patient's care was signed over to oncoming physician Dr. Beal for follow-up of pending diagnostics and patient disposition. Ame Rodriguez MD May 26, 2017 07:09
--- NOTE | 2017-05-26 07:10 | RADRPT ---
EXAM DATE/TIME: 05/26/2017 07:01 [facility] COMPARISON: CHEST SINGLE AP, May 08, 2017, 10:34. INDICATIONS : Shortness of breath. MEDICAL HISTORY : Ovarian cancer SURGICAL HISTORY : Infusaport. ENCOUNTER: Initial ACUITY: 1 day PAIN SCORE: 0/10 LOCATION: Bilateral chest FINDINGS: The lungs are clear without infiltrate, nodule, or mass. There is no appreciable pleural effusion fo r technique. Heart and mediastinum are unremarkable. Right IJ [place] is present with tip over lapping the expected region of the SVC. CONCLUSION: No acute cardiopulmonary disease. Marsha Stacy MD on May 26, 2017 at 7:08 Board Certified Radiologist. This report was verified electronically.
--- NOTE | 2017-05-26 07:24 | RADRPT ---
EXAM DATE/TIME: 05/26/2017 07:05 [facility] COMPARISON: CT BRAIN W/O CONTRAST, May 08, 2017, 11:39. INDICATIONS : Headache, nausea, and vomiting. Patient currently undergoing chemo for stage 4 fallopian tube cancer. RADIATION DOSE: 58.44 CTDIvol (mGy) MEDICAL HISTORY : Anticoagulant therapy. Abdomen cancer. Fallopian tube cancer. SURGICAL HISTORY : Hysterectomy. Myomectomy. ENCOUNTER: Initial ACUITY: 3 days PAIN SCALE: 6/10 LOCATION: cranial TECHNIQUE: Multiple contiguous axial images were obtained of the head. Using automated exposure control and adj ustment of the mA and/or kV according to patient size, radiation dose was kept as low as reasonably a chievable to obtain optimal diagnostic quality images. DICOM format image data is available electro nically for review and comparison. FINDINGS: There is no evidence for intracranial hemorrhage, mass effect, mass lesions, edema, or extra-axial fl uid collections. The visualized bony structures appear intact. The ventricles are normal size for t he patient's age. There are no signs of acute infarction for technique. CONCLUSION: Unremarkable study. Marsha Stacy MD on May 26, 2017 at 7:21 Board Certified Radiologist. This report was verified electronically.
[2017-05-26 07:52] LABS: BLOOD, URINE TRACE (NEG); GLUCOSE,URINE NEG (NEG); KETONE, URINE NEG (NEG); NITRITE,URINE NEG (NEG); PH, URINE 5.5 (5.0-8.5)
[2017-05-26 07:55] LABS: BASOPHIL % 0.3 % (0.0-2.0); EOSINOPHIL % 0.1 % (0.0-4.0); HEMATOCRIT 35.5 % (35.0-46.0); LYMPH % 48.9 % (9.0-44.0); LYMPHOCYTE # 2.6 TH/MM3 (1.0-4.8); MEAN CELL VOLUME 79.2 FL (80.0-100.0); MEAN CORPUSCULAR HEMOGLOBIN 24.9 PG (27.0-34.0); MEAN CORPUSCULAR HGB CONC 31.4 % (32.0-36.0); MONO % 14.1 % (0.0-8.0); NEUT % 36.6 % (16.0-70.0); PLATELET COUNT 254 TH/MM3 (150-450); RED BLOOD COUNT 4.49 MIL/MM3 (4.00-5.30); RED CELL DISTRIBUTION WIDTH 20.2 % (11.6-17.2); WHITE BLOOD COUNT 5.4 TH/MM3 (4.0-11.0)
[2017-05-26 07:58] LABS: HEMO FLAGS AUTO DIFF
[2017-05-26 08:00] VITALS: RESP 16; O2SAT 100
[2017-05-26 08:01] LABS: CHLORIDE 104 MEQ/L (98-107); POTASSIUM 3.6 MEQ/L (3.5-5.1); SODIUM (NA) 139 MEQ/L (136-145)
[2017-05-26 08:04] LABS: ANION GAP 8 MEQ/L (5-15); BICARBONATE 26.7 MEQ/L (21.0-32.0); BLOOD UREA NITROGEN 20 MG/DL (7-18); MAGNESIUM 1.4 MG/DL (1.5-2.5)
[2017-05-26 08:05] LABS: APTT (PATIENT) 43.9 SEC (24.3-30.1); INTERNATIONAL NORMALIZED RATIO 1.2 RATIO; PROTHROMBIN TIME - PATIENT 13.3 SEC (9.8-11.6)
[2017-05-26 08:07] LABS: ALT (GPT) 21 U/L (10-53); AST (GOT) 12 U/L (15-37); GLOMERULAR FILTRATION RATE 125 ML/MIN (>89)
[2017-05-26 08:09] LABS: METHOD OF COLLECTION CLEAN CATCH; TOTAL BILIRUBIN ADULT 0.2 MG/DL (0.2-1.0); URINE COLOR YELLOW (YELLW/STRAW)
[2017-05-26 08:10] LABS: ALKALINE PHOSPHATASE 95 U/L (45-117); COMMENT (UR) CULT NOT INDICATED; CULTURE IF INDICATED CULT NOT INDICATED; RBC, URINE 0-3 /hpf (0-3); WBC, URINE 0-2 /hpf (0-5)
[2017-05-26 08:23] VITALS: BP 107/69; PULSE 63; RESP 16; O2SAT 100
[2017-05-26 08:31] LABS: KERATOCYTES OCC (NORMAL); OVALOCYTES 1+ (NORMAL); SCAN/DIFF AUTO DIFF CONFIRMED; TARGET CELLS 1+ (NORMAL); TEARDROP RBCS 1+ (NORMAL)
[2017-05-26 09:15] VITALS: BP 92/58; PULSE 63; RESP 16; O2SAT 100
--- NOTE | 2017-05-26 09:43 | PD ---
Data Data Last Documented VS Vital Signs Date Time Temp Pulse Resp B/P Pulse Ox O2 Delivery O2 Flow Rate FiO2 05/26/17 09:30 16 05/26/17 09:15 63 92/58 100 Room Air 05/26/17 06:11 98.0 Orders Electrocardiogram (05/26/17 06:52) Complete Blood Count With Diff (05/26/17 06:52) Comprehensive Metabolic Panel (05/26/17 06:52) Magnesium (Mg) (05/26/17 06:52) Act Partial Throm Time (Ptt) (05/26/17 06:52) Prothrombin Time / Inr (Pt) (05/26/17 06:52) Urinalysis - C+S If Indicated (05/26/17 06:52) Chest, Single Ap (05/26/17 06:52) Ct Brain W/O Iv Contrast(Rout) (05/26/17 06:52) Blood Glucose (05/26/17 06:52) Ecg Monitoring (05/26/17 06:52) Iv Access Insert/Monitor (05/26/17 06:52) Oximetry (05/26/17 06:52) Ondansetron Inj (Zofran Inj) (05/26/17 07:00) Sodium Chloride 0.9% Flush (Ns Flush) (05/26/17 07:00) Sodium Chlor 0.9% 1000 Ml Inj (Ns 1000 M (05/26/17 06:52) Hydromorphone Pf Inj (Dilaudid Pf Inj) (05/26/17 07:00) Sodium Chlor 0.9% 1000 Ml Inj (Ns 1000 M (05/26/17 07:00) Blood Culture (05/26/17 06:52) Lactic Acid (05/26/17 06:52) Isolation 08,20 (05/26/17 06:52) Hydromorphone Pf Inj (Dilaudid Pf Inj) (05/26/17 08:30) Heparin Central Flush (Heparin Central F (05/26/17 10:00) Labs Laboratory Tests Test 05/26/17 07:35 White Blood Count 5.4 TH/MM3 Red Blood Count 4.49 MIL/MM3 Hemoglobin 11.2 GM/DL Hematocrit 35.5 % Mean Corpuscular Volume 79.2 FL Mean Corpuscular Hemoglobin 24.9 PG Mean Corpuscular Hemoglobin 31.4 % Concent Red Cell Distribution Width 20.2 % Platelet Count 254 TH/MM3 Mean Platelet Volume 8.4 FL Neutrophils (%) (Auto) 36.6 % Lymphocytes (%) (Auto) 48.9 % Monocytes (%) (Auto) 14.1 % Eosinophils (%) (Auto) 0.1 % Basophils (%) (Auto) 0.3 % Neutrophils # (Auto) 2.0 TH/MM3 Lymphocytes # (Auto) 2.6 TH/MM3 Monocytes # (Auto) 0.8 TH/MM3 Eosinophils # (Auto) 0.0 TH/MM3 Basophils # (Auto) 0.0 TH/MM3 CBC Comment AUTO DIFF Differential Comment AUTO DIFF CONFIRMED Target Cells 1+ Tear Drop Cells 1+ Ovalocytes 1+ Keratocytes OCC Prothrombin Time 13.3 SEC Prothromb Time International 1.2 RATIO Ratio Activated Partial 43.9 SEC Thromboplast Time Urine Collection Type CLEAN CATCH Urine Color YELLOW Urine Turbidity CLEAR Urine pH 5.5 Urine Specific [place] 1.026 Urine Protein NEG mg/dL Urine Glucose (UA) NEG mg/dL Urine Ketones NEG mg/dL Urine Occult Blood TRACE Urine Nitrite NEG Urine Bilirubin NEG Urine Leukocyte Esterase NEG Urine RBC 0-3 /hpf Urine WBC 0-2 /hpf Urine Squamous Epithelial 6-8 /hpf Cells Microscopic Urinalysis Comment CULT NOT INDICATED Urine Collection Time 07:35 Sodium Level 139 MEQ/L Potassium Level 3.6 MEQ/L Chloride Level 104 MEQ/L Carbon Dioxide Level 26.7 MEQ/L Anion Gap 8 MEQ/L Blood Urea Nitrogen 20 MG/DL Creatinine 0.62 MG/DL Estimat Glomerular Filtration 125 ML/MIN Rate Random Glucose 90 MG/DL Lactic Acid Level 1.8 mmol/L Calcium Level 8.7 MG/DL Magnesium Level 1.4 MG/DL Total Bilirubin 0.2 MG/DL Aspartate Amino Transf 12 U/L (AST/SGOT) Alanine Aminotransferase 21 U/L (ALT/SGPT) Alkaline Phosphatase 95 U/L Total Protein 6.6 GM/DL Albumin 3.4 GM/DL [facility] Medical Record Reviewed: Yes Supervised Visit with DEON: No Narrative Course CBC & BMP Diagram 05/26/17 07:35 LA 1.8 LFTs normal INR 1.2 UA: no UTI Pt received IVF, Zofran and hydromorphone. 0830: pt reassessed found resting comfortably, mild persistent bone pain 0950: pt reassessed found resting comfortably, pain resolved and pt states she' s ready to go home Please refer to Dr Rodriguez's note for additional information. Diagnosis Primary Impression: Medication side effect Qualified Code: T88.7XXD - Medication side effect, subsequent encounter Additional Impressions: Nausea and vomiting Qualified Code: R11.2 - Non-intractable vomiting with nausea, unspecified vomiting type Bone pain Referrals: Oncologist 2 days Additional Instruction: PLEASE RETURN TO ER IF YOU DEVELOP SEVERE ABDOMINAL PAIN, FEVER OR IF NAUSEA/ VOMITING PERSISTS DESPITE MEDICATION. PLEASE BE ESPECIALLY AWARE OF YOUR PAIN OVER THE NEXT 8 HOURS AND IF IT GETS WORSE PLEASE RETURN RIGHT AWAY. Med/Other Pt SpecificInfo: No Change to Meds Disposition: 01 DISCHARGE HOME Condition: Stable Grey Beal MD May 26, 2017 09:43
[2017-05-26 10:00] VITALS: BP 96/60; PULSE 67; RESP 16; O2SAT 100
--- NOTE | 2017-05-26 11:57 | EKG ---
Date Performed: 05/26/2017 Time Performed: 07:45:40 PTAGE: 46 years EKG: Sinus rhythm MODERATE VOLTAGE CRITERIA FOR LVH, CONSIDER NORMAL VARIANT BORDERLINE ECG PREVIOUS TRACING : 03/22/2017 07.36 Compared to prior tracing no significant change DOCTOR: Real Cruz Interpretating Date/Time 05/26/2017 11:55:11
== END 2017-05-26 10:39 | disposition home or self-care (01) ==
LOC: PHED 06:03
DX: T88.7XXD Unspecified adverse effect of drug or medicament, subsequent encounter (principal); R11.2 Nausea with vomiting, unspecified; M89.8X8 Other specified disorders of bone, other site; R19.7 Diarrhea, unspecified; R42 Dizziness and giddiness; R07.9 Chest pain, unspecified; R06.02 Shortness of breath; R94.31 Abnormal electrocardiogram [ECG] [EKG]; C57.00 Malignant neoplasm of unspecified fallopian tube; C77.9 Secondary and unspecified malignant neoplasm of lymph node, unspecified; C78.00 Secondary malignant neoplasm of unspecified lung; C79.51 Secondary malignant neoplasm of bone; I26.99 Other pulmonary embolism without acute cor pulmonale; Z79.01 Long term (current) use of anticoagulants; Z86.59 Personal history of other mental and behavioral disorders; Z87.19 Personal history of other diseases of the digestive system; Z86.69 Personal history of other diseases of the nervous system and sense organs
CPT/HCPCS: 70450; 71010; 80053; 81001; 83605; 83735; 85025; 85610; 85730; 87040; 93005; 96361; 96374; 96375; 96376; 99285; J1170; J1642; J2405; J7030

== ENCOUNTER 2017-08-29 06:49 | Emergency (ER) | payer MEDICARE, MEDICAID ==
[~2017-08-29] VITALS: Ht 160 cm; Wt 72.3 kg
[2017-08-29 06:59] VITALS: BP 116/69; PULSE 107; RESP 16; TEMP 98.9; O2SAT 99
[2017-08-29] MEDS ORDERED: chemo (07:18)
--- NOTE | 2017-08-29 07:22 | PD ---
HPI Chief Complaint: Musculoskeletal Complaint Time Seen by Provider: 07:04 Travel History International Travel<30 days: No Contact w/Intl Traveler<30days: No Traveled to known affect area: No History of Present Illness HPI The patient is a 47-year-old [place] female who presents to the emergency department for generalized pain. 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 The patient is currently undergoing treatment at the [facility] [place] in [place], [place]. The patient received her second dose of a new chemotherapeutic medication yesterday that starts with a letter "and ", however, does not know the name. The patient states that yesterday's dose was her second dose of this medication after she failed Taxotere and carboplatin. The patient states she's been having left hip pain or last several months, was evaluated with an x-ray and a CT which revealed cancer in her lymph nodes but no cancer in the left hip bone per her report. Patient states she is on chronic pain medications at home including methadone and Dilaudid, however, since the chemotherapy was a few she is unable to get relief at home. She has had similar symptoms in the past which improved with IV pain medications. She denies any acute fever, chills, or sweats. She does have a history of pulmonary embolism for which she takes Xarelto. Symptoms are moderate, exacerbated after receiving chemotherapy, and alleviated in the past with IV pain medications. The patient's primary physician is Dr. Betancourt. [facility] Past Medical History Hx Anticoagulant Therapy: Yes (xarelto) Anxiety: Yes Depression: Yes Heart Rhythm Problems: No Cancer: Yes (DX FALLOPIAN TUBE CA mets to lung, colon, lymph, bone. ) Cardiovascular Problems: No High Cholesterol: No Chemotherapy: Yes (08/29/17) Chest Pain: No Congestive Heart Failure: No Diabetes: No Diminished Hearing: No Endocrine: No Gastrointestinal Disorders: Yes (ABDOMINAL TUMOR) Genitourinary: No Hepatitis: No Hiatal Hernia: No Heparin Induced Thrombocytopen: No Hypertension: No Immune Disorder: No Implanted Vascular Access Dvce: Yes (power port right subclavian) Medical other: No Musculoskeletal: No Neurologic: Yes Psychiatric: Yes Reproductive: Yes (FALLOPIAN TUBE CANCER- point of origin) Respiratory: Yes (BLOOD CLOT RIGHT LUNG) Migraines: No Radiation Therapy: No Sickle Cell Disease: No Thyroid Disease: No PNEUMOCCOCAL Vaccine (Year): 2 ?: Not : 0 Past Surgical History Abdominal Surgery: Yes (CANCER REMOVED FROM AROUND AORTA & BOWELS) Body Medical Devices: Infussa-port RIGHT CHEST WALL Genitourinary Surgery: Yes (BENIGN & malignant TUMORS REMOVED) Gynecologic Surgery: Yes (MYOMECTOMY) Hysterectomy: Yes Other Surgery: Yes (HYSTERECTOMY, TORN ROTATOR CUFFS, ) Social History Alcohol Use: No Tobacco Use: No (former) Substance Use: No Allergies-Medications (Allergen,Severity, Reaction): Coded Allergies: adhesive (Unverified Allergy, Intermediate, SKIN REACTION, 06/16/17) doxorubicin (Unverified Allergy, Intermediate, Rash, 06/16/17) latex (Verified Allergy, Mild, Rash, 08/29/17) Reported Meds & Prescriptions Reported Meds & Active Scripts Active Zofran Odt (Ondansetron Odt) 4 Mg Tab 4 Mg SL Q6HR PRN Dilaudid (Hydromorphone HCl) 8 Mg Tab 8 Mg PO Q6HR Walker with Front Wheels (Device) 1 Mis Mis 1 Ea .ROUTE DIRECTED Reported [chemo] Xarelto (Rivaroxaban) 15 Mg Tab 20 Mg PO DAILY Metoclopramide (Metoclopramide HCl) 10 Mg Tab 10 Mg PO Q6HR Dexamethasone 4 Mg Tab 4 Mg PO DAILY Prochlorperazine Supp (Prochlorperazine) 25 Mg Supp 25 Mg RECTAL Q12H Methadone (Methadone HCl) 10 Mg Tab 20 Mg PO Q8HR Claritin (Loratadine) 10 Mg Cap 10 Mg PO DAILY Gabapentin 600 Mg Tab 600 Mg PO BID Marinol (Dronabinol) 5 Mg Cap 5 Mg PO BID Senokot (Sennosides) 8.6 Mg Tab 8.6 Mg PO 6 TIMES DAILY Xanax (Alprazolam) 1 Mg Tab 1 Mg PO 5 TIMES A DAY Review of Systems Except as stated in HPI: all other systems reviewed are Neg General / Constitutional: No: Fever HENT: Positive: Headaches Cardiovascular: No: Chest Pain or Discomfort Respiratory: No: Shortness of Breath Musculoskeletal: Positive: Myalgias, Pain Neurologic: No: Paresthesia Physical Exam Narrative GENERAL: Awake, alert, very pleasant 47 year-old female who appears her stated age and is in no acute respiratory distress. SKIN: Focused skin assessment warm/dry. HEAD: Atraumatic. Normocephalic. EYES: Pupils equal and round. No scleral icterus. No injection or drainage. ENT: No nasal bleeding or discharge. Mucous membranes pink and moist. NECK: Trachea midline. No JVD. CARDIOVASCULAR: Regular rate and rhythm. No murmur appreciated. Port in place right chest wall. RESPIRATORY: No accessory muscle use. Clear to auscultation. Breath sounds equal bilaterally. GASTROINTESTINAL: Abdomen soft, non-tender, nondistended. Well-healed midline abdominal scar. MUSCULOSKELETAL: No obvious deformities. No clubbing. No cyanosis. No edema. Palpable left femoral pulse. No significant enlarged lymph nodes in the left inguinal region that I can palpate. Patient is able to ambulate. NEUROLOGICAL: Awake and alert. No obvious cranial nerve deficits. Motor grossly within normal limits. Normal speech. Nonfocal. PSYCHIATRIC: Appropriate mood and affect; insight and judgment normal. Data Data Last Documented VS Vital Signs Date Time Temp Pulse Resp B/P (MAP) Pulse Ox O2 Delivery O2 Flow Rate FiO2 08/29/17 06:59 98.9 107 16 116/69 (85) 99 Orders Orders Complete Blood Count With Diff (08/29/17 07:16) Basic Metabolic Panel (Bmp) (08/29/17 07:16) Hydromorphone Pf Inj (Dilaudid Pf Inj) (08/29/17 07:30) Ondansetron Inj (Zofran Inj) (08/29/17 07:30) Diphenhydramine Inj (Benadryl Inj) (08/29/17 07:30) Sodium Chlorid 0.9% 500 Ml Inj (Ns 500 M (08/29/17 07:30) Diphenhydramine Inj (Benadryl Inj) (08/29/17 07:45) Hydromorphone Pf Inj (Dilaudid Pf Inj) (08/29/17 08:15) Heparin Central Flush (Heparin Central F (08/29/17 08:15) Labs Laboratory Tests Test 08/29/17 07:34 White Blood Count 4.6 TH/MM3 Red Blood Count 4.87 MIL/MM3 Hemoglobin 10.8 GM/DL Hematocrit 33.7 % Mean Corpuscular Volume 69.2 FL Mean Corpuscular Hemoglobin 22.1 PG Mean Corpuscular Hemoglobin Concent 31.9 % Red Cell Distribution Width 20.1 % Platelet Count 323 TH/MM3 Mean Platelet Volume 7.6 FL Neutrophils (%) (Auto) 59.6 % Lymphocytes (%) (Auto) 30.9 % Monocytes (%) (Auto) 7.9 % Eosinophils (%) (Auto) 0.7 % Basophils (%) (Auto) 0.9 % Neutrophils # (Auto) 2.8 TH/MM3 Lymphocytes # (Auto) 1.4 TH/MM3 Monocytes # (Auto) 0.4 TH/MM3 Eosinophils # (Auto) 0.0 TH/MM3 Basophils # (Auto) 0.0 TH/MM3 CBC Comment AUTO DIFF Differential Comment AUTO DIFF CONFIRMED Blood Urea Nitrogen 11 MG/DL Creatinine 0.55 MG/DL Random Glucose 98 MG/DL Calcium Level 8.6 MG/DL Sodium Level 138 MEQ/L Potassium Level 3.8 MEQ/L Chloride Level 105 MEQ/L Carbon Dioxide Level 25.1 MEQ/L Anion Gap 8 MEQ/L Estimat Glomerular Filtration Rate 143 ML/MIN [facility] Medical Decision Making Medical Screen Exam Complete: Yes Emergency Medical Condition: Yes Medical Record Reviewed: Yes Interpretation(s) Laboratory Tests Test 08/29/17 07:34 White Blood Count 4.6 TH/MM3 Red Blood Count 4.87 MIL/MM3 Hemoglobin 10.8 GM/DL Hematocrit 33.7 % Mean Corpuscular Volume 69.2 FL Mean Corpuscular Hemoglobin 22.1 PG Mean Corpuscular Hemoglobin Concent 31.9 % Red Cell Distribution Width 20.1 % Platelet Count 323 TH/MM3 Mean Platelet Volume 7.6 FL Neutrophils (%) (Auto) 59.6 % Lymphocytes (%) (Auto) 30.9 % Monocytes (%) (Auto) 7.9 % Eosinophils (%) (Auto) 0.7 % Basophils (%) (Auto) 0.9 % Neutrophils # (Auto) 2.8 TH/MM3 Lymphocytes # (Auto) 1.4 TH/MM3 Monocytes # (Auto) 0.4 TH/MM3 Eosinophils # (Auto) 0.0 TH/MM3 Basophils # (Auto) 0.0 TH/MM3 CBC Comment AUTO DIFF Differential Comment AUTO DIFF CONFIRMED Blood Urea Nitrogen 11 MG/DL Creatinine 0.55 MG/DL Random Glucose 98 MG/DL Calcium Level 8.6 MG/DL Sodium Level 138 MEQ/L Potassium Level 3.8 MEQ/L Chloride Level 105 MEQ/L Carbon Dioxide Level 25.1 MEQ/L Anion Gap 8 MEQ/L Estimat Glomerular Filtration Rate 143 ML/MIN Differential Diagnosis differential diagnosis includes stage IV metastatic cancer, metastasis, intractable pain, hypercalcemia, hypocalcemia, chemotherapy medication side effect. Narrative Course The patient's port was accessed. Labs were drawn and sent. The patient was placed on cardiac telemetry monitoring and continuous pulse oximetry monitoring. The patient was administered Dilaudid, Zofran, Benadryl, and IV fluids. CBC reveals a hemoglobin of 10.6, white count of platelets are unremarkable. BMP is unremarkable. The patient was reassessed at 8:05 AM. The patient's pain has significantly improved, however, she still had mild pain in the left pelvis and left hip. The patient has an appointment on Thursday at the [facility], was advised at her appointment yesterday to inquire about possible pain interventional evaluation for a nerve block to improve her symptoms. The patient was administered another dose of Dilaudid, this time 0.5 mg intravenously. She'll be discharged home with a ride. She is advised to follow-up with her appointment on Thursday as directed and return if symptoms worsen or progress. Diagnosis Primary Impression: Bone pain Additional Impressions: Fallopian tube carcinoma Qualified Codes: C57.00 - Malignant neoplasm of unspecified fallopian tube Medication side effect Qualified Codes: T88.7XXA - Unspecified adverse effect of drug or medicament, initial encounter Patient Instructions: General Instructions, Narcotic given in the ED Additional Instructions: Please provide the patient a copy of her lab results at discharge. Follow-up at the [facility] as scheduled on Thursday. Return sooner if symptoms worsen or progress. Med/Other Pt SpecificInfo: No Change to Meds Disposition: DISCHARGE HOME Condition: Stable Tanmay Armijo MD Aug 29, 2017 07:22
[2017-08-29] MEDS ORDERED: SODIUM CHLORID 0.9% 500 ML INJ 500 ML IV ONE (07:30)
[2017-08-29] MEDS ORDERED: diphenhydrAMINE HCL 50 MG/ML VIAL IM ONE (07:30)
[2017-08-29] MEDS ORDERED: ONDANSETRON HCL 4 MG/2 ML VIAL IV PUSH ONE (07:30)
[2017-08-29] MEDS ORDERED: HYDROmorphone HCL PF 1 MG/ML VIAL IV PUSH ONE ×2 (07:30→08:15)
[2017-08-29 07:37] LABS: AUTOMATED NEUTROPHIL # 2.8 TH/MM3 (1.8-7.7); BASOPHIL % 0.9 % (0.0-2.0); EOSINOPHIL % 0.7 % (0.0-4.0); HEMATOCRIT 33.7 % (35.0-46.0); HEMOGLOBIN 10.8 GM/DL (11.6-15.3); LYMPH % 30.9 % (9.0-44.0); LYMPHOCYTE # 1.4 TH/MM3 (1.0-4.8); MEAN CELL VOLUME 69.2 FL (80.0-100.0); MEAN CORPUSCULAR HEMOGLOBIN 22.1 PG (27.0-34.0); MEAN CORPUSCULAR HGB CONC 31.9 % (32.0-36.0); MEAN PLATELET VOLUME 7.6 FL (7.0-11.0); MONO % 7.9 % (0.0-8.0); MONOCYTE # 0.4 TH/MM3 (0-0.9); NEUT % 59.6 % (16.0-70.0); PLATELET COUNT 323 TH/MM3 (150-450); RED BLOOD COUNT 4.87 MIL/MM3 (4.00-5.30); RED CELL DISTRIBUTION WIDTH 20.1 % (11.6-17.2); WHITE BLOOD COUNT 4.6 TH/MM3 (4.0-11.0)
[2017-08-29] MEDS ORDERED: diphenhydrAMINE HCL 50 MG/ML VIAL IV PUSH ONE (07:45)
[2017-08-29 07:48] LABS: CALCIUM 8.6 MG/DL (8.5-10.1)
[2017-08-29 07:49] LABS: BICARBONATE 25.1 MEQ/L (21.0-32.0)
[2017-08-29 07:52] LABS: CREATININE 0.55 MG/DL (0.50-1.00)
== END 2017-08-29 09:16 | disposition home or self-care (01) ==
LOC: PHED 06:49
DX: M89.8X9 Other specified disorders of bone, unspecified site (principal); C57.00 Malignant neoplasm of unspecified fallopian tube; T45.1X5A Adverse effect of antineoplastic and immunosuppressive drugs, initial encounter; R51 Headache; M79.1 Myalgia; M25.552 Pain in left hip; F41.9 Anxiety disorder, unspecified; F32.9 Major depressive disorder, single episode, unspecified; Z87.891 Personal history of nicotine dependence
CPT/HCPCS: 80048; 85025; 96361; 96374; 96375; 96376; 99284; J1170; J1200; J1642; J2405; J7040

== ENCOUNTER 2017-11-28 12:59 | Emergency (ER) | payer MEDICARE, MEDICAID ==
[~2017-11-28] VITALS: Ht 160 cm; Wt 70.0 kg
[~2017-11-28 12:59] MED LIST changes: +Z.0.NO CURRENT MEDS; +chemo
[2017-11-28 13:10] VITALS: BP 143/79; PULSE 83; RESP 16; TEMP 98.4; O2SAT 99
[2017-11-28] MEDS ORDERED: HYDR8TAB PO (13:23)
[2017-11-28] MEDS ORDERED: BEVA100P (13:23)
[2017-11-28] MEDS ORDERED: CYCL1CAP4 PO (13:23)
--- NOTE | 2017-11-28 13:41 | PD ---
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 She has history of cancer and goes to [facility] to get her chemotherapy. She was there on the of this month and would be going back again on 10 December. Patient says for past 2-3 days she hasn't been eating or drinking much. Upon asking she says is all because of the chemotherapy. Vital signs are stable. She did not appear to be in any severe distress. No history of fever or chills. Patient is on methadone and Dilaudid at home for pain management. PFSH Past Medical History Narrative Medical List of her past medical, surgical, social and family histories be from the nursing note. Hx Anticoagulant Therapy: Yes (xarelto) Anxiety: Yes Depression: Yes Heart Rhythm Problems: No Cancer: Yes (DX FALLOPIAN TUBE CA mets to lung, colon, lymph, bone. ) Cardiovascular Problems: No High Cholesterol: No Chemotherapy: Yes (08/29/17) Chest Pain: No Congestive Heart Failure: No Diabetes: No Diminished Hearing: No Endocrine: No Gastrointestinal Disorders: Yes (ABDOMINAL TUMOR) Genitourinary: No Hepatitis: No Hiatal Hernia: No Heparin Induced Thrombocytopen: No Hypertension: No Immune Disorder: No Implanted Vascular Access Dvce: Yes (power port right subclavian) Musculoskeletal: No Neurologic: Yes Psychiatric: Yes Reproductive: Yes (FALLOPIAN TUBE CANCER- point of origin) Respiratory: Yes (BLOOD CLOT RIGHT LUNG) Migraines: No Radiation Therapy: No Sickle Cell Disease: No Thyroid Disease: No Tetanus Vaccination: > 5 Years Influenza Vaccination: No PNEUMOCCOCAL Vaccine (Year): 2 ?: Not Menopausal: Yes : 0 Past Surgical History Abdominal Surgery: Yes (CANCER REMOVED FROM AROUND AORTA & BOWELS) Body Medical Devices: Infussa-port RIGHT CHEST WALL Genitourinary Surgery: Yes (BENIGN & malignant TUMORS REMOVED) Gynecologic Surgery: Yes (MYOMECTOMY) Hysterectomy: Yes Other Surgery: Yes (HYSTERECTOMY, TORN ROTATOR CUFFS, ) Social History Alcohol Use: No Tobacco Use: No (former) Substance Use: No Allergies-Medications (Allergen,Severity, Reaction): Coded Allergies: adhesive (Verified Allergy, Intermediate, SKIN REACTION, 11/28/17) doxorubicin (Verified Allergy, Intermediate, Rash, 11/28/17) latex (Verified Allergy, Mild, Rash, 11/28/17) Comments List of her allergies reviewed from the nursing note. Reported Meds & Prescriptions Reported Meds & Active Scripts Active Zofran Odt (Ondansetron Odt) 4 Mg Tab 4 Mg SL Q6HR PRN Reported Cyclophosphamide 50 Mg Cap 50 Mg PO HS Hydromorphone (Hydromorphone HCl) 8 Mg Tab 16 Mg PO DIRECTED PRN Xarelto (Rivaroxaban) 15 Mg Tab 20 Mg PO DAILY Metoclopramide (Metoclopramide HCl) 10 Mg Tab 10 Mg PO Q6HR Dexamethasone 4 Mg Tab 4 Mg PO DAILY Methadone (Methadone HCl) 10 Mg Tab 20 Mg PO Q8HR Gabapentin 600 Mg Tab 600 Mg PO BID Marinol (Dronabinol) 5 Mg Cap 5 Mg PO BID Senokot (Sennosides) 8.6 Mg Tab 8.6 Mg PO 6 TIMES DAILY Xanax (Alprazolam) 1 Mg Tab 1 Mg PO TID Avastin Inj (Bevacizumab) 25 Mg/Ml Inj Narrative Medication List of her home medications reviewed from the nursing note. Review of Systems Except as stated in HPI: all other systems reviewed are Neg Musculoskeletal: Positive: Pain Physical Exam Narrative GENERAL: Awake, alert, no obvious distress SKIN: Focused skin assessment warm/dry. HEAD: Atraumatic. Normocephalic. EYES: Pupils equal and round. No scleral icterus. No injection or drainage. ENT: No nasal bleeding or discharge. Mucous membranes pink and moist. NECK: Trachea midline. No JVD. CARDIOVASCULAR: Regular rate and rhythm. No murmur appreciated. RESPIRATORY: No accessory muscle use. Clear to auscultation. Breath sounds equal bilaterally. GASTROINTESTINAL: Abdomen soft, non-tender, nondistended. Hepatic and splenic margins not palpable. MUSCULOSKELETAL: No obvious deformities. No clubbing. No cyanosis. No edema. NEUROLOGICAL: Awake and alert. No obvious cranial nerve deficits. Motor grossly within normal limits. Normal speech. PSYCHIATRIC: Appropriate mood and affect; insight and judgment normal. Data Data Last Documented VS Vital Signs Date Time Temp Pulse Resp B/P (MAP) Pulse Ox O2 Delivery O2 Flow Rate FiO2 11/28/17 15:25 11/28/17 14:50 59 14 99 Room Air 11/28/17 13:10 98.4 Orders Orders Complete Blood Count With Diff (11/28/17 13:48) Basic Metabolic Panel (Bmp) (11/28/17 13:48) Sodium Chlor 0.9% 1000 Ml Inj (Ns 1000 M (11/28/17 14:00) Morphine Inj (Morphine Inj) (11/28/17 14:00) Ondansetron Inj (Zofran Inj) (11/28/17 14:00) Ed Discharge Order (11/28/17 14:37) Heparin Central Flush (Heparin Central F (11/28/17 15:15) Heparin Central Flush (Heparin Central F (11/28/17 15:30) Labs Laboratory Tests Test 11/28/17 14:05 White Blood Count 4.8 TH/MM3 Red Blood Count 5.21 MIL/MM3 Hemoglobin 12.0 GM/DL Hematocrit 38.4 % Mean Corpuscular Volume 73.7 FL Mean Corpuscular Hemoglobin 23.1 PG Mean Corpuscular Hemoglobin Concent 31.3 % Red Cell Distribution Width 19.4 % Platelet Count 361 TH/MM3 Mean Platelet Volume 7.5 FL Neutrophils (%) (Auto) 54.3 % Lymphocytes (%) (Auto) 35.4 % Monocytes (%) (Auto) 9.4 % Eosinophils (%) (Auto) 0.4 % Basophils (%) (Auto) 0.5 % Neutrophils # (Auto) 2.6 TH/MM3 Lymphocytes # (Auto) 1.7 TH/MM3 Monocytes # (Auto) 0.5 TH/MM3 Eosinophils # (Auto) 0.0 TH/MM3 Basophils # (Auto) 0.0 TH/MM3 CBC Comment AUTO DIFF Differential Comment AUTO DIFF CONFIRMED Platelet Estimate NORMAL Platelet Morphology Comment NORMAL Ovalocytes 1+ Rouleau PRESENT Blood Urea Nitrogen 11 MG/DL Creatinine 0.57 MG/DL Random Glucose 89 MG/DL Calcium Level 8.9 MG/DL Sodium Level 139 MEQ/L Potassium Level 3.6 MEQ/L Chloride Level 105 MEQ/L Carbon Dioxide Level 25.7 MEQ/L Anion Gap 8 MEQ/L Estimat Glomerular Filtration Rate 138 ML/MIN [facility]DM Medical Decision Making Medical Screen Exam Complete: Yes Emergency Medical Condition: Yes Medical Record Reviewed: Yes Differential Diagnosis Chronic pain, dehydration, left right abdomen Narrative Course 2:35 PM blood test results of back and within acceptable limits. Patient was given a liter of fluid bolus and 4 mg of morphine IV. I'm comfortable discharging her home. She'll have to talk to her oncologist regarding her chronic pain management. Procedures EKG Prior to Arrival: No Diagnosis Primary Impression: Neoplasm related pain (acute) (chronic) Referrals: Primary Care Physician Additional Instructions: Please follow-up with your primary care and your oncologist regarding your pain syndrome. Med/Other Pt SpecificInfo: No Change to Meds Disposition: 01 DISCHARGE HOME Condition: Stable Kervin Vilchis MD Nov 28, 2017 13:41
[2017-11-28] MEDS ORDERED: ONDANSETRON HCL 4 MG/2 ML VIAL IV PUSH ONE (14:00)
[2017-11-28] MEDS ORDERED: SODIUM CHLOR 0.9% 1000 ML INJ 1,000 ML IV ONE (14:00)
[2017-11-28] MEDS ORDERED: MORPHINE SULFATE 2 MG/ML INJ IV PUSH ONE (14:00)
[2017-11-28 14:11] LABS: AUTOMATED NEUTROPHIL # 2.6 TH/MM3 (1.8-7.7); BASOPHIL % 0.5 % (0.0-2.0); EOSINOPHIL % 0.4 % (0.0-4.0); HEMATOCRIT 38.4 % (35.0-46.0); LYMPH % 35.4 % (9.0-44.0); LYMPHOCYTE # 1.7 TH/MM3 (1.0-4.8); MEAN CELL VOLUME 73.7 FL (80.0-100.0); MEAN CORPUSCULAR HEMOGLOBIN 23.1 PG (27.0-34.0); MEAN CORPUSCULAR HGB CONC 31.3 % (32.0-36.0); MEAN PLATELET VOLUME 7.5 FL (7.0-11.0); MONO % 9.4 % (0.0-8.0); MONOCYTE # 0.5 TH/MM3 (0-0.9); NEUT % 54.3 % (16.0-70.0); PLATELET COUNT 361 TH/MM3 (150-450); RED BLOOD COUNT 5.21 MIL/MM3 (4.00-5.30); RED CELL DISTRIBUTION WIDTH 19.4 % (11.6-17.2); WHITE BLOOD COUNT 4.8 TH/MM3 (4.0-11.0)
[2017-11-28 14:22] LABS: CALCIUM 8.9 MG/DL (8.5-10.1)
[2017-11-28 14:23] LABS: BICARBONATE 25.7 MEQ/L (21.0-32.0)
[2017-11-28 14:26] LABS: CREATININE 0.57 MG/DL (0.50-1.00)
[2017-11-28 14:43] LABS: OVALOCYTES 1+ (NORMAL); ROULEAUX PRESENT (NORMAL)
[2017-11-28 14:50] VITALS: BP 131/76; PULSE 59; RESP 14; O2SAT 99
== END 2017-11-28 15:50 | disposition home or self-care (01) ==
LOC: PHED 12:59
DX: G89.3 Neoplasm related pain (acute) (chronic) (principal); C79.51 Secondary malignant neoplasm of bone; F32.9 Major depressive disorder, single episode, unspecified; Z85.44 Personal history of malignant neoplasm of other female genital organs; Z79.01 Long term (current) use of anticoagulants; Z79.891 Long term (current) use of opiate analgesic
CPT/HCPCS: 80048; 85025; 96361; 96374; 96375; 99284; J1642; J2270; J2405; J7030

== ENCOUNTER 2018-03-07 06:33 | Emergency (ER) | payer MEDICARE, MEDICAID ==
[~2018-03-07] VITALS: Ht 162.6 cm; Wt 63.5 kg
[~2018-03-07 06:33] MED LIST changes: +BEVA100P; -CLAR10CA3 PO; +CYCL1CAP4 PO; -DILA8TAB4 PO; +HYDR8TAB PO; -PROC25SU22 RECTAL; -WALKER WHEELS/F1 MIS; -Z.0.NO CURRENT MEDS; -chemo
[2018-03-07 06:35] VITALS: BP 128/84; PULSE 122; RESP 25; TEMP 98.3; O2SAT 98
[2018-03-07] MEDS ORDERED: RESP: ALBUTEROL 2.5 MG/IPRATROPIUM 0.5 MG NEB (SCH) INH ONE (07:30)
--- NOTE | 2018-03-07 07:34 | PD ---
HPI Chief Complaint: Respiratory Symptoms Time Seen by Provider: 07:30 Travel History International Travel<30 days: No Contact w/Intl Traveler<30days: No Traveled to known affect area: No History of Present Illness HPI 47-year-old female patient with history of fallopian tube cancer stage IV, was recently admitted to [facility] for pneumonia, released at 8 PM last night, and states that she probably was not ready to be released, was running fevers, still having shortness of breath, now states that she has thrush to her throat, and had tried to go back into the ER at 10 PM last night at [facility] but they were too busy and after 6 hours weighed, she decided to leave, and comes here because of ongoing problems. She states that it was her primary care doctor, Dr. Betancourt, that had asked her to go back to the hospital. She denies other issues. Modifying Factors: None Associated Signs & Symptoms: Ongoing fevers, cough, shortness of breath Risk Factors: Pneumonia, stage IV cancer PFSH Past Medical History Hx Anticoagulant Therapy: Yes (Xarelto R lung PE) Anxiety: Yes Depression: Yes Heart Rhythm Problems: No Cancer: Yes (DX FALLOPIAN TUBE CA mets to lung, colon, lymph, bone. ) Cardiovascular Problems: No High Cholesterol: No Chemotherapy: Yes (Stopped 2 months ago) Chest Pain: No Congestive Heart Failure: No Diabetes: No Diminished Hearing: No Endocrine: No Gastrointestinal Disorders: Yes (ABDOMINAL TUMOR) Genitourinary: No Hepatitis: No Hiatal Hernia: No Heparin Induced Thrombocytopen: No Hypertension: No Immune Disorder: No Implanted Vascular Access Dvce: Yes (power port right subclavian) Medical other: Yes (PE to R lung) Musculoskeletal: No Neurologic: Yes Psychiatric: Yes Reproductive: Yes (FALLOPIAN TUBE CANCER- point of origin) Respiratory: Yes (Pneumonia) Migraines: No Pneumonia: Yes Radiation Therapy: No Sickle Cell Disease: No Thyroid Disease: No PNEUMOCCOCAL Vaccine (Year): 2 ?: Not Menopausal: Yes : 0 Past Surgical History Abdominal Surgery: Yes (CANCER REMOVED FROM AROUND AORTA & BOWELS) Body Medical Devices: Infussa-port RIGHT CHEST WALL Genitourinary Surgery: Yes (BENIGN & malignant TUMORS REMOVED) Gynecologic Surgery: Yes (MYOMECTOMY) Hysterectomy: Yes Other Surgery: Yes (HYSTERECTOMY, TORN ROTATOR CUFFS, ) Social History Alcohol Use: No Tobacco Use: No (former) Substance Use: Yes (Marijuana CBD) Allergies-Medications (Allergen,Severity, Reaction): Coded Allergies: adhesive (Verified Allergy, Intermediate, SKIN REACTION, 11/28/17) doxorubicin (Verified Allergy, Intermediate, Rash, 11/28/17) latex (Verified Allergy, Mild, Rash, 11/28/17) Reported Meds & Prescriptions Reported Meds & Active Scripts Active Zofran Odt (Ondansetron Odt) 4 Mg Tab 4 Mg SL Q6HR PRN Reported Ambien (Zolpidem Tartrate) 10 Mg Tab 10 Mg PO HS PRN Coq10 (Coenzyme Q10 (Ubidecarenone)) 50 Mg Cap 200 Mg PO DAILY Sorbitol Liq 70 % Char 30 Ml PO DIRECTED PRN Phenergan (Promethazine HCl) 25 Mg Tablet 25 Mg PO DIRECTED PRN Potassium Chloride ER (Potassium Chloride) 8 Meq Cap 8 Meq PO DAILY Dilaudid (Hydromorphone HCl) 8 Mg Tab 16 Mg PO Q4HR PRN Gabapentin 300 Mg Cap 300 Mg PO NOON Gabapentin 600 Mg Tab 600 Mg PO HS Gabapentin 300 Mg Cap 300 Mg PO DAILY Advair Hfa 12 GM Inh (Fluticasone-Salmeterol 12 GM Inh) 230-21 Mcg/Act Aer 2 Puff INH BID Docusate Sodium 100 Mg Cap 100 Mg PO BID Ventolin Hfa 18 GM Inh (Albuterol Sulfate) 90 Mcg/Act Aer 2 Puff INH Q4H Xarelto (Rivaroxaban) 15 Mg Tab 20 Mg PO DAILY Metoclopramide (Metoclopramide HCl) 10 Mg Tab 10 Mg PO Q6HR Methadone (Methadone HCl) 10 Mg Tab 20 Mg PO Q8HR Marinol (Dronabinol) 5 Mg Cap 5 Mg PO BID Xanax (Alprazolam) 1 Mg Tab 2 Mg PO TID PRN Review of Systems Except as stated in HPI: all other systems reviewed are Neg Physical Exam Narrative GENERAL: Well-developed middle-age -[place] female patient currently in mild distress. Awake and oriented 3. SKIN: Focused skin assessment warm/dry. HEAD: Atraumatic. Normocephalic. EYES: Pupils equal and round. No scleral icterus. No injection or drainage. ENT: No nasal bleeding or discharge. Mucous membranes pink and moist. Notable for thrush. Airway intact. NECK: Trachea midline. No JVD. Supple. CARDIOVASCULAR: Regular rate and rhythm. No murmur appreciated. RESPIRATORY: No accessory muscle use. Intermittent wheezing. Breath sounds equal bilaterally. GASTROINTESTINAL: Abdomen soft, non-tender, nondistended. Hepatic and splenic margins not palpable. MUSCULOSKELETAL: No obvious deformities. No clubbing. No cyanosis. No edema. NEUROLOGICAL: Awake and alert. No obvious cranial nerve deficits. Motor grossly within normal limits. Normal speech. PSYCHIATRIC: Appropriate mood and affect; insight and judgment normal. Data Data Last Documented VS Vital Signs Date Time Temp Pulse Resp B/P (MAP) Pulse Ox O2 Delivery O2 Flow Rate FiO2 03/07/18 07:46 100 Nasal Cannula 2.00 03/07/18 07:43 101 26 123/69 (87) 03/07/18 06:35 98.3 Orders Orders Complete Blood Count With Diff (03/07/18 07:30) Comprehensive Metabolic Panel (03/07/18 07:30) Blood Culture (03/07/18 07:30) Iv Access Insert/Monitor (03/07/18 07:30) Electrocardiogram (03/07/18 07:30) Ecg Monitoring (03/07/18 07:30) Oximetry (03/07/18 07:30) Oxygen Administration (03/07/18 07:30) Chest, Single Ap (03/07/18 07:30) Sodium Chloride 0.9% Flush (Ns Flush) (03/07/18 07:30) Albuterol-Ipratropium Neb (Duoneb Neb) (03/07/18 07:30) Morphine Inj (Morphine Inj) (03/07/18 07:45) Morphine Inj (Morphine Inj) (03/07/18 08:02) Nystatin Liq (Mycostatin Liq) (03/07/18 08:30) Ondansetron Inj (Zofran Inj) (03/07/18 08:30) Labs Laboratory Tests Test 03/07/18 07:50 White Blood Count 5.9 TH/MM3 Red Blood Count 4.50 MIL/MM3 Hemoglobin 11.1 GM/DL Hematocrit 34.3 % Mean Corpuscular Volume 76.3 FL Mean Corpuscular Hemoglobin 24.6 PG Mean Corpuscular Hemoglobin Concent 32.3 % Red Cell Distribution Width 18.1 % Platelet Count 289 TH/MM3 Mean Platelet Volume 7.3 FL Neutrophils (%) (Auto) 61.1 % Lymphocytes (%) (Auto) 27.4 % Monocytes (%) (Auto) 9.4 % Eosinophils (%) (Auto) 1.2 % Basophils (%) (Auto) 0.9 % Neutrophils # (Auto) 3.6 TH/MM3 Lymphocytes # (Auto) 1.6 TH/MM3 Monocytes # (Auto) 0.6 TH/MM3 Eosinophils # (Auto) 0.1 TH/MM3 Basophils # (Auto) 0.1 TH/MM3 CBC Comment DIFF FINAL Differential Comment Blood Urea Nitrogen 7 MG/DL Creatinine 0.63 MG/DL Random Glucose 83 MG/DL Total Protein 7.2 GM/DL Albumin 3.1 GM/DL Calcium Level 9.2 MG/DL Alkaline Phosphatase 95 U/L Aspartate Amino Transf (AST/SGOT) 19 U/L Alanine Aminotransferase (ALT/SGPT) 19 U/L Total Bilirubin 0.2 MG/DL Sodium Level 143 MEQ/L Potassium Level 3.6 MEQ/L Chloride Level 104 MEQ/L Carbon Dioxide Level 31.1 MEQ/L Anion Gap 8 MEQ/L Estimat Glomerular Filtration Rate 123 ML/MIN MDM Medical Decision Making Medical Screen Exam Complete: Yes Emergency Medical Condition: Yes Medical Record Reviewed: Yes Interpretation(s) Laboratory Tests Test 03/07/18 07:50 Hemoglobin 11.1 GM/DL (11.6-15.3) Hematocrit 34.3 % (35.0-46.0) Mean Corpuscular Volume 76.3 FL (80.0-100.0) Mean Corpuscular Hemoglobin 24.6 PG (27.0-34.0) Red Cell Distribution Width 18.1 % (11.6-17.2) Monocytes (%) (Auto) 9.4 % (0.0-8.0) Albumin 3.1 GM/DL (3.4-5.0) Last 24 hours Impressions Chest X-Ray 03/07/18 0730 Signed Impressions: Service Date/Time: Wednesday, March 07, 2018 07:49 - CONCLUSION: Mild interstitial prominence in the mid and lower lung zones, new from the prior study. While nonspecific this could represent mild interstitial edema. Nithin Cabrera MD Differential Diagnosis Worsening pneumonia versus bronchitis versus metabolic issues Narrative Course Chest x-ray did not show interval worsening in infiltrates. Lab work was fairly unremarkable. Saturations and vital signs are stable here in the ER. Patient does have some thrush notable which she has had in the past as well. She is requesting something for thrush. She was given some albuterol because of mild wheezing and feels improved with 100% saturations in the ER. She was given nystatin in the ER. At this point, my plan would be to release her with follow-up to primary care physician and oncologist. She states she has an appointment on Thursday. Return for any worsening in symptoms as necessary. The plan has been discussed with her and she states understanding. Diagnosis Primary Impression: Thrush, oral Med/Other Pt SpecificInfo: Prescription(s) given Scripts Nystatin Liq (Nystatin Liq) 100,000 unit/ml Susp 5 ML SWISH-SWAL QID for Infection, #100 ML 0 Refills Prov: Natalya Wynn MD 03/07/18 Disposition: DISCHARGE HOME Condition: Stable Natalya Wynn MD March 07, 2018 07:34
[2018-03-07 07:42] VITALS: O2SAT 99
[2018-03-07 07:43] VITALS: BP 123/69; PULSE 101; RESP 26; O2SAT 98
[2018-03-07] MEDS ORDERED: MORPHINE SULFATE 2 MG/ML SYRINGE IV PUSH ONE (07:45)
[2018-03-07 07:46] VITALS: O2SAT 100
[2018-03-07 08:00] VITALS: BP 122/68; PULSE 100; RESP 20; O2SAT 100
[2018-03-07] MEDS ORDERED: MORPHINE SULFATE 4 MG/ML INJ ONE (08:02)
[2018-03-07] MEDS: SODIUM CHLORIDE 0.9% FLUSH 10 ML FLUSH IVF PRN ×2 (08:05→08:44)
[2018-03-07 08:06] LABS: AUTOMATED NEUTROPHIL # 3.6 TH/MM3 (1.8-7.7); BASOPHIL # 0.1 TH/MM3 (0-0.2); BASOPHIL % 0.9 % (0.0-2.0); EOSINOPHIL # 0.1 TH/MM3 (0-0.4); EOSINOPHIL % 1.2 % (0.0-4.0); HEMATOCRIT 34.3 % (35.0-46.0); HEMOGLOBIN 11.1 GM/DL (11.6-15.3); LYMPH % 27.4 % (9.0-44.0); LYMPHOCYTE # 1.6 TH/MM3 (1.0-4.8); MEAN CELL VOLUME 76.3 FL (80.0-100.0); MEAN CORPUSCULAR HEMOGLOBIN 24.6 PG (27.0-34.0); MEAN CORPUSCULAR HGB CONC 32.3 % (32.0-36.0); MEAN PLATELET VOLUME 7.3 FL (7.0-11.0); MONO % 9.4 % (0.0-8.0); MONOCYTE # 0.6 TH/MM3 (0-0.9); NEUT % 61.1 % (16.0-70.0); PLATELET COUNT 289 TH/MM3 (150-450); RED CELL DISTRIBUTION WIDTH 18.1 % (11.6-17.2); WHITE BLOOD COUNT 5.9 TH/MM3 (4.0-11.0)
[2018-03-07] MEDS ORDERED: AMBI10TA PO (08:17)
[2018-03-07] MEDS ORDERED: DILA8TAB4 PO (08:17)
[2018-03-07] MEDS ORDERED: GABA600T PO (08:17)
[2018-03-07] MEDS ORDERED: VENTAER INH (08:17)
[2018-03-07] MEDS ORDERED: SORB70SO PO (08:17)
[2018-03-07] MEDS ORDERED: GABA300C5 PO ×2 (08:17)
[2018-03-07] MEDS ORDERED: ADVA230A INH (08:17)
[2018-03-07] MEDS ORDERED: DOCU100C15 PO (08:17)
[2018-03-07] MEDS ORDERED: COQ150CA PO (08:17)
[2018-03-07] MEDS ORDERED: POTA8CAP PO (08:17)
[2018-03-07] MEDS ORDERED: PROM25TA10 PO (08:17)
--- NOTE | 2018-03-07 08:18 | RADRPT ---
EXAM DATE/TIME: 03/07/2018 07:49 [facility] COMPARISON: CHEST SINGLE AP, May 26, 2017, 7:01. INDICATIONS : Short of breath. MEDICAL HISTORY : Anticoagulant therapy. Abdomen cancer. Fallopian tube cancer. SURGICAL HISTORY : Hysterectomy. Myomectomy. ENCOUNTER: Initial ACUITY: 1 week PAIN SCORE: 0/10 LOCATION: Bilateral chest FINDINGS: Portable AP view of the chest demonstrates a normal-sized cardiac silhouette. Right chest wall Infuse -a-Port distal tip is in the SVC. EKG lines overlie the patient. There is mild interstitial prominenc e in the mid and lower lung zones bilaterally. No pleural effusion or pneumothorax is identified. Bon es demonstrate no acute finding. Multiple surgical clips overlie the left upper quadrant. CONCLUSION: Mild interstitial prominence in the mid and lower lung zones, new from the prior study. While nonspec ific this could represent mild interstitial edema. Nithin Cabrera MD on March 07, 2018 at 8:14 Board Certified Radiologist. This report was verified electronically.
[2018-03-07 08:23] LABS: ALBUMIN 3.1 GM/DL (3.4-5.0); ALT (GPT) 19 U/L (10-53); AST (GOT) 19 U/L (15-37); BICARBONATE 31.1 MEQ/L (21.0-32.0); BLOOD UREA NITROGEN 7 MG/DL (7-18); CALCIUM 9.2 MG/DL (8.5-10.1); CHLORIDE 104 MEQ/L (98-107); CREATININE 0.63 MG/DL (0.50-1.00); GLOMERULAR FILTRATION RATE 123 ML/MIN (>89); GLUCOSE,RANDOM 83 MG/DL (74-106); SODIUM (NA) 143 MEQ/L (136-145)
[2018-03-07 08:25] LABS: ALKALINE PHOSPHATASE 95 U/L (45-117); TOTAL BILIRUBIN ADULT 0.2 MG/DL (0.2-1.0); TOTAL PROTEIN 7.2 GM/DL (6.4-8.2)
[2018-03-07] MEDS ORDERED: ONDANSETRON HCL 4 MG/2 ML VIAL IV PUSH ONE (08:30)
[2018-03-07] MEDS ORDERED: NYSTATIN SUSP 500,000 U/5 ML CUP SWISH-SWAL ONE (08:30)
[2018-03-07] MEDS ORDERED: NYST1000 SWISH-SWAL (08:47)
[2018-03-07 09:00] VITALS: BP 121/67; PULSE 92; RESP 19; O2SAT 100
--- NOTE | 2018-03-07 13:56 | EKG ---
Date Performed: 03/07/2018 Time Performed: 07:41:57 PTAGE: 47 years EKG: SINUS TACHYCARDIA NONSPECIFIC T-WAVE ABNORMALITY ABNORMAL RHYTHM ECG PREVIOUS TRACING : 05/26/2017 07.45 Since prior tracing, sinus rate has increased. DOCTOR: Ildefonso Fay Interpretating Date/Time 03/07/2018 13:54:48
== END 2018-03-07 09:55 | disposition home or self-care (01) ==
LOC: NEPE 06:33
DX: C57.00 Malignant neoplasm of unspecified fallopian tube (principal); B37.0 Candidal stomatitis; Z79.01 Long term (current) use of anticoagulants; Z87.891 Personal history of nicotine dependence
CPT/HCPCS: 71045; 80053; 85025; 87040; 93005; 94664; 96374; 96375; 99285; J2270; J2405

== ENCOUNTER 2018-03-16 20:35 | Inpatient (IN) | payer MEDICARE, MEDICAID ==
[~2018-03-16] VITALS: Ht 162.6 cm; Wt 65.4 kg
[~2018-03-16 20:35] MED LIST changes: +ADVA230A INH; +AMBI10TA PO; -BEVA100P; +COQ150CA PO; -CYCL1CAP4 PO; -DEXA4TAB PO; +DILA8TAB4 PO; +DOCU100C15 PO; +GABA300C5 PO; -HYDR8TAB PO; +NYST1000 SWISH-SWAL; +POTA8CAP PO; +PROM25TA10 PO; -SENO8.6T5 PO; +SORB70SO PO; +VENTAER INH
[2018-03-16 20:45] VITALS: BP 137/84; PULSE 130; RESP 20; TEMP 101.8; O2SAT 100; O2SAT 97
[2018-03-16 21:15] VITALS: BP 128/98; PULSE 130; RESP 20; O2SAT 100
[2018-03-16] MEDS ORDERED: CEFEPIME INJ 2,000 MG in SODIUM CHLORIDE 0.9% INJ 100 ML IV ONE (21:15)
[2018-03-16] MEDS ORDERED: ONDANSETRON HCL 4 MG/2 ML VIAL IV PUSH ONE (21:15)
[2018-03-16] MEDS ORDERED: SODIUM CHLOR 0.9% 1000 ML INJ 1,000 ML IV ONE ×2 (21:15→23:30)
[2018-03-16] MEDS ORDERED: ACETAMINOPHEN 325 MG TAB PO ONE (21:15)
[2018-03-16 21:22] LABS: AUTOMATED NEUTROPHIL # 6.4 TH/MM3 (1.8-7.7); BASOPHIL # 0.2 TH/MM3 (0-0.2); BASOPHIL % 2.4 % (0.0-2.0); EOSINOPHIL # 0.1 TH/MM3 (0-0.4); EOSINOPHIL % 0.9 % (0.0-4.0); HEMATOCRIT 38.2 % (35.0-46.0); HEMOGLOBIN 12.1 GM/DL (11.6-15.3); LYMPH % 21.3 % (9.0-44.0); LYMPHOCYTE # 2.1 TH/MM3 (1.0-4.8); MEAN CELL VOLUME 76.7 FL (80.0-100.0); MEAN CORPUSCULAR HEMOGLOBIN 24.4 PG (27.0-34.0); MEAN CORPUSCULAR HGB CONC 31.8 % (32.0-36.0); MEAN PLATELET VOLUME 8.3 FL (7.0-11.0); MONO % 9.7 % (0.0-8.0); MONOCYTE # 0.9 TH/MM3 (0-0.9); NEUT % 65.7 % (16.0-70.0); PLATELET COUNT 323 TH/MM3 (150-450); RED BLOOD COUNT 4.98 MIL/MM3 (4.00-5.30); RED CELL DISTRIBUTION WIDTH 18.3 % (11.6-17.2); WHITE BLOOD COUNT 9.7 TH/MM3 (4.0-11.0)
[2018-03-16 21:31] LABS: CHLORIDE 101 MEQ/L (98-107); SODIUM (NA) 135 MEQ/L (136-145)
[2018-03-16 21:34] LABS: CALCIUM 8.7 MG/DL (8.5-10.1)
[2018-03-16 21:35] LABS: ALBUMIN 3.1 GM/DL (3.4-5.0); BLOOD UREA NITROGEN 12 MG/DL (7-18); GLUCOSE,RANDOM 108 MG/DL (74-106); MAGNESIUM 1.5 MG/DL (1.5-2.5)
[2018-03-16 21:36] LABS: INTERNATIONAL NORMALIZED RATIO 1.3 RATIO; PROTHROMBIN TIME - PATIENT 12.8 SEC (9.8-11.6)
[2018-03-16 21:38] LABS: ALT (GPT) 16 U/L (10-53); AST (GOT) 9 U/L (15-37); CREATININE 0.73 MG/DL (0.50-1.00); GLOMERULAR FILTRATION RATE 103 ML/MIN (>89)
[2018-03-16 21:39] LABS: TOTAL BILIRUBIN ADULT 0.5 MG/DL (0.2-1.0); TOTAL PROTEIN 7.2 GM/DL (6.4-8.2)
[2018-03-16 21:40] LABS: LACTIC ACID SEPSIS PROTOCOL 2.2 mmol/L (0.4-2.0)
[2018-03-16 21:41] LABS: ALKALINE PHOSPHATASE 78 U/L (45-117)
[2018-03-16] MEDS ORDERED: HYDROmorphone HCL PF 2 MG/ML VIAL IV PUSH ONE ×2 (21:45→23:30)
[2018-03-16 21:49] VITALS: BP 110/66; PULSE 66; RESP 20; O2SAT 100
[2018-03-16 21:57] LABS: OVALOCYTES 1+ (NORMAL)
--- NOTE | 2018-03-16 22:06 | RADRPT ---
EXAM DATE/TIME: 03/16/2018 21:42 [facility] COMPARISON: CHEST SINGLE AP, March 07, 2018, 7:49. INDICATIONS : Fever. 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 Right lung PE. SURGICAL HISTORY : Hysterectomy. Infusaport. Abdominal surgery to remove cancer from around the aorta and bowels. ENCOUNTER: Initial ACUITY: 1 day PAIN SCORE: 10/10 LOCATION: Bilateral chest FINDINGS: Right chest port is stable in position. There is mild bilateral perihilar interstitial prominence whi ch appears grossly stable. No evidence of alveolar consolidation or pleural effusion. Cardiac contour s are stable and satisfactory. CONCLUSION: No significant change. Mild interstitial prominence Nithin Corral MD on March 16, 2018 at 22:02 Board Certified Radiologist. This report was verified electronically.
[2018-03-16 22:15] VITALS: BP 102/68; PULSE 112; RESP 20; O2SAT 99
--- NOTE | 2018-03-16 22:30 | PD ---
HPI Chief Complaint: Respiratory Symptoms Time Seen by Provider: 21:04 Travel History International Travel<30 days: No Contact w/Intl Traveler<30days: No Traveled to known affect area: No History of Present Illness HPI 47-year-old female presents to the emergency department by private transportation for evaluation of shortness of breath fever and chills with nonproductive cough. 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 Patient reports that she is no longer receiving any chemotherapy radiation therapy and no surgical intervention is recommended. Patient states she met with Dr. Hernandez for the first time last week while hospitalized at [facility] for pneumonia. Patient was reportedly released from the hospital with a prescription for amoxicillin on Thursday evening. Patient states she is continued to feel poorly and presents to the emergency department at this time for further evaluation. Patient complains of shortness of breath. Patient was also hospitalized at the beginning of March at [facility] for pneumonia and was subsequently seen as recently as March 07 in the emergency department after being discharged from [facility] for an evaluation for thrush. Patient states that she is not on hospice and actually is scheduled to be seen by oncologist at [facility] in [place]. Patient states that she has not been doing well and reports very poor support system at home. Patient reports that dropped her off and left her here. Patient states she will go to her appointment on with her mother. Primary care provider is Dr. Betancourt. Patient also has history of pulmonary embolism and takes Xarelto. PFSH Past Medical History Narrative Medical Metastatic fallopian tube cancer pneumonia PE PowerPort hysterectomy myomectomy ; marijuana use; nursing notes reviewed Hx Anticoagulant Therapy: Yes (Xarelto R lung PE) Anxiety: Yes Depression: Yes Heart Rhythm Problems: No Cancer: Yes (DX FALLOPIAN TUBE CA mets to lung, colon, lymph, bone. ) Cardiovascular Problems: No High Cholesterol: No Chemotherapy: Yes (Stopped 2 months ago) Chest Pain: No Congestive Heart Failure: No Diabetes: No Diminished Hearing: No Endocrine: No Gastrointestinal Disorders: Yes (ABDOMINAL TUMOR) Genitourinary: No Hepatitis: No Hiatal Hernia: No Heparin Induced Thrombocytopen: No Hypertension: No Immune Disorder: No Implanted Vascular Access Dvce: Yes (power port right subclavian) Musculoskeletal: No Neurologic: Yes Psychiatric: Yes Reproductive: Yes (FALLOPIAN TUBE CANCER- point of origin) Respiratory: Yes (Pneumonia) Migraines: No Pneumonia: Yes Radiation Therapy: No Sickle Cell Disease: No Thyroid Disease: No Tetanus Vaccination: Unknown Influenza Vaccination: No PNEUMOCCOCAL Vaccine (Year): 2 ?: Unknown Menopausal: Yes : 0 Past Surgical History Abdominal Surgery: Yes (CANCER REMOVED FROM AROUND AORTA & BOWELS) Body Medical Devices: Infussa-port RIGHT CHEST WALL Genitourinary Surgery: Yes (BENIGN & malignant TUMORS REMOVED) Gynecologic Surgery: Yes (MYOMECTOMY) Hysterectomy: Yes Other Surgery: Yes (HYSTERECTOMY, TORN ROTATOR CUFFS, ) Social History Alcohol Use: No Tobacco Use: No (former) Substance Use: Yes (Marijuana CBD) Allergies-Medications (Allergen,Severity, Reaction): Coded Allergies: adhesive (Verified Allergy, Intermediate, SKIN REACTION, 11/28/17) doxorubicin (Verified Allergy, Intermediate, Rash, 11/28/17) latex (Verified Allergy, Mild, Rash, 11/28/17) Reported Meds & Prescriptions Reported Meds & Active Scripts Active Nystatin Liq 100,000 unit/ml Susp 5 Ml SWISH-SWAL QID Zofran Odt (Ondansetron Odt) 4 Mg Tab 4 Mg SL Q6HR PRN Reported Ambien (Zolpidem Tartrate) 10 Mg Tab 10 Mg PO HS PRN Coq10 (Coenzyme Q10 (Ubidecarenone)) 50 Mg Cap 200 Mg PO DAILY Sorbitol Liq 70 % Char 30 Ml PO DIRECTED PRN Potassium Chloride ER (Potassium Chloride) 8 Meq Cap 8 Meq PO DAILY Dilaudid (Hydromorphone HCl) 8 Mg Tab 16 Mg PO Q4HR PRN Gabapentin 300 Mg Cap 300 Mg PO NOON Gabapentin 600 Mg Tab 600 Mg PO HS Gabapentin 300 Mg Cap 300 Mg PO DAILY Advair Hfa 12 GM Inh (Fluticasone-Salmeterol 12 GM Inh) 230-21 Mcg/Act Aer 2 Puff INH BID Docusate Sodium 100 Mg Cap 100 Mg PO BID Ventolin Hfa 18 GM Inh (Albuterol Sulfate) 90 Mcg/Act Aer 2 Puff INH Q4H Xarelto (Rivaroxaban) 15 Mg Tab 20 Mg PO DAILY Metoclopramide (Metoclopramide HCl) 10 Mg Tab 10 Mg PO Q6HR Methadone (Methadone HCl) 10 Mg Tab 20 Mg PO Q8HR Marinol (Dronabinol) 5 Mg Cap 5 Mg PO BID Xanax (Alprazolam) 1 Mg Tab 2 Mg PO TID PRN Review of Systems Except as stated in HPI: all other systems reviewed are Neg General / Constitutional: Positive: Fever, Chills HENT: Positive: Congestion Cardiovascular: No: Chest Pain or Discomfort Respiratory: Positive: Cough, Shortness of Breath, No: Hemoptysis Gastrointestinal: No: Nausea, Vomiting, Abdominal Pain Genitourinary: No: Dysuria, Flank Pain Musculoskeletal: Positive: Myalgias, Arthralgias, Pain (left hip) Skin: No Rash Neurologic: No: Weakness Psychiatric: Positive: Anxiety Hematologic/Lymphatic: No: Lymph Node Enlargement Physical Exam Narrative GENERAL: Well-developed thin female in no acute distress crying mild respiratory distress with heart rate 135, temperature 101.8F, respiratory rate 20 breaths per minute, blood pressure 137/84, room air O2 saturation 97% SKIN: Warm and dry. port site no redness induration or drainage HEAD: Normocephalic. EYES: No scleral icterus. No injection or drainage. NECK: Supple, trachea midline. No JVD or lymphadenopathy. CARDIOVASCULAR: increased Regular rate and rhythm without murmurs, gallops, or rubs. RESPIRATORY: Breath sounds equal bilaterally few crackles left base that clear post-tussively. No accessory muscle use. GASTROINTESTINAL: Abdomen soft, non-tender, nondistended. MUSCULOSKELETAL: No cyanosis, or edema. No lower extremity reproducible pain or edema small ecchymosis to the left anterior lower leg without bony point tenderness or deformity. Radial and dorsalis pedis pulses 2+ to palpation. BACK: Nontender without obvious deformity. No CVA tenderness. Radial and dorsalis pedis pulses 2+ to palpation per Data Data Last Documented VS Vital Signs Date Time Temp Pulse Resp B/P (MAP) Pulse Ox O2 Delivery O2 Flow Rate FiO2 03/16/18 21:49 66 20 110/66 (81) 100 Nasal Cannula 2.00 03/16/18 20:45 101.8 Orders Orders Sepsis Workup Initiated (03/16/18 ) Electrocardiogram (03/16/18 21:08) Complete Blood Count With Diff (03/16/18 21:08) Comprehensive Metabolic Panel (03/16/18 21:08) Prothrombin Time / Inr (Pt) (03/16/18 21:08) Act Partial Throm Time (Ptt) (03/16/18 21:08) Lactic Acid Sepsis Protocol (03/16/18 21:08) Magnesium (Mg) (03/16/18 21:08) Lipase (03/16/18 21:08) Urinalysis - C+S If Indicated (03/16/18 21:08) Blood Culture (03/16/18 21:08) Chest, Single Ap (03/16/18 21:08) Blood Glucose (03/16/18 21:08) Ecg Monitoring (03/16/18 21:08) Iv Access Insert/Monitor (03/16/18:) Oximetry (03/16/18 21:08) Oxygen Administration (03/16/18:08) Acetaminophen (Tylenol) (03/16/18 21:15) Ondansetron Inj (Zofran Inj) (03/16/18 21:15) Cefepime Inj (Maxipime Inj) (03/16/18 21:15) Sodium Chlor 0.9% 1000 Ml Inj (Ns 1000 M (03/16/18 21:15) Hydromorphone Pf Inj (Dilaudid Pf Inj) (03/16/18 21:45) Hip, Uni(Ap&Lat) W Ap Pelvis (03/16/18 ) Tibia/Fibula (Ap/Lat) (03/16/18 ) Hydromorphone Pf Inj (Dilaudid Pf Inj) (03/16/18 23:30) Diet Heart Healthy (03/17/18 Breakfast) Vital Signs (Adult) SHANE.Q4H (03/16/18 23:21) Acetaminophen (Tylenol) (03/16/18 23:30) Sodium Chlor 0.9% 1000 Ml Inj (Ns 1000 M (03/16/18 23:30) Complete Blood Count With Diff (03/17/18 06:00) Lactic Acid (03/17/18 06:00) Admit Order (Ed Use Only) (03/16/18 ) Mechanical Fitter / Telemetry SHANE.Q8H (03/16/18 23:24) Activity Bed Rest (03/16/18 23:24) Notify Dr: Other (03/16/18 23:24) Albuterol-Ipratropium Neb (Duoneb Neb) (03/16/18 23:30) Labs Laboratory Tests Test 03/16/18 21:00 03/16/18 23:05 White Blood Count 9.7 TH/MM3 Red Blood Count 4.98 MIL/MM3 Hemoglobin 12.1 GM/DL Hematocrit 38.2 % Mean Corpuscular Volume 76.7 FL Mean Corpuscular Hemoglobin 24.4 PG Mean Corpuscular Hemoglobin Concent 31.8 % Red Cell Distribution Width 18.3 % Platelet Count 323 TH/MM3 Mean Platelet Volume 8.3 FL Neutrophils (%) (Auto) 65.7 % Lymphocytes (%) (Auto) 21.3 % Monocytes (%) (Auto) 9.7 % Eosinophils (%) (Auto) 0.9 % Basophils (%) (Auto) 2.4 % Neutrophils # (Auto) 6.4 TH/MM3 Lymphocytes # (Auto) 2.1 TH/MM3 Monocytes # (Auto) 0.9 TH/MM3 Eosinophils # (Auto) 0.1 TH/MM3 Basophils # (Auto) 0.2 TH/MM3 CBC Comment AUTO DIFF Differential Comment AUTO DIFF CONFIRMED Ovalocytes 1+ Prothrombin Time 12.8 SEC Prothromb Time International Ratio 1.3 RATIO Activated Partial Thromboplast Time 34.7 SEC Blood Urea Nitrogen 12 MG/DL Creatinine 0.73 MG/DL Random Glucose 108 MG/DL Total Protein 7.2 GM/DL Albumin 3.1 GM/DL Calcium Level 8.7 MG/DL Magnesium Level 1.5 MG/DL Alkaline Phosphatase 78 U/L Aspartate Amino Transf (AST/SGOT) 9 U/L Alanine Aminotransferase (ALT/SGPT) 16 U/L Total Bilirubin 0.5 MG/DL Sodium Level 135 MEQ/L Potassium Level 3.5 MEQ/L Chloride Level 101 MEQ/L Carbon Dioxide Level 24.0 MEQ/L Anion Gap 10 MEQ/L Estimat Glomerular Filtration Rate 103 ML/MIN Lactic Acid Level 2.2 mmol/L Lipase 70 U/L Urine Color YELLOW Urine Turbidity CLEAR Urine pH 6.0 Urine Specific [place] LESS/EQUAL 1.005 Urine Protein NEG mg/dL Urine Glucose (UA) NEG mg/dL Urine Ketones NEG mg/dL Urine Occult Blood NEG Urine Nitrite NEG Urine Bilirubin NEG Urine Urobilinogen 0.2 MG/DL Urine Leukocyte Esterase NEG Urine WBC 0-2 /hpf Urine Squamous Epithelial Cells 0-5 /hpf Microscopic Urinalysis Comment CULT NOT INDICATED MDM Medical Decision Making Medical Screen Exam Complete: Yes Emergency Medical Condition: Yes Medical Record Reviewed: Yes Interpretation(s) lactic acid: 2.2, elevated Last Impressions Chest X-Ray 03/16/182107 Signed Impressions: Service Date/Time: Friday, March 16, 2018 21:42 - CONCLUSION: No significant change. Mild interstitial prominence Nithin Corral MD CBC & BMP Diagram 03/16/18 21:00 Total Protein 7.2, Albumin 3.1 L, Calcium Level 8.7, Magnesium Level 1.5, Alkaline Phosphatase 78, Aspartate Amino Transf (AST/SGOT) 9 L, Alanine Aminotransferase (ALT/SGPT) 16, Total Bilirubin 0.5 Vital Signs Date Time Temp Pulse Resp B/P (MAP) Pulse Ox O2 Delivery O2 Flow Rate FiO2 03/16/18 21:49 66 20 110/66 (81) 100 Nasal Cannula 2.00 03/16/18 21:49 100 Nasal Cannula 2.00 03/16/18 21:00 130 24 100 Nasal Cannula 2.00 03/16/18 20:45 101.8 130 20 137/84 (101) 97 UA: wnl Differential Diagnosis Dyspnea, pneumonia, PE, CHF, pericardial effusion, sepsis, electrolyte disturbance, arrhythmia Narrative Course Patient placed on rn cardiac rehab IV access obtained specimens collected and sent for resulting patient administered normal saline bolus Dilaudid 1 mg IV Zofran 4 mg IV cefepime 2 gm IV Patient administered acetaminophen for fever blood cultures obtained lactic acid obtained CBC with automated differential values grossly within normal limits; white count is not elevated no left shift; patient's lactic acid however is elevated at 2.2 Metabolic panel grossly within normal limits Urinalysis pending chest x-ray reveals no lobar infiltrate mild interstitial prominence which is unchanged from imaging study 03/07/18 Imaging of the hip and pelvis reveal no acute bony abnormality no lytic lesions identified and no acute findings for left tibia-fibula imaging Patient is symptomatically improved after IV fluids pain medication has received first dose of antibiotic has been on outpatient amoxicillin after reported hospitalization for pneumonia last week. Will admit patient for ongoing IV antibiotic therapy. Patient this time meet SIRS criteria and possibly sepsis criteria and although no clear source of infection at this time , concern for bacteremia and failed outpatient therapy. Sepsis Criteria SIRS Criteria (2 or more): Temp > 100.9 or < 96.8, Heart rate over 90 Sepsis Criteria (SIRS+source): Infect source susp/known (suspect pulmonary) Severe Sepsis (+one): Lactate >2 Physician Communication Physician Communication call placed to [facility] service for Dr Betancourt -discussed with Dr Jacobo --admit Diagnosis Primary Impression: Acute febrile illness Additional Impressions: Sepsis Fallopian tube carcinoma Admitting Information Admitting Physician Requests: Admit Ame Rodriguez MD March 16, 2018 22:30
--- NOTE | 2018-03-16 23:07 | RADRPT ---
EXAM DATE/TIME: 03/16/2018 22:47 [facility] COMPARISON: ABDOMEN FLAT & UPRIGHT, December 27, 2016, 3:55. INDICATIONS : Left hip pain. 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 Right lung PE. SURGICAL HISTORY : Hysterectomy. Infusaport. Abdominal surgery to remove cancer from around the aorta and bowels. ENCOUNTER: Initial PAIN SCORE: 10/10 LOCATION: Left hip. FINDINGS: Heterogeneous sclerotic density in the femoral heads bilaterally. No evidence of fracture or dislocat ion. Bony pelvis is intact and unremarkable. CONCLUSION: Symmetric sclerotic heterogeneity to the density of the femoral heads of undetermined significance. F ollowup with outpatient hip and pelvic MRI may be beneficial if clinically indicated. No definite acute bony findings. Nithin Corral MD on March 16, 2018 at 23:02 Board Certified Radiologist. This report was verified electronically.
--- NOTE | 2018-03-16 23:08 | RADRPT ---
EXAM DATE/TIME: 03/16/2018 22:47 [facility] COMPARISON: No previous studies available for comparison. INDICATIONS : Left lower leg pain. 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 Right lung PE. SURGICAL HISTORY : Hysterectomy. Infusaport. Abdominal surgery to remove cancer from around the aorta and bowels. ENCOUNTER: Initial PAIN SCORE: 10/10 LOCATION: Left lower leg. FINDINGS: Two view examination of the left tibia demonstrates no evidence of fracture or dislocation. Bony min eralization is normal. The soft tissue structures are intact. CONCLUSION: Unremarkable examination of the left tibia. Nithin Corral MD on March 16, 2018 at 23:05 Board Certified Radiologist. This report was verified electronically.
[2018-03-16 23:10] VITALS: BP 117/76; PULSE 100; RESP 20; O2SAT 99
[2018-03-16 23:25] LABS: BILIRUBIN, URINE NEG (NEG); BLOOD, URINE NEG (NEG); GLUCOSE,URINE NEG (NEG); KETONE, URINE NEG (NEG); NITRITE,URINE NEG (NEG); URINE COLOR YELLOW (YELLW/STRAW); URINE LEUKOCYTE ESTERASE NEG (NEG)
[2018-03-16] MEDS ORDERED: ACETAMINOPHEN 325 MG TAB PO PRN (23:30)
[2018-03-16 23:35] LABS: SQUAMOUS EPITHELIAL CELL URINE 0-5 /hpf (0-5); WBC, URINE 0-2 /hpf (0-5)
[2018-03-16 23:40] VITALS: O2SAT 98
[2018-03-16] MEDS: RESP: ALBUTEROL 2.5 MG/IPRATROPIUM 0.5 MG NEB (PRN) NEB (23:40)
[2018-03-16] MEDS ORDERED: HYDROmorphone HCL PF 4 MG/ML VIAL IV PUSH ONE (23:45)
[2018-03-17] VITALS (13 sets, daily range): BP systolic 97–126; BP diastolic 55–84; PULSE 83–118; RESP 19–21; TEMP 97.4–99.2; O2SAT 98–100
[2018-03-17] MEDS ORDERED: ALPRAZolam 1 MG TAB PO PRN (00:30)
[2018-03-17] MEDS ORDERED: HYDROmorphone HCL PF 4 MG/ML VIAL IV PUSH PRN (00:30)
[2018-03-17] MEDS: HYDROmorphone HCL PF 0.5 MG/0.5 ML SYRINGE IV PUSH PRN ×3 (01:37→10:01)
[2018-03-17] MEDS: RESP: ALBUTEROL 2.5 MG/IPRATROPIUM 0.5 MG NEB (PRN) NEB ×2 (06:04→10:29)
[2018-03-17 07:15] LABS: AUTOMATED NEUTROPHIL # 3.9 TH/MM3 (1.8-7.7); BASOPHIL % 0.2 % (0.0-2.0); EOSINOPHIL # 0.1 TH/MM3 (0-0.4); EOSINOPHIL % 1.7 % (0.0-4.0); HEMATOCRIT 29.9 % (35.0-46.0); HEMOGLOBIN 10.1 GM/DL (11.6-15.3); LYMPH % 24.9 % (9.0-44.0); LYMPHOCYTE # 1.7 TH/MM3 (1.0-4.8); MEAN CORPUSCULAR HEMOGLOBIN 25.8 PG (27.0-34.0); MEAN PLATELET VOLUME 6.9 FL (7.0-11.0); MONO % 14.8 % (0.0-8.0); NEUT % 58.4 % (16.0-70.0); PLATELET COUNT 272 TH/MM3 (150-450); RED BLOOD COUNT 3.93 MIL/MM3 (4.00-5.30); RED CELL DISTRIBUTION WIDTH 18.5 % (11.6-17.2); WHITE BLOOD COUNT 6.7 TH/MM3 (4.0-11.0)
[2018-03-17] MEDS ORDERED: ZOLPIDEM TARTRATE 10 MG TAB PO PRN (10:30)
[2018-03-17] MEDS: DRONABINOL 5 MG CAP PO SCH ×2 (10:30→20:40)
[2018-03-17] MEDS: GABAPENTIN 300 MG CAP PO SCH (11:31)
[2018-03-17] MEDS: METOCLOPRAMIDE HCL 10 MG TAB PO SCH ×3 (11:32→22:47)
[2018-03-17] MEDS: HYDROmorphone HCL 4 MG TAB PO PRN ×3 (11:32→20:41)
[2018-03-17] MEDS: DOCUSATE SODIUM 100 MG CAP PO SCH ×2 (11:32→20:39)
--- NOTE | 2018-03-17 12:50 | HHI.HP ---
[facility] Fransico Betancourt MD Admission Diagnosis febrile illness/sirs/sepsis; fallopian carcinoma Diagnoses: Chief Complaint: Dyspnea on exertion and bone pain Travel History International Travel<30 Days: No Contact w/Intl Traveler <30 Da: No Traveled to Known Affected Are: No Sepsis Criteria SIRS Criteria (2 or more): Heart rate over 90, RR > 20 or PaCO2 < 32 Criteria Outcome: Meets SIRS criteria History of Present Illness This patient is a 47-year-old female unfortunately was diagnosed 6 years ago with metastatic fallopian tube cancer and given 6 months to live. She has survived that timeframe and undergone chemotherapy and radiation. She has had debulking surgery and no further intervention is recommended. Patient follows up with oncology services in [facility]. Recently she was in the hospital in [facility] for pneumonia and was discharged from that facility Thursday. She reports that she had a nebulizer at home but left in the hospital and has been without her respiratory treatments over the last several days. She comes to our emergency room with increased shortness of breath and increased work of breathing with evidence of poor function at home. She has had increased pain as well. She does follow-up with her local primary care doctor but most of her follow-up has been in the [facility] in [place]. She has a history of pulmonary embolism and was taking Xarelto without difficulty. Here she has received IV hydration and she was quite dehydrated on exam. X-ray has been acutely unremarkable. Patient shortness of breath is improved with good pain control and nebulizers. She reports improved improvement with her high-dose Dilaudid and methadone for pain. She also takes Neurontin for pain management. At this point she would like to consider comfort care measures and hospice/ palliative consult have been requested by the patient and her family. Records are pending. Review of Systems Constitutional: DENIES: Diaphoretic episodes, Fatigue, Fever, Weight gain, Weight loss, Chills, Dizziness, Change in appetite, Night Sweats Endocrine: DENIES: Abnorml menstrual pattern, Heat/cold intolerance, Polydipsia , Polyuria, Polyphagia Eyes: DENIES: Blurred vision, Diplopia, Eye inflammation, Eye pain, Vision loss , Photosensitivity, Double Vision Ears, nose, mouth, throat: DENIES: Tinnitus, Hearing loss, Vertigo, Nasal discharge, Oral lesions, Throat pain, Hoarseness, Ear Pain, Running Nose, Epistaxis, Sinus Pain, Toothache, Odynophagia Respiratory: COMPLAINS OF: Shortness of breath, DENIES: Apneas, Cough, Snoring , Wheezing, Hemoptysis, Sputum production Cardiovascular: COMPLAINS OF: Dyspnea on Exertion, DENIES: Chest pain, Palpitations, Syncope, PND, Lower Extremity Edema, Orthopnea, Claudication Gastrointestinal: DENIES: Abdominal pain, Black stools, Bloody stools, Constipation, Diarrhea, Nausea, Vomiting, Difficulty Swallowing, Anorexia Genitourinary: DENIES: Abnormal vaginal bleeding, Dysmenorrhea, Dyspareunia, Sexual dysfunction, Urinary frequency, Urinary incontinence, Urgency, Hematuria , Dysuria, Nocturia, Vaginal discharge Musculoskeletal: COMPLAINS OF: Joint pain, Back pain, DENIES: Muscle aches, Stiffness, Joint Swelling, Neck pain Integumentary: DENIES: Abnormal pigmentation, Pruritus, Rash, Nail changes, Breast masses, Breast skin changes, Nipple discharge Hematologic/lymphatic: DENIES: Bruising, Lymphadenopathy Immunologic/allergic: DENIES: Eczema, Urticaria Neurologic: DENIES: Abnormal gait, Headache, Localized weakness, Paresthesias, Seizures, Speech Problems, Tremor, Poor Balance Psychiatric: DENIES: Anxiety, Confusion, Mood changes, Depression, Hallucinations, Agitation, Suicidal Ideation, Homicidal Ideation, Delusions Except as stated in HPI: all other systems reviewed are Neg Past Family Social History Past Medical History Advanced fallopian tube malignancy currently in follow-up at [facility] status post chemotherapy and radiation with increased disease and decreased function Past Surgical History Port right subclavian, myomectomy and extensive malignancy debulking surgery, hysterectomy, rotator cuff surgery Reported Medications Reviewed in the EMR Allergies: Coded Allergies: adhesive (Verified Allergy, Intermediate, SKIN REACTION, 11/28/17) doxorubicin (Verified Allergy, Intermediate, Rash, 11/28/17) latex (Verified Allergy, Mild, Rash, 11/28/17) Active Ordered Medications Reviewed in the EMR Family History Hypertension and diabetes in her mother Social History No tobacco or alcohol dependency, lives with her mother Prescription Marinol Physical Exam Vital Signs Vital Signs Date Time Temp Pulse Resp B/P (MAP) Pulse Ox O2 Delivery O2 Flow Rate FiO2 03/17/18 08:00 98.1 85 20 102/55 (71) 99 03/17/18 07:18 86 03/17/18 06:51 20 03/17/18 00:52 118 20 105/76 (86) 99 Nasal Cannula 2.00 03/17/18 00:48 98.9 66 20 97/64 (75) 100 Nasal Cannula 2.00 03/17/18 00:40 93 03/17/18 00:38 97.4 83 20 107/65 (79) 98 03/17/18 00:15 20 03/17/18 00:00 88 20 118/72 (87) 99 03/16/18 23:40 98 Nasal Cannula 1.00 03/16/18 23:10 100 20 117/76 (90) 99 03/16/18 22:15 112 20 102/68 (79) 99 Nasal Cannula 2.00 03/16/18 21:49 66 20 110/66 (81) 100 Nasal Cannula 2.00 03/16/18 21:49 100 Nasal Cannula 2.00 03/16/18 21:15 130 20 128/98 (108) 100 Nasal Cannula 2.00 03/16/18 21:00 130 24 100 Nasal Cannula 2.00 03/16/18 20:45 130 20 137/84 (101) 100 03/16/18 20:45 101.8 130 20 137/84 (101) 97 Physical Exam GENERAL: This is a frail and pale female complaining of pain SKIN: No rashes, ecchymoses or lesions. Cool and dry. HEAD: Atraumatic. Normocephalic. No temporal or scalp tenderness. EYES: Pupils equal round and reactive. Extraocular motions intact. No scleral icterus. No injection or drainage. ENT: Nose without bleeding, purulent drainage or septal hematoma. Throat without erythema, tonsillar hypertrophy or exudate. Uvula midline. Airway patent. NECK: Trachea midline. No JVD or lymphadenopathy. Supple, nontender, no meningeal signs. CARDIOVASCULAR: Right-sided chest port, regular rate and rhythm without murmurs , gallops, or rubs. RESPIRATORY: Clear to auscultation. Breath sounds equal bilaterally. No wheezes , rales, or rhonchi. GASTROINTESTINAL: Abdomen soft, non-tender, nondistended. No hepato-splenomegaly , or palpable masses. No guarding. MUSCULOSKELETAL: Extremities without clubbing, cyanosis, or edema. No joint tenderness, effusion, or edema noted. No calf tenderness. Negative Homans sign bilaterally. NEUROLOGICAL: Awake and alert. Cranial nerves II through XII intact. Motor and sensory grossly within normal limits. Five out of 5 muscle strength in all muscle groups. Normal speech. Laboratory Laboratory Tests Test 03/16/18 21:00 03/16/18 23:05 03/16/18 23:55 03/17/18 07:00 White Blood Count 9.7 6.7 Red Blood Count 4.98 3.93 Hemoglobin 12.1 10.1 Hematocrit 38.2 29.9 Mean Corpuscular Volume 76.7 76.0 Mean Corpuscular Hemoglobin 24.4 25.8 Mean Corpuscular Hemoglobin Concent 31.8 34.0 Red Cell Distribution Width 18.3 18.5 Platelet Count 323 272 Mean Platelet Volume 8.3 6.9 Neutrophils (%) (Auto) 65.7 58.4 Lymphocytes (%) (Auto) 21.3 24.9 Monocytes (%) (Auto) 9.7 14.8 Eosinophils (%) (Auto) 0.9 1.7 Basophils (%) (Auto) 2.4 0.2 Neutrophils # (Auto) 6.4 3.9 Lymphocytes # (Auto) 2.1 1.7 Monocytes # (Auto) 0.9 1.0 Eosinophils # (Auto) 0.1 0.1 Basophils # (Auto) 0.2 0.0 CBC Comment AUTO DIFF DIFF FINAL Differential Comment AUTO DIFF CONFIRMED Ovalocytes 1+ Prothrombin Time 12.8 Prothromb Time International Ratio 1.3 Activated Partial Thromboplast Time 34.7 Blood Urea Nitrogen 12 Creatinine 0.73 Random Glucose 108 Total Protein 7.2 Albumin 3.1 Calcium Level 8.7 Magnesium Level 1.5 Alkaline Phosphatase 78 Aspartate Amino Transf (AST/SGOT) 9 Alanine Aminotransferase (ALT/SGPT) 16 Total Bilirubin 0.5 Sodium Level 135 Potassium Level 3.5 Chloride Level 101 Carbon Dioxide Level 24.0 Anion Gap 10 Estimat Glomerular Filtration Rate 103 Lactic Acid Level 2.2 0.9 0.7 Lipase 70 Urine Color YELLOW Urine Turbidity CLEAR Urine pH 6.0 Urine Specific [place] LESS/EQUAL 1.005 Urine Protein NEG Urine Glucose (UA) NEG Urine Ketones NEG Urine Occult Blood NEG Urine Nitrite NEG Urine Bilirubin NEG Urine Urobilinogen 0.2 Urine Leukocyte Esterase NEG Urine WBC 0-2 Urine Squamous Epithelial Cells 0-5 Microscopic Urinalysis Comment CULT NOT INDICATED Date/Time Source Procedure Growth Status 03/16/18 21:10 Blood Peripheral Aerobic Blood Culture - Preliminary NO GROWTH IN 1 DAY Resulted 03/16/18 21:10 Blood Peripheral Anaerobic Blood Culture - Preliminary NO GROWTH IN 1 DAY Resulted Result Diagram: 03/17/18 0700 03/16/18 2100 Imaging Last Impressions Chest X-Ray 03/16/182107 Signed Impressions: Service Date/Time: Friday, March 16, 2018 21:42 - CONCLUSION: No significant change. Mild interstitial prominence Nithin Corral MD Tibia/Fibula X-Ray 03/16/18 0000 Signed Impressions: Service Date/Time: Friday, March 16, 2018 22:47 - CONCLUSION: Unremarkable examination of the left tibia. Nithin Corral MD Hip and Pelvis X-Ray 03/16/18 0000 Signed Impressions: Service Date/Time: Friday, March 16, 2018 22:47 - CONCLUSION: Symmetric sclerotic heterogeneity to the density of the femoral heads of undetermined significance. Followup with outpatient hip and pelvic MRI may be beneficial if clinically indicated. No definite acute bony findings. Nithin Corral MD Septic Shock Reassessment Septic shock perfusion: reassessment completed Caprini VTE Risk Assessment Caprini VTE Risk Assessment: Mod/High Risk (score >= 2) VTE Pharm Contraindication: Coagulopathy,INR elevated Caprini Risk Assessment Model Point Value = 1 Point Value = 2 Point Value = 3 Point Value = 5 Age 41-60 Minor surgery BMI > 25 kg/m2 Swollen legs Varicose veins or History of unexplained or recurrent spontaneous Oral contraceptives or hormone replacement Sepsis (< 1 month) Serious lung disease, including pneumonia (< 1 month) Abnormal pulmonary function Acute myocardial infarction Congestive heart failure (< 1 month) History of inflammatory bowel disease Medical patient at bed rest Age 61-74 Arthroscopic surgery Major open surgery (> 45 min) Laparoscopic surgery (> 45 min) Malignancy Confined to bed (> 72 hours) Immobilizing plaster cast Central venous access Age >= 75 History of VTE Family history of VTE Factor V Leiden Prothrombin [id number] Lupus anticoagulant Anticardiolipin antibodies Elevated serum homocysteine Heparin-induced thrombocytopenia Other congenital or acquired thrombophilia Stroke (< 1 month) Elective arthroplasty Hip, pelvis, or leg fracture Acute spinal cord injury (< 1 month) Prophylaxis Regimen Total Risk Factor Score Risk Level Prophylaxis Regimen 0-1 Low Early ambulation 2 Moderate Order ONE of the following: *Sequential Compression Device (SCD) *Heparin 5000 units SQ BID 3-4 Higher Order ONE of the following medications: *Heparin 5000 units SQ TID *Enoxaparin/Lovenox 40 mg SQ daily (WT < 150 kg, CrCl > 30 mL/min) *Enoxaparin/Lovenox 30 mg SQ daily (WT < 150 kg, CrCl > 10-29 mL/min) *Enoxaparin/Lovenox 30 mg SQ BID (WT < 150 kg, CrCl > 30 mL/min) AND/OR *Sequential Compression Device (SCD) 5 or more Highest Order ONE of the following medications: *Heparin 5000 units SQ TID (Preferred with Epidurals) *Enoxaparin/Lovenox 40 mg SQ daily (WT < 150 kg, CrCl > 30 mL/min) *Enoxaparin/Lovenox 30 mg SQ daily (WT < 150 kg, CrCl > 10-29 mL/min) *Enoxaparin/Lovenox 30 mg SQ BID (WT < 150 kg, CrCl > 30 mL/min) AND *Sequential Compression Device (SCD) Assessment and Plan Problem List: (1) Fallopian tube carcinoma ICD Code: C57.00 - Malignant neoplasm of unspecified fallopian tube Status: Acute Plan: Patient with a significant amount of metastases attic disease and significant pain with hypoxemia. Patient will benefit from palliative care consultation and this will be obtained. I did discuss at length with the patient regarding this. She also will request a hospice consultation. Most of her follow-up has been in [place] at the [facility] and she would like local evaluation by hospice and palliative teams For now we will continue with patient's pain regimen of high-dose Dilaudid and methadone. Patient also on Marinol and gabapentin Assessment and Plan Patient will continue Xarelto for history of pulmonary embolism Shelby Hatch MD March 17, 2018 12:50
[2018-03-17] MEDS ORDERED: RIVAROXABAN 15 MG TAB PO SCH (13:00)
[2018-03-17] MEDS ORDERED: ONDANSETRON ODT 4 MG TAB PO PRN (13:15)
[2018-03-17] MEDS: RIVAROXABAN 20 MG TAB PO SCH (13:40)
[2018-03-17] MEDS: METHADONE HCL 10 MG TAB PO SCH ×2 (13:40→22:48)
[2018-03-17] MEDS: NYSTATIN SUSP 500,000 U/5 ML CUP SWISH-SWAL SCH ×3 (13:41→20:38)
[2018-03-17] MEDS ORDERED: LEVOFLOXACIN 750 MG PREMIX INJ 150 ML IV SCH (14:00)
[2018-03-17] MEDS: RESP: ALBUTEROL 2.5 MG/IPRATROPIUM 0.5 MG NEB (SCH) NEB ×2 (14:35→20:07)
[2018-03-17] MEDS ORDERED: RESP: ALBUTEROL 2.5 MG/IPRATROPIUM 0.5 MG NEB (PRN) NEB (15:15)
--- NOTE | 2018-03-17 16:41 | PD.CONS ---
Consult Service Palliative Care Consult Requested By Dr. Shelby Hatch . Primary Care Physician Fransico Betancourt MD Reason for Consultation a. To assist with evaluation and management of symptoms including: Pain, spasm, dyspnea, anxiety b. To assist medical decision maker(s) with: better understanding of current medical conditions; weighing benefits/burdens of medical treatment options; making medical treatment decisions. 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 Her last. She has been following with oncology services in [facility] and has survived that timeframe. She has undergone chemotherapy and radiation, debulking surgery and at this time no further intervention is recommended. Chemotherapy was done 2 months ago. She is scheduled to have a CT scan tomorrow at [facility], which she has rescheduled. She was recently seen in [facility] for pneumonia and discharged last Thursday without any respiratory treatments available. She states she was still febrile when discharged, still having dyspnea and now states that she has thrush to her throat. She tried to return to [facility] ED at 10 PM but they were too busy to see her and after she waited 6 hours decided to leave and came to [place]. She presented to [facility] on 03/16/18 with increased shortness of breath and increased work of breathing. She does follow up with Dr. Betancourt, her local PCP but all of her oncology work has been done at [facility] in [place]. 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 She has requested a hospice/palliative care consult to assist her in symptom management and goals of care. ED course: * Laboratory: WBC 9.7, Hgb 12.1, HCT 38.2, platelets 323, sodium 135, potassium 3.5, BUN 12, creatinine 0.73, magnesium 1.5, alkaline phosphatase 78, AST 9, ALT 16, urinalysis was negative. * Radiology: Chest x-ray showed no significant change from prior exam. Tib-fib x-ray was unremarkable, hip and pelvis x-ray showed symmetric, sclerotic heterogeneity to the density of the femoral heads of undetermined significance. At this evaluation she has multiple family members in the room to include her mother and sister, who she states are her decision-makers. She states that she does have living will and healthcare surrogate paperwork at home and will have it brought in. She wishes to go home and live her life to the best of her ability, but is aware of her terminal diagnosis. She has been told by [facility] that no further treatment is available but is scheduled to follow-up with them for CT scan to gauge his progression. She is requesting a local oncologist that can communicate with [facility] to prevent her from having to make the long drive in her weakened condition. During this visit she experienced a right foot /lower leg spasm that hyperextended her toes towards her head which relieved itself after several minutes of discomfort. She states those occur frequently. She is mildly dyspneic at rest worsening with conversation. She states that her pain is primarily located in her bones and is causing chest pain around her rib cage, sharp in character, intermittent, and increasing, in frequency, increasing in duration and progressively involving a larger area. She is visibly anxious and will not make a decision on CODE STATUS. She states that she would like everything done but leaves the remainder of the decisions regarding how long and what interventions she would want up to her family. I have offered a 5 wishes booklet to assist her in making some of these decisions on a question by question basis. This information was conveyed to the hospice clinical marketer, Jose, who has been consulted to see her and he will bring her the 5 wishes booklet. . Function/Cognitive Trajectory She is able to live at home with some assistance from her family, independent in her ADLs but becomes very weak with activity. She is chronically short of breath and this limits her activity. She has frequent muscle spasms and pain in "every bone in her body". Cognitively she is still sharp but visibly anxious. . Review of Systems Constitutional: COMPLAINS OF: Fatigue, Weight loss, Change in appetite, Pain, Generalized weakness Endocrine: COMPLAINS OF: Heat/cold intolerance Eyes: DENIES: Blurred vision, Diplopia, Eye inflammation, Eye pain, Vision loss , Photosensitivity, Double Vision, Blind spots Ears, nose, mouth, throat: COMPLAINS OF: Oral lesions Respiratory: COMPLAINS OF: Shortness of breath Cardiovascular: COMPLAINS OF: Chest pain, Dyspnea on Exertion Genitourinary: DENIES: Abnormal vaginal bleeding, Dysmenorrhea, Dyspareunia, Sexual dysfunction, Urinary frequency, Urinary incontinence, Urgency, Hematuria , Dysuria, Nocturia, Vaginal discharge, Hesitancy, Dribbling, Decreased stream Musculoskeletal: COMPLAINS OF: Muscle aches (Spasms) Integumentary: DENIES: Abnormal pigmentation, Pruritus, Rash, Nail changes, Breast masses, Breast skin changes, Nipple discharge, Nodules, Tumors, Excessive dryness, Non-healing sores Hematologic/Lymphatics: DENIES: Bruising, Lymphadenopathy, Prolonged bleed w/ proced, History of transfusions Immunologic/Allergic: DENIES: Eczema, Urticaria Neurologic: DENIES: Abnormal gait, Headache, Localized weakness, Paresthesias, Seizures, Speech Problems, Tremor, Poor Balance, Change in smell or taste Psychiatric: COMPLAINS OF: Anxiety Past Family Social History Coded Allergies: adhesive (Verified Allergy, Intermediate, SKIN REACTION, 11/28/17) doxorubicin (Verified Allergy, Intermediate, Rash, 11/28/17) latex (Verified Allergy, Mild, Rash, 11/28/17) Past Medical History Advanced fallopian tube malignancy currently in follow-up at [facility] status post chemotherapy and radiation with increased disease and decreased function Past Surgical History Port right subclavian, myomectomy and extensive malignancy debulking surgery, hysterectomy, rotator cuff surgery Reported Medications Reported Meds & Active Scripts Active Nystatin Liq 100,000 unit/ml Susp 5 Ml SWISH-SWAL QID Zofran Odt (Ondansetron Odt) 4 Mg Tab 4 Mg SL Q6HR PRN Reported Ambien (Zolpidem Tartrate) 10 Mg Tab 10 Mg PO HS PRN Coq10 (Coenzyme Q10 (Ubidecarenone)) 50 Mg Cap 200 Mg PO DAILY Sorbitol Liq 70 % Char 30 Ml PO DIRECTED PRN Potassium Chloride ER (Potassium Chloride) 8 Meq Cap 8 Meq PO DAILY Dilaudid (Hydromorphone HCl) 8 Mg Tab 16 Mg PO Q4HR PRN Gabapentin 300 Mg Cap 300 Mg PO NOON Gabapentin 600 Mg Tab 600 Mg PO HS Gabapentin 300 Mg Cap 300 Mg PO DAILY Advair Hfa 12 GM Inh (Fluticasone-Salmeterol 12 GM Inh) 230-21 Mcg/Act Aer 2 Puff INH BID Docusate Sodium 100 Mg Cap 100 Mg PO BID Ventolin Hfa 18 GM Inh (Albuterol Sulfate) 90 Mcg/Act Aer 2 Puff INH Q4H Xarelto (Rivaroxaban) 15 Mg Tab 20 Mg PO DAILY Metoclopramide (Metoclopramide HCl) 10 Mg Tab 10 Mg PO Q6HR Methadone (Methadone HCl) 10 Mg Tab 20 Mg PO Q8HR Marinol (Dronabinol) 5 Mg Cap 5 Mg PO BID Xanax (Alprazolam) 1 Mg Tab 2 Mg PO TID PRN . Current Medications Medications (Trade) Dose Ordered Sig/Stephania Route Start Time Stop Time Status Last Admin (Tylenol) 650 mg Q4H PRN PO 03/16/18 23:30 (Xanax) 2 mg TID PRN PO 03/17/18 00:30 03/17/18 13:41 (Colace) 100 mg BID PO 03/17/18 10:30 03/17/18 11:32 (Marinol) 5 mg BID PO 03/17/18 10:30 03/17/18 10:30 (Neurontin) 300 mg DAILY PO 03/17/18 10:30 03/17/18 11:31 (Neurontin) 300 mg DAILY PO 03/18/18 13:00 (Neurontin) 600 mg HS PO 03/17/18 21:00 (Dilaudid) 16 mg Q4HR PRN PO 03/17/18 10:30 03/17/18 11:32 (Dolophine) 20 mg Q8HR PO 03/17/18 14:00 03/17/18 13:40 (Reglan) 10 mg Q6HR PO 03/17/18 12:00 03/17/18 11:32 (Ambien) 10 mg HS PRN PO 03/17/18 10:30 (Mycostatin Liq) 5 ml QID SWISH-SWAL 03/17/18 13:00 03/17/18 13:41 (KCl) 8 meq DAILY PO 03/18/18 09:00 (Zofran Odt) 4 mg Q4H PRN PO 03/17/18 13:15 03/17/18 13:41 (Xarelto) 20 mg DAILY PO 03/17/18 13:25 03/17/18 13:40 (Duoneb Neb) 1 ampule Q6HR WHILE AWAKE NEB NEB 03/17/18 14:00 03/17/18 14:35 (Lactinex) 1 tab Q12HR PO 03/17/18 21:00 Levofloxacin/ Dextrose 150 ml @ 100 mls/hr Q24H IV 03/17/18 14:00 03/17/18 14:28 (Duoneb Neb) 1 ampule Q2HR NEB PRN NEB 03/17/18 15:15 Family History Hypertension and diabetes in her mother, both parents alive and well. . Substance Use Tobacco: Former use, quit years ago. Alcohol: Denies. Prescription med abuse: Denies. Illicits: Currently using CBD oil for symptom control. . Psychosocial History She was born in [place] currently lives in [place]. 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 She is surrounded by a large and loving family. She is but wishes her mother and sister to be her decision maker. . Spiritual/Cultural Factors [employer] available. Living Will: Completed, but not made available Health Care Surrogate: Completed, but not made available Durable Power of Retail Manager In Training: Completed, but not made available Health Care Surrogate(s): She stated that she has a healthcare surrogate naming her mother and her sister Jesi as her healthcare surrogates. Family states they will bring her paperwork in for scanning. . Documented care wishes: No living will available at this time. . Today's verbally stated goals: She wishes her family make any end-of-life decisions for her. In the meantime, she wishes to be a FULL CODE. Family/friends goals: Consistent with patient's wishes. . Ethical and Legal Issues None noted. . Physical Exam Vital Signs Date Time Temp Pulse Resp B/P (MAP) Pulse Ox O2 Delivery O2 Flow Rate FiO2 03/17/18 16:00 97.8 101 21 106/62 (77) 99 03/17/18 14:37 99 Nasal Cannula 2.00 03/17/18 12:00 97.8 107 19 126/84 (98) 99 03/17/18 08:00 98.1 85 20 102/55 (71) 99 03/17/18 07:18 86 03/17/18 06:51 20 03/17/18 00:52 118 20 105/76 (86) 99 Nasal Cannula 2.00 5/16/18 00:48 98.9 66 20 97/64 (75) 100 Nasal Cannula 2.00 03/17/18 00:40 93 03/17/18 00:38 97.4 83 20 107/65 (79) 98 03/17/18 00:15 20 03/17/18 00:00 88 20 118/72 (87) 99 03/16/18 23:40 98 Nasal Cannula 1.00 03/16/18 23:10 100 20 117/76 (90) 99 03/16/18 22:15 112 20 102/68 (79) 99 Nasal Cannula 2.00 03/16/18 21:49 66 20 110/66 (81) 100 Nasal Cannula 2.00 03/16/18 21:49 100 Nasal Cannula 2.00 03/16/18 21:15 130 20 128/98 (108) 100 Nasal Cannula 2.00 03/16/18 21:00 130 24 100 Nasal Cannula 2.00 03/16/18 20:45 130 20 137/84 (101) 100 03/16/18 20:45 101.8 130 20 137/84 (101) 97 03/17/18 03/18/18 19:00 07:00 Intake Total 1270 ml Balance 1270 ml Intake Oral 120 ml IV Total 1150 ml Exam CONSTITUTIONAL/GENERAL: This is an adequately nourished patient, in no apparent distress. TUBES/LINES/DRAINS: Right subclavian port SKIN: No jaundice, rashes, or lesions. Ecchymoses on upper extremities. No wounds seen anteriorly. Skin temperature appropriate. Not diaphoretic. HEAD: Atraumatic. Normocephalic. EYES: Pupils equal and round and reactive. Extraocular motions intact. No scleral icterus. No injection or drainage. Fundi not examined. ENT: Hearing grossly normal. Nose without bleeding or purulent drainage. Throat without visible erythema, exudates, masses, or lesions. NECK: Trachea midline. Supple, nontender. No palpable thyroid enlargement or nodularity. CARDIOVASCULAR: Regular rate and rhythm without murmurs, gallops, or rubs. No JVD. Peripheral pulses symmetric. RESPIRATORY/CHEST: Symmetric, unlabored respirations. Clear to auscultation. Breath sounds equal bilaterally. No wheezes, rales, or rhonchi. GASTROINTESTINAL: Abdomen soft, non-tender, nondistended. No hepato-splenomegaly , or palpable masses. No guarding. Bowel sounds present. GENITOURINARY: Without palpable bladder distension. MUSCULOSKELETAL: Extremities without clubbing, cyanosis, or edema. Leg spasms noted during exam. LYMPHATICS: No palpable cervical or supraclavicular adenopathy. NEUROLOGICAL: Awake and alert. Motor and sensory grossly within normal limits. Follows commands. Cognitively sharp. Moves all extremities. PSYCHIATRIC: Positive anxiety. no apparent hallucinations or other psychotic thought process. . Diagnostic Tests Laboratory Laboratory Tests Test 03/16/18 21:00 03/16/18 23:05 03/16/18 23:55 03/17/18 07:00 White Blood Count 9.7 TH/MM3 (4.0-11.0) 6.7 TH/MM3 (4.0-11.0) Red Blood Count 4.98 MIL/MM3 (4.00-5.30) 3.93 MIL/MM3 (4.00-5.30) Hemoglobin 12.1 GM/DL (11.6-15.3) 10.1 GM/DL (11.6-15.3) Hematocrit 38.2 % (35.0-46.0) 29.9 % (35.0-46.0) Mean Corpuscular Volume 76.7 FL (80.0-100.0) 76.0 FL (80.0-100.0) Mean Corpuscular Hemoglobin 24.4 PG (27.0-34.0) 25.8 PG (27.0-34.0) Mean Corpuscular Hemoglobin Concent 31.8 % (32.0-36.0) 34.0 % (32.0-36.0) Red Cell Distribution Width 18.3 % (11.6-17.2) 18.5 % (11.6-17.2) Platelet Count 323 TH/MM3 (150-450) 272 TH/MM3 (150-450) Mean Platelet Volume 8.3 FL (7.0-11.0) 6.9 FL (7.0-11.0) Neutrophils (%) (Auto) 65.7 % (16.0-70.0) 58.4 % (16.0-70.0) Lymphocytes (%) (Auto) 21.3 % (9.0-44.0) 24.9 % (9.0-44.0) Monocytes (%) (Auto) 9.7 % (0.0-8.0) 14.8 % (0.0-8.0) Eosinophils (%) (Auto) 0.9 % (0.0-4.0) 1.7 % (0.0-4.0) Basophils (%) (Auto) 2.4 % (0.0-2.0) 0.2 % (0.0-2.0) Neutrophils # (Auto) 6.4 TH/MM3 (1.8-7.7) 3.9 TH/MM3 (1.8-7.7) Lymphocytes # (Auto) 2.1 TH/MM3 (1.0-4.8) 1.7 TH/MM3 (1.0-4.8) Monocytes # (Auto) 0.9 TH/MM3 (0-0.9) 1.0 TH/MM3 (0-0.9) Eosinophils # (Auto) 0.1 TH/MM3 (0-0.4) 0.1 TH/MM3 (0-0.4) Basophils # (Auto) 0.2 TH/MM3 (0-0.2) 0.0 TH/MM3 (0-0.2) CBC Comment AUTO DIFF DIFF FINAL Differential Comment AUTO DIFF CONFIRMED Ovalocytes 1+ (NORMAL) Prothrombin Time 12.8 SEC (9.8-11.6) Prothromb Time International Ratio 1.3 RATIO Activated Partial Thromboplast Time 34.7 SEC (24.3-30.1) Blood Urea Nitrogen 12 MG/DL (7-18) Creatinine 0.73 MG/DL (0.50-1.00) Random Glucose 108 MG/DL (74-106) Total Protein 7.2 GM/DL (6.4-8.2) Albumin 3.1 GM/DL (3.4-5.0) Calcium Level 8.7 MG/DL (8.5-10.1) Magnesium Level 1.5 MG/DL (1.5-2.5) Alkaline Phosphatase 78 U/L (45-117) Aspartate Amino Transf (AST/SGOT) 9 U/L (15-37) Alanine Aminotransferase (ALT/SGPT) 16 U/L (10-53) Total Bilirubin 0.5 MG/DL (0.2-1.0) Sodium Level 135 MEQ/L (136-145) Potassium Level 3.5 MEQ/L (3.5-5.1) Chloride Level 101 MEQ/L (98-107) Carbon Dioxide Level 24.0 MEQ/L (21.0-32.0) Anion Gap 10 MEQ/L (5-15) Estimat Glomerular Filtration Rate 103 ML/MIN (>89) Lactic Acid Level 2.2 mmol/L (0.4-2.0) 0.9 mmol/L (0.4-2.0) 0.7 mmol/L (0.4-2.0) Lipase 70 U/L (73-393) Urine Color YELLOW (YELLW/STRAW) Urine Turbidity CLEAR (CLEAR) Urine pH 6.0 (5.0-8.5) Urine Specific [place] LESS/EQUAL 1.005 Urine Protein NEG mg/dL (NEG-TRACE) Urine Glucose (UA) NEG mg/dL (NEG) Urine Ketones NEG mg/dL (NEG) Urine Occult Blood NEG (NEG) Urine Nitrite NEG (NEG) Urine Bilirubin NEG (NEG) Urine Urobilinogen 0.2 MG/DL (LESS THAN Urine Leukocyte Esterase NEG (NEG) Urine WBC 0-2 /hpf (0-5) Urine Squamous Epithelial Cells 0-5 /hpf (0-5) Microscopic Urinalysis Comment CULT NOT INDICATED Result Diagram: 03/17/18 0700 03/16/18 2100 Microbiology Microbiology Date/Time Source Procedure Growth Status 03/16/18 21:10 Blood Peripheral Aerobic Blood Culture - Preliminary NO GROWTH IN 1 DAY Resulted 03/16/18 21:10 Blood Peripheral Anaerobic Blood Culture - Preliminary NO GROWTH IN 1 DAY Resulted 03/16/18 21:00 Blood Peripheral Aerobic Blood Culture - Preliminary NO GROWTH IN 1 DAY Resulted 03/16/18 21:00 Blood Peripheral Anaerobic Blood Culture - Preliminary NO GROWTH IN 1 DAY Resulted Imaging Last Impressions Chest X-Ray 03/16/182107 Signed Impressions: Service Date/Time: Friday, March 16, 2018 21:42 - CONCLUSION: No significant change. Mild interstitial prominence Nithin Corral MD Tibia/Fibula X-Ray 03/16/18 0000 Signed Impressions: Service Date/Time: Friday, March 16, 2018 22:47 - CONCLUSION: Unremarkable examination of the left tibia. Nithin Corral MD Hip and Pelvis X-Ray 03/16/18 0000 Signed Impressions: Service Date/Time: Friday, March 16, 2018 22:47 - CONCLUSION: Symmetric sclerotic heterogeneity to the density of the femoral heads of undetermined significance. Followup with outpatient hip and pelvic MRI may be beneficial if clinically indicated. No definite acute bony findings. Nithin Corral MD Patient/Family Conference Present at Family Conference: Patient, mother and sister Jesi, were present during the family conference. Palliative care purpose and focus explained with differentiation from hospice services. Both services have been consulted to assist the patient in decision- making. At this time the patient's goals remain aggressive, in spite of being told that no further treatment is available for her cancer. She wishes to live as active life as possible as long as she can. . Family Conference Location: Bedside Issues Discussed: * Palliative care role, purpose, approach * Additional medical, psychosocial, and spiritual history * Patients general health, functional status, and cognitive changes in the months leading up to the current hospitalization * Patient/family understanding of the current medical problems * Patient/family understanding of prognosis * Patients goals of care as best understood from advance directives and/or conversations and/or values * Current medical treatment options and benefits/burdens of those options * Likely scenarios comparing ongoing aggressive care with a transition to comfort measures only * Questions answered to the best of my ability * Palliative care contact information provided Assessment and Plan Disease Oriented Problem List: (1) Fallopian tube carcinoma (2) Bone pain Symptom Scale: (1) Dyspnea and respiratory abnormalities (2) Spasm (3) Anxiety (4) Pain Pertinent Non-Medical Issues Psychosocial:She was born in [place] currently lives in [place]. 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 She is surrounded by a large and loving family. She is but wishes her mother and sister to be her decision maker. Spiritual: [employer] available Legal: Pending presentation of previously completed advanced directive paperwork. Ethical issues impacting care:None noted. . Important Contacts Mother: Patricia Hatch Sister Jesi Burrell . Prognosis Her prognosis is poor. She has exhausted all surgical, chemotherapy and radiation options through [facility] and they are at this time and play monitoring the progression of the disease. She has metastasis to lungs lymph and bone and a terminal diagnosis. While she remains positive she is experiencing more frequent and more intense symptoms with recurrent and increasing hospitalizations. She is at high risk for continued complications, hospitalizations and decline. . Code Status: Full Code Plan PLAN: Legal decision maker: At this time the patient is capacitated to make her own decisions. She states she has a healthcare surrogate naming her mother and sister as joint primary healthcare surrogates, however that has not yet been presented. Family states they will bring it in. She is legally , however still . I did advise her that in case of her incapacitation, her would be considered by [place] statutes the legal decision maker until the healthcare surrogate was available. Goals: Aggressive. CODE STATUS: FULL CODE SYMPTOMS: * Pain: Her home medications have been resumed to include Marinol, gabapentin 300 mg p.o. daily and 600 mg at at bedtime, hydromorphone 16 mg every 4 hours as needed, methadone 20 mg every 8 hours and she continues to have significant breakthrough pain. She continues to complain of bone pain making methadone the likely choice to increase. * Spasm: She is having recurrent muscle spasms that affect primarily her feet and lower legs. Would recommend the addition of an anti-spasmodic such as Valium which might also help attenuate her concomitant symptom of anxiety. * Dyspnea: She is chronically dyspneic and worsening with activity. Likely due to metastasis. She will need home doses of DuoNeb nebulizer to attempt to prevent rehospitalization. * Anxiety: She is visibly anxious and has difficulty even discussing CODE STATUS. She defers the entire decision to her family to make decisions. She would likely benefit from social work lecturer intervention as well as clergy support. Recommendation of Valium as an antispasmodic may also help her anxiety. SUMMARY This is a 47-year-old female with metastatic fallopian cancer to lungs, bone, lymph and:. She has exhausted all curative treatments through [facility] [place] but continues to wish aggressive care. She was recently hospitalized at [facility] and in a very short time rehospitalized at [place]. She is likely to continue to have re-hospitalizations and decline. She would be hospice appropriate if goals were consistent. Palliative care will continue to follow the patient during hospital course as condition evolves, to assist patient/decision-maker with understanding of their medical conditions, weighing benefits/burdens of treatment options, for clarification of goals of treatment. Additionally will assist with any symptoms of palliative concern. . Thank you for the opportunity to participate in the care of Ms. Wheeler. Attestation To help prompt me to consider important information that might be impacting today's encounter and assessment, information from prior notes written by myself or my colleagues may have been "brought forward" into today's note. My signature on this note, however, is an attestation that I personally performed the exam, history, and/or decision-making noted today, and, unless otherwise indicated, the interactions with patient, family, and staff as well as the review of records all occurred today. I also attest that the listed assessment and stated plan reflect my best clinical judgment today based on the combination of historical information, prior notes, and today's exam/ interactions. When time spent is documented, it refers only to time spent today by the signer, or if indicated, combined time spent today by collaborating physician/nurse practitioner. . Esperanza Pires March 17, 2018 4:41 pm
[2018-03-17] MEDS: LACTOBACILLUS ACIDOPHILUS TAB PO SCH (20:38)
[2018-03-17] MEDS ORDERED: GABAPENTIN 300 MG CAP PO SCH (21:00)
--- NOTE | 2018-03-17 22:25 | EKG ---
Date Performed: 03/16/2018 Time Performed: 21:41:07 PTAGE: 47 years EKG: SINUS TACHYCARDIA WITH SHORT CT INTERVAL NONSPECIFIC ST & T-WAVE ABNORMALITY ABNORMAL RHYTH M ECG PREVIOUS TRACING : 03/07/2018 07.41 Since the previous tracing, no significant change noted DOCTOR: Lars Hodge Interpretating Date/Time 03/17/2018 22:23:40
[2018-03-18] VITALS (7 sets, daily range): BP systolic 101–114; BP diastolic 62–65; PULSE 99–143; RESP 17–20; TEMP 97.6–99.8; O2SAT 94–98
[2018-03-18] MEDS: HYDROmorphone HCL 4 MG TAB PO PRN ×3 (00:59→10:59)
[2018-03-18] MEDS: METOCLOPRAMIDE HCL 10 MG TAB PO SCH (06:09)
[2018-03-18] MEDS: METHADONE HCL 10 MG TAB PO SCH (06:10)
[2018-03-18] MEDS: RESP: ALBUTEROL 2.5 MG/IPRATROPIUM 0.5 MG NEB (SCH) NEB (06:33)
[2018-03-18] MEDS ORDERED: POTASSIUM CHLORIDE 8 MEQ CONTROLLED RELEASE TAB PO SCH (09:00)
[2018-03-18] MEDS ORDERED: DIAZEPAM 2 MG TAB PO PRN (09:30)
[2018-03-18] MEDS: LACTOBACILLUS ACIDOPHILUS TAB PO SCH (09:30)
[2018-03-18] MEDS: DOCUSATE SODIUM 100 MG CAP PO SCH (09:30)
[2018-03-18] MEDS: RIVAROXABAN 20 MG TAB PO SCH (09:31)
[2018-03-18] MEDS: GABAPENTIN 300 MG CAP PO SCH (09:31)
[2018-03-18] MEDS: NYSTATIN SUSP 500,000 U/5 ML CUP SWISH-SWAL SCH (09:31)
[2018-03-18] MEDS: DRONABINOL 5 MG CAP PO SCH (09:45)
[2018-03-18] MEDS ORDERED: DIAZEPAM 5 MG TAB PO SCH (10:00)
[2018-03-18] MEDS ORDERED: DIAZ2 PO (10:55)
--- NOTE | 2018-03-18 10:56 | HHI.DCPOC ---
Discharge Care Plan Diagnosis: (1) Bone pain (2) Pain (3) Anxiety Goals to Promote Your Health * To prevent worsening of your condition and complications * To maintain your health at the optimal level Directions to Meet Your Goals Take your medications as prescribed Follow your dietary instruction Follow activity as directed Keep your appointments as scheduled Take your immunizations and boosters as scheduled If your symptoms worsen call your PCP, if no PCP go to Urgent Care Center or Emergency Room Smoking is Dangerous to Your Health. Avoid second hand smoke Call the 24-hour hour crisis hotline for domestic abuse at Shelby Hatch MD March 18, 2018 10:56
--- NOTE | 2018-03-18 10:58 | HHI.PR ---
Subjective Remarks This patient is a 47-year-old female unfortunately with metastatic cancer who for acute respiratory distress and for increased pain requiring IV narcotics. Overnight she is remarkably improved. Patient would like to go home to continue with outpatient follow-up and palliative care. She has made the decision to not pursue hospice at this time and to continue with palliative care through the [facility] in [place]. Objective Vitals Vital Signs Date Time Temp Pulse Resp B/P (MAP) Pulse Ox O2 Delivery O2 Flow Rate FiO2 03/18/18 08:00 143 03/18/18 07:30 97.6 99 20 109/63 (78) 97 03/18/18 07:10 18 03/18/18 07:10 18 03/18/18 06:34 98 Nasal Cannula 2.00 03/18/18 04:00 97.8 100 20 112/62 (79) 98 03/18/18 00:00 99.8 121 20 101/65 (77) 97 03/17/18 23:48 20 03/17/18 20:07 100 Nasal Cannula 2.00 03/17/18 20:00 99.2 92 20 102/55 (71) 100 03/17/18 20:00 100 03/17/18 16:00 97.8 101 21 106/62 (77) 99 03/17/18 15:05 87 03/17/18 14:37 99 Nasal Cannula 2.00 03/17/18 12:00 97.8 107 19 126/84 (98) 99 I/O 03/17/18 03/17/18 03/17/18 03/18/18 03/18/18 03/18/18 07:00 15:00 23:00 07:00 15:00 23:00 Intake Total 1120 ml 630 ml 1000 ml Output Total 400 ml Balance -400 ml 1120 ml 630 ml 1000 ml Intake Oral 120 ml 480 ml 1000 ml IV Total 1000 ml 150 ml Output Urine Total 400 ml # Voids 4 6 7 # Bowel Movements 0 2 1 Result Diagram: 03/17/18 0700 03/16/18 2100 Objective Remarks GENERAL: This is a we femle who is well-developed patient, in no apparent distress. CARDIOVASCULAR: Regular rate and rhythm without murmurs, gallops, or rubs. RESPIRATORY: Clear to auscultation. Breath sounds equal bilaterally. No wheezes , rales, or rhonchi. GASTROINTESTINAL: Abdomen soft, non-tender, nondistended. Normal active bowel sounds MUSCULOSKELETAL: Extremities without clubbing, cyanosis, or edema. NEURO: Alert & Oriented x4 to person, place, time, situation. 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 The Valium does seem to help the patient better. Discharge Planning Discharge home Diet regular Activity as regular Shelby Hatch MD March 18, 2018 10:58
[2018-03-18] MEDS ORDERED: SODIUM CHLORIDE 0.9% FLUSH 10 ML FLUSH IV FLUSH PRN (12:00)
[2018-03-18] MEDS ORDERED: GABAPENTIN 300 MG CAP PO SCH (13:00)
[2018-03-18] MEDS ORDERED: LEVA750T9 PO (14:45)
== END 2018-03-18 12:44 | disposition home or self-care (01) | DRG 872 ==
LOC: PHED 20:35 → PHEDA 23:25 → PH3B 03-17 00:38
PROVIDERS: ADMIT Hospitalist; ATTEND Hospitalist
DX: A41.9 Sepsis, unspecified organism (principal); C78.00 Secondary malignant neoplasm of unspecified lung; C78.5 Secondary malignant neoplasm of large intestine and rectum; C77.9 Secondary and unspecified malignant neoplasm of lymph node, unspecified; C57.00 Malignant neoplasm of unspecified fallopian tube; E86.0 Dehydration; B37.9 Candidiasis, unspecified; C79.51 Secondary malignant neoplasm of bone; R65.20 Severe sepsis without septic shock; F12.90 Cannabis use, unspecified, uncomplicated; F32.9 Major depressive disorder, single episode, unspecified; R06.03 Acute respiratory distress; R09.02 Hypoxemia; F41.9 Anxiety disorder, unspecified; Z92.21 Personal history of antineoplastic chemotherapy; Z87.01 Personal history of pneumonia (recurrent); Z79.01 Long term (current) use of anticoagulants; Z92.3 Personal history of irradiation; Z87.891 Personal history of nicotine dependence; Z86.711 Personal history of pulmonary embolism; Z51.5 Encounter for palliative care
CPT/HCPCS: 71045; 73502; 73590; 80053; 81001; 83605; 83690; 83735; 85025; 85610; 85730; 87040; 93005; 94640; 94664; 96361; 96374; 96375; J0692; J1170; J1642; J1956; J2405; J7030

== ENCOUNTER 2018-08-12 16:48 | Observation (INO) ==
[2018-08-12] MEDS ORDERED: MethylPREDNISolone Sod Succinate Inj 125 MG/2 ML Vial IV.PUSH ONE (17:15)
--- NOTE | 2018-08-12 17:20 | ED ---
HPI General Chief Complaint: Respiratory Symptoms Stated Complaint: cough/sob X4days Time Seen by Provider: 08/12/18 17:15 Source: patient Mode of arrival: ambulatory Limitations: no limitations History of Present Illness Patient comes in complaining of worsening shortness of breath, she was seen here and had an x-ray and diagnosed with possible pneumonia and given antibiotics as well as inhalers, the patient did not appeared to get better according to her and she comes in here now because she is feeling worse. Patient states that she is not oxygen dependent. However the patient has a past medical history significant for W[employer] type cancer with metastasis to the lungs and to the back, she had been taking care of at [facility] in [place].... Primary care doctor is Dr. Fransico Betancourt. Complaint: Reports shortness of breath and cough Onset (ago): week(s) Context: Reports recent illness Severity: severe Consistency/Duration: progressively worsening Relieving factors: nothing Exacerbating factors: nothing Known history of: Reports PE Treatment prior to arrival: Reports none Related Data Home oxygen amount: none Home Medications Medication Instructions Recorded Confirmed Marinol 5 mg PO BID 05/06/18 08/12/18 albuterol sulfate [Ventolin HFA] 2 puff INHALATION Q4H PRN 05/06/18 08/12/18 alprazolam [Xanax] 2 mg PO TID PRN 05/06/18 08/12/18 coenzyme Q10 [CoQ-10] 200 mg PO DAILY 05/06/18 08/12/18 docusate sodium 100 mg PO BID 05/06/18 08/12/18 fluticasone-salmeterol [Advair HFA] 2 puff INHALATION BID 05/06/18 08/12/18 gabapentin 300 mg PO TID 05/06/18 08/12/18 hydromorphone [Dilaudid] 16 mg PO Q6H PRN 05/06/18 08/12/18 methadone 10 mg PO Q6-8H PRN 05/06/18 08/12/18 metoclopramide HCl 10 mg PO Q6H 05/06/18 08/12/18 nystatin 4 ml PO QID 05/06/18 08/12/18 ondansetron [Zofran ODT] 4 mg PO Q6-8H PRN 05/06/18 08/12/18 potassium chloride 8 meq PO DAILY 05/06/18 08/12/18 rivaroxaban [Xarelto] 20 mg PO DAILY 05/06/18 08/12/18 sorbitol 30 ml PO DAILY PRN 05/06/18 08/12/18 zolpidem [Ambien] 10 mg PO DAILY PRN 05/06/18 08/12/18 benzonatate 100 mg PO TID PRN 08/12/18 08/12/18 Previous Rx's Medication Instructions Recorded cefuroxime axetil 500 mg PO Q12H 10 Days #20 tab 08/14/18 hydrocodone-homatropine [Hydromet] 5 ml PO Q4-6H PRN #480 ml 08/14/18 ipratropium-albuterol 1 amp NEB Q2HR NEB PRN #1 box 08/14/18 prednisone 5 mg PO BID #40 tab 08/14/18 Allergies Allergy/AdvReac Type Severity Reaction Status Date / Time adhesive Allergy Intermediate SKIN Verified 08/12/18 16:58 REACTION doxorubicin Allergy Intermediate Rash Verified 08/12/18 16:58 latex Allergy Mild Rash Verified 08/12/18 16:58 Review of Systems ROS: all other systems reviewed are negative PMFSH History History Provided By: Patient Medical History Medical History Anxiety (Acute) Chronic pain (Acute) Fallopian tube carcinoma (Acute) H/O: hysterectomy (Acute) H/O: pneumonia (Acute) Headache (Acute) Hypertension (Acute) Neuropathy (Acute) Pulmonary embolism (Acute) Surgical History Surgical History H/O rotator cuff surgery (Acute) H/O: hysterectomy (Acute) History of abdominal surgery (Acute) Hx of myomectomy (Acute) Family History Family History Mother History of diabetes mellitus Social History Social History Substance History: No History of Abuse Second Hand Smoke Exposure: No Smoking Status: Former smoker Tobacco Type: Cigarettes How Often Do You Have a Drink Containing Alcohol: Never Recent Travel in [facility] within the Last 8 Weeks: No Recent Out of Country Travel within the Last 8 Weeks: No Exam Narrative Exam Narrative: GENERAL: Cachectic female in distress SKIN: Warm and dry. HEAD: Atraumatic. Normocephalic. EYES: Pupils equal and round. No scleral icterus. No injection or drainage. ENT: No nasal bleeding or discharge. Mucous membranes pink and moist. NECK: Trachea midline. No JVD. CARDIOVASCULAR: Tachycardic rate, regular rhythm . no rubs or gallops RESPIRATORY: Tachypneic, rhonchi and wheezing bilaterally, noted chest port and right subclavian region. Decreased tidal volume bilaterally ...pulse ox 88%on ra with excellent pleth wave GASTROINTESTINAL: Abdomen soft, non-tender, nondistended. No rebound or guarding MUSCULOSKELETAL: Extremities without clubbing, cyanosis, or edema. No obvious deformities. NEUROLOGICAL: Awake and alert. No obvious cranial nerve deficits. Motor grossly within normal limits. Five out of 5 muscle strength in the arms and legs. Normal speech. PSYCHIATRIC: Appropriate mood and affect; insight and judgment normal. Course Initial Documented Vital Signs Temperature 99.3 F 08/12/18 16:55 Pulse Rate 120 H 08/12/18 16:55 Respiratory Rate 18 08/12/18 16:55 Blood Pressure 131/74 08/12/18 16:55 Pulse Oximetry 89 L 08/12/18 16:55 Last Documented Vital Signs Temperature 98.7 F 08/14/18 08:00 Pulse Rate 106 H 08/14/18 08:00 Respiratory Rate 17 08/14/18 08:00 Blood Pressure 92/72 L 08/14/18 08:00 Pulse Oximetry 95 08/14/18 08:00 Critical Care Time Critical Care Time: Yes Total Critical Care Time: 30 Attestation: Aggregate critical care time was 30 minutes. Time to perform other separately billable procedures was not included in the critical care time. My time did not include minutes spent treating any other patients simultaneously or on activities that did not directly contribute to the patient's treatment. The services I provided to this patient were to treat and/or prevent clinically significant deterioration I provided critical care services requiring my management, as noted below: Chart data review, documentation time, medication orders and management, vital sign assessments/reviewing monitor data, ordering and reviewing lab tests, ordering and interpreting/reviewing x-rays and diagnostic studies, care of the patient and discussion of the patient with the admitting physicians. Medical Decision Making MDM Narrative Medical decision making narrative: CBC does not show any evidence of leukocytosis, no anemia, mild neutrophilia of 74% First set of cardiac enzymes negative Lactic acid is only 1.6 Normal liver enzymes, normal kidney functions Normal electrolytes Chest x-ray read by radiologist as bilateral airspace disease with areas of consolidation, possibility of pulmonary edema versus possible superimposed pneumonia. Medical Screen Exam Complete: Yes Emergency Medical Condition: Yes Differential Diagnosis Differential Diagnosis: Pneumothorax versus pulmonary embolus versus pneumonia versus worsening respiratory status secondary to metastasis to lung Medical Records Medical records reviewed: Yes I reviewed the patient's medical records. I have attempted to look up previous CAT scans however the patient has had most of her evaluations and tests done [facility]. She provides the patient provides a history of a hysterectomy from fallopian tube carcinoma, history of recent pneumonia, not improving with antibiotics. And apparently on also a history of pulmonary embolus about 6 months ago and is being treated with xarelto Lab Data Lab results reviewed: Yes I reviewed the patient's lab results. Result diagrams: 08/13/18 04:35 08/13/18 04:35 Lab Results 08/12/18 08/12/18 08/12/18 Range/Units 17:30 17:30 17:30 CBC w Diff Slide review pending WBC 7.5 (4.0-11.0) th/mm3 RBC 5.13 (4.00-5.30) mil/mm3 Hgb 12.1 (11.6-15.3) gm/dL Hct 37.5 (35.0-46.0) % MCV 73.2 L (80.0-100.0) fL MCH 23.6 L (27.0-34.0) pg MCHC 32.2 (32.0-36.0) % RDW 17.4 H (11.6-17.2) % Plt Count 400 (150-450) th/mm3 MPV 8.0 (7.0-11.0) fL Neut % (Auto) 74.1 H (16.0-70.0) % Lymph % (Auto) 16.6 (9.0-44.0) % [place] % (Auto) 6.7 (0.0-8.0) % Eos % (Auto) 2.1 (0.0-4.0) % Baso % (Auto) 0.5 (0.0-2.0) % Neut # (Auto) 5.6 (1.8-7.7) th/mm3 Lymph # (Auto) 1.2 (1.0-4.8) th/mm3 [place] # (Auto) 0.5 (0.0-0.9) th/mm3 Eos # (Auto) 0.2 (0.0-0.4) th/mm3 Baso # (Auto) 0.0 (0.0-0.2) th/mm3 WBC Differential . Diff Scan Auto diff confirmed Differential Comment . Platelet Estimate Normal (Normal) Platelet Morphology Normal (Normal) Ovalocytes 1+ H (None) Sodium 138 (136-145) meq/L Potassium 3.5 (3.5-5.1) meq/L Chloride 101 (98-107) meq/L Carbon Dioxide 29.0 (21.0-32.0) meq/L Anion Gap 8 (5-15) meq/L BUN 6 L (7-18) mg/dL Creatinine 0.46 L (0.50-1.00) mg/dL Estimated GFR Greater than 89 (>89) mL/min Random Glucose 90 (74-106) mg/dL Lactic Acid (0.4-2.0) mmol/L Calcium 8.0 L (8.5-10.1) mg/dL Total Bilirubin 0.2 (0.2-1.0) mg/dL AST 13 L (15-37) U/L ALT 11 (10-53) U/L Alkaline Phosphatase 81 (45-117) U/L Total Creatine Kinase 117 (26-192) U/L CK-MB (CK-2) 1.8 (0.5-3.6) ng/mL Troponin I Less than 0.02 L (0.02-0.05) ng/mL B-Natriuretic Peptide 8 (0-100) pg/mL Total Protein 6.9 (6.4-8.2) g/dL Albumin 2.6 L (3.4-5.0) g/dL 08/12/18 08/13/18 08/13/18 Range/Units 17:30 04:35 04:35 CBC w Diff Slide review pending WBC 4.9 (4.0-11.0) th/mm3 RBC 4.84 (4.00-5.30) mil/mm3 Hgb 11.5 L (11.6-15.3) gm/dL Hct 35.8 (35.0-46.0) % MCV 74.0 L (80.0-100.0) fL MCH 23.8 L (27.0-34.0) pg MCHC 32.2 (32.0-36.0) % RDW 17.9 H (11.6-17.2) % Plt Count 355 (150-450) th/mm3 MPV 8.3 (7.0-11.0) fL Neut % (Auto) 87.7 H (16.0-70.0) % Lymph % (Auto) 11.3 (9.0-44.0) % [place] % (Auto) 0.6 (0.0-8.0) % Eos % (Auto) 0.1 (0.0-4.0) % Baso % (Auto) 0.3 (0.0-2.0) % Neut # (Auto) 4.3 (1.8-7.7) th/mm3 Lymph # (Auto) 0.6 L (1.0-4.8) th/mm3 [place] # (Auto) 0.0 (0.0-0.9) th/mm3 Eos # (Auto) 0.0 (0.0-0.4) th/mm3 Baso # (Auto) 0.0 (0.0-0.2) th/mm3 WBC Differential . Diff Scan Auto diff confirmed Differential Comment . Platelet Estimate (Normal) Platelet Morphology (Normal) Ovalocytes 1+ H (None) Sodium 139 (136-145) meq/L Potassium 3.4 L (3.5-5.1) meq/L Chloride 104 (98-107) meq/L Carbon Dioxide 25.1 (21.0-32.0) meq/L Anion Gap 10 (5-15) meq/L BUN 7 (7-18) mg/dL Creatinine 0.67 (0.50-1.00) mg/dL Estimated GFR Greater than 89 (>89) mL/min Random Glucose 175 H (74-106) mg/dL Lactic Acid 1.6 (0.4-2.0) mmol/L Calcium 8.4 L (8.5-10.1) mg/dL Total Bilirubin (0.2-1.0) mg/dL AST (15-37) U/L ALT (10-53) U/L Alkaline Phosphatase (45-117) U/L Total Creatine Kinase (26-192) U/L CK-MB (CK-2) (0.5-3.6) ng/mL Troponin I (0.02-0.05) ng/mL B-Natriuretic Peptide (0-100) pg/mL Total Protein (6.4-8.2) g/dL Albumin (3.4-5.0) g/dL Imaging Data Radiologist's impression: Chest CTA 08/12/18 17:16 CONCLUSION: 1. No pulmonary embolus seen. 2. Diffuse areas of consolidation seen throughout the lungs. These could be from diffuse processes such as infection. Neoplasm or hemorrhage could have a similar appearance. 3. Mediastinal and hilar adenopathy. 4. Right eighth rib fracture. Chest X-Ray 08/12/18 17:22 CONCLUSION: Bilateral airspace disease with areas of consolidation. The differential diagnosis includes pulmonary edema and possible superimposed pneumonia. Discharge Plan Discharge Disposition Patient Disposition: 30 Still Patient Discharge Condition Condition: Fair Discharge Order Discharge Orders: Discharge Order (Routine); Ordered 08/14/18 Ordered By: Ryder Lema Discharge Details Anticipated Discharge Date: 08/14/18 Discharge Comment: Discharge home after post void bladder scan Diagnosis: Hypoxemia, Respiratory distress Physicians Team ED Provider: Leroy Ogden Primary Care Provider: Fransico Betancourt Attending Provider: Nicolas Madrigal Other Providers: Meliton Rivera Status ED Status: Left Department Discharge Information Discharge Date/Time: 08/12/18 21:10
[2018-08-12] MEDS ORDERED: Levofloxacin 250 mg Premix Inj 250 MG/50 ML PIGGYBACK IV.SIG ONE (17:35)
--- NOTE | 2018-08-12 17:52 | XR ---
EXAM DATE: 08/12/2018 5:22 PM EDT AGE/SEX: 48 years / Female INDICATIONS: Shortness of breath, fever, weakness, and chest pain. CLINICAL DATA: This is the patient's initial encounter. Patient reports that signs and symptoms have been present for 1 day and indicates a pain score of 8/10. MEDICAL/SURGICAL HISTORY: Carcinoma, breast. Carcinoma, ovarian. . Infusaport. COMPARISON: [facility], CHEST 2V PA&LAT, 05/06/2018. . FINDINGS: A single AP erect portable view of the chest was obtained and demonstrates bilateral alveolar opaciti es with consolidation left perihilar region and right lung base. There is no effusion. The heart size remains within normal limits. The right-sided implantable port catheter remains in place. The bony t horax is intact. CONCLUSION: Bilateral airspace disease with areas of consolidation. The differential diagnosis includes pulmonary edema and possible superimposed pneumonia. Electronically signed by: Francisco Rizvi MD 08/12/2018 5:50 PM EDT
[2018-08-12 17:55] LABS: Baso % (Auto) 0.5 % (0.0-2.0); Eos # (Auto) 0.2 th/mm3 (0.0-0.4); Eos % (Auto) 2.1 % (0.0-4.0); Hematocrit 37.5 % (35.0-46.0); Hemoglobin 12.1 gm/dL (11.6-15.3); Lymph # (Auto) 1.2 th/mm3 (1.0-4.8); Lymph % (Auto) 16.6 % (9.0-44.0); Mean Corpuscular HGB Conc 32.2 % (32.0-36.0); Mean Corpuscular Hemoglobin 23.6 pg (27.0-34.0); Mean Corpuscular Volume 73.2 fL (80.0-100.0); Mono # (Auto) 0.5 th/mm3 (0.0-0.9); Mono % (Auto) 6.7 % (0.0-8.0); Neut # (Auto) 5.6 th/mm3 (1.8-7.7); Neut % (Auto) 74.1 % (16.0-70.0); Platelet Count 400 th/mm3 (150-450); Red Blood Count 5.13 mil/mm3 (4.00-5.30); Red Cell Distribution Width 17.4 % (11.6-17.2); White Blood Count 7.5 th/mm3 (4.0-11.0)
[2018-08-12 18:01] LABS: Chloride 101 meq/L (98-107); Potassium 3.5 meq/L (3.5-5.1); Sodium 138 meq/L (136-145)
[2018-08-12 18:05] LABS: Albumin 2.6 g/dL (3.4-5.0); Anion Gap 8 meq/L (5-15); Blood Urea Nitrogen 6 mg/dL (7-18); Glucose,Random 90 mg/dL (74-106)
[2018-08-12 18:08] LABS: Alanine Aminotransferase 11 U/L (10-53); Aspartate Aminotransferase 13 U/L (15-37); Glomerular Filtration Rate Greater Than 89 mL/min (>89)
[2018-08-12 18:09] LABS: Total Protein 6.9 g/dL (6.4-8.2)
[2018-08-12 18:10] LABS: Alkaline Phosphatase 81 U/L (45-117); Creatine Kinase 117 U/L (26-192)
[2018-08-12 18:23] LABS: Creatine Kinase MB 1.8 ng/mL (0.5-3.6)
[2018-08-12 18:37] LABS: Ovalocytes 1+; Platelet Estimate Normal (Normal); Platelet Morphology Normal (Normal)
--- NOTE | 2018-08-12 18:37 | CT ---
EXAM DATE: 08/12/2018 5:57 PM EDT AGE/SEX: 48 years / Female INDICATIONS: Cough, short of breath, chest pain x 8 months, worse over past 4 days. CLINICAL DATA: This is the patient's initial encounter. Patient reports that signs and symptoms have been present for 7 - 11 months and indicates a pain score of 2/10. MEDICAL/SURGICAL HISTORY: Hypertension. Metastatic disease. Pulmonary embolism. Fallopian tube can cer. Lung and bone metastases. Hysterectomy. Myomectomy. RADIATION DOSE: 13.11 CTDI (mGy) COMPARISON: [facility], CHEST 1V SINGLE AP, 08/12/2018. . TECHNIQUE: Volumetric scanning was performed using a multi-row detector CT scanner during bolus infu mami of 75 ml Omnipaque 350 (iohexol) nonionic water-soluble contrast as a single exam dose. The nahed a was post processed with a variety of visualization algorithms including full volume maximum intensi ty projection and sliding thin slab reformation. Using automated exposure control and adjustment of t he mA and/or kV according to patient size, radiation dose was kept as low as reasonably achievable to obtain optimal diagnostic quality images. DICOM format image data is available electronically for r eview and comparison. FINDINGS: Pulmonary Arteries: No filling defects are seen in the pulmonary arteries out to the subsegmental ve ssels. The left and right pulmonary arteries are normal in diameter. Lung: There are dense areas of alveolar consolidation involving much of the lower lobes and the left upper lung. More patchy areas of consolidation/mass are seen in the right upper lung and right middl e lobes. Effusion: None. Mediastinum: Adenopathy is seen in the superior mediastinum, right paratracheal, subcarinal, tracheo bronchial and hilar regions bilaterally. Other: The axilla is unremarkable. The right-sided [id number] in place. There is a fracture at th e posterior lateral right eighth rib. CONCLUSION: 1. No pulmonary embolus seen. 2. Diffuse areas of consolidation seen throughout the lungs. These could be from diffuse processes s uch as infection. Neoplasm or hemorrhage could have a similar appearance. 3. Mediastinal and hilar adenopathy. 4. Right eighth rib fracture. Electronically signed by: Nithin Davis MD 08/12/2018 6:36 PM EDT
[2018-08-12] MEDS ORDERED: Acetaminophen 325 MG Tablet PO PRN (18:58)
[2018-08-12] MEDS ORDERED: Sorbitol 70% Liq 30 ML UDC PO PRN (19:01)
[2018-08-12] MEDS ORDERED: Naloxone Inj 0.4 MG/ML Vial IV.PUSH PRN (19:02)
[2018-08-12] MEDS ORDERED: Sod Chloride 0.9% Inj 1,000 ML IV.SIG ONE (19:07)
[2018-08-12] MEDS ORDERED: HYDROmorphone PF Inj 2 MG/ML Vial IV.PUSH ONE (20:00)
[2018-08-12] MEDS ORDERED: Temazepam 15 MG Capsule PO PRN (21:00)
[2018-08-12] MEDS: Amoxicillin/Clavulanate 875/125 MG Tablet PO SCH (22:34)
[2018-08-12] MEDS: Budesonide-Formoterol 160/4.5 MCG 6 GM Inhaler INH SCH (22:34)
[2018-08-12] MEDS: Benzonatate 100 MG Capsule PO PRN (23:24)
[2018-08-13 04:52] LABS: Baso % (Auto) 0.3 % (0.0-2.0); Chloride 104 meq/L (98-107); Eos % (Auto) 0.1 % (0.0-4.0); Hematocrit 35.8 % (35.0-46.0); Hemoglobin 11.5 gm/dL (11.6-15.3); Lymph # (Auto) 0.6 th/mm3 (1.0-4.8); Lymph % (Auto) 11.3 % (9.0-44.0); Mean Corpuscular HGB Conc 32.2 % (32.0-36.0); Mean Corpuscular Hemoglobin 23.8 pg (27.0-34.0); Mean Platelet Volume 8.3 fL (7.0-11.0); Mono % (Auto) 0.6 % (0.0-8.0); Neut # (Auto) 4.3 th/mm3 (1.8-7.7); Neut % (Auto) 87.7 % (16.0-70.0); Platelet Count 355 th/mm3 (150-450); Potassium 3.4 meq/L (3.5-5.1); Red Blood Count 4.84 mil/mm3 (4.00-5.30); Red Cell Distribution Width 17.9 % (11.6-17.2); Sodium 139 meq/L (136-145); White Blood Count 4.9 th/mm3 (4.0-11.0)
[2018-08-13 04:55] LABS: Anion Gap 10 meq/L (5-15); Blood Urea Nitrogen 7 mg/dL (7-18); Calcium 8.4 mg/dL (8.5-10.1); Carbon Dioxide 25.1 meq/L (21.0-32.0); Glucose,Random 175 mg/dL (74-106)
[2018-08-13 04:59] LABS: Glomerular Filtration Rate Greater Than 89 mL/min (>89)
[2018-08-13 05:29] LABS: Ovalocytes 1+
[2018-08-13] MEDS: Amoxicillin/Clavulanate 875/125 MG Tablet PO SCH (08:18)
[2018-08-13] MEDS: Benzonatate 100 MG Capsule PO PRN ×2 (08:18→20:55)
[2018-08-13] MEDS: Rivaroxaban 20 MG Tablet PO SCH (08:18)
--- NOTE | 2018-08-13 08:44 | P.HP ---
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 Patient does have appropriate outpatient care with [facility] for her cancer, Dr. Sanchez for pulmonology, Dr. Betancourt primary medical doctor, patient does go to pain management for her pain control and does take rather significant amount of pain medicine with methadone 10 mg every 6 hours, Dilaudid 16 mg every 6 hours. Patient indicates that since November she has been undergoing recurrent treatments for possible pneumonia or upper respiratory infections with multiple different antibiotics. States that the one that is most commonly uses Augmentin. She was just in the hospital at [facility] in June where she was admitted for 2 days and discharged home with outpatient follow-up with her dietary director. Patient did go to his office and had what sounds like a pulmonary function study, outpatient x-rays in was have follow-up. Her appointment is on August 31. Patient indicates that she has not gotten any significant improvement with any of the treatments that she is received outpatient. She did go to [facility] about her condition and they notified her that there is nothing else that can be done for her cancer and progression. She was told that she has less than 6 months to live. 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 Patient came to emergency department because of her chronic cough, pain. Laboratory studies were performed which were unremarkable. Chest x-ray and CT scan were performed which did show significant findings of the lungs to include possible inflammatory process, infectious process and/or metastatic cancer. There is no documented significant hypoxia. Patient is just concerned about the cough that caused her to have more pain. She has been on multiple medications to include Phenergan with codeine for cough suppression, Tessalon for cough suppression without any significant benefit. Emergency room physician recommended that the patient be observed in the hospital for further evaluation and management. Upon seeing the patient today she looks rather comfortable in bed. She is at 98 % O2 with 2 L nasal cannula. She is very tearful about her clinical condition and prognosis. Again she is unwilling to have hospice consult. - Diagnosis (1) Cough (2) Metastatic cancer Review of Systems All other systems reviewed negative except as stated in HPI Respiratory: Reports cough PMFSH - History History Provided By: Patient, Family Member - Medical History Medical History: Medical History (Last Reviewed 08/13/18 @ 08:00 by CYNDI Sanchez) Anxiety Chronic pain Fallopian tube carcinoma H/O: pneumonia Headache Hypertension Neuropathy Pulmonary embolism - Surgical History Surgical History: Surgical History (Last Updated 08/13/18 @ 08:00 by CYNDI Sanchez) H/O rotator cuff surgery H/O: hysterectomy History of abdominal surgery Hx of myomectomy - Family History Family History: Family History (Last Updated 08/13/18 @ 08:00 by CYNDI Sanchez) Mother History of diabetes mellitus - Tobacco History Second Hand Smoke Exposure: No Tobacco Use In Past 30 Days: No Smoking Status: Former smoker Tobacco Type: Cigarettes - Alcohol History How Often Do You Have a Drink Containing Alcohol: Never - Substance Use History Substance History: No History of Abuse - Substance Use Type Marijuana Status: Early Remission Route Used: By Mouth Frequency: MEDICAL MARIJUANA VAPE "QUIT IN LAST DECEMBER 2017 DUE TO COUGH" - Travel History Recent Travel in the [place] Within the Last 8 Weeks: No Recent Travel Out of the Country Within the Last 8 Weeks: No - Immunization History Tetanus Immunization: Never Vaccinated Medications and Allergies Active Medications: Active Medications Acetaminophen (Tylenol) 650 mg PO Q4H PRN PRN Reason: Temp > 100.4 Al Hydroxide/Mg Hydroxide (Milk Of Nitza Arevalo) 30 ml PO Q12H PRN PRN Reason: Mild Constipation Albuterol (Ventolin Hfa Inh) 2 puff INH Q4H PRN PRN Reason: SHORTNESS OF BREATH Albuterol (Duoneb Neb (Prn)) 1 ampul NEB Q2HR NEB PRN PRN Reason: SHORTNESS OF BREATH Last Admin: 08/13/18 02:56 Dose: 1 ampul Alprazolam (Xanax) 2 mg PO TID PRN PRN Reason: ANXIETY Benzonatate (Tessalon Perles) 100 mg PO TID PRN PRN Reason: Cough Last Admin: 08/12/18 23:24 Dose: 100 mg Budesonide/Formoterol Fumarate (Symbicort 160/4.5 Mcg Inh) 2 puff INH BID ROSA ELENA Last Admin: 08/12/18 22:34 Dose: 2 puff Guaifenesin (Mucinex Er) 600 mg PO BID [facility] Guaifenesin/Codeine Phosphate (Robitussin Ac 200/20 Mg/10 Ml Liq) 10 ml PO Q6H PRN PRN Reason: COUGH Levofloxacin/Dextrose (Levaquin 750 Mg Premix Inj) 150 mls @ 100 mls/hr IV.SIG Q24H [facility] Naloxone HCl (Narcan Inj) 0.4 mg IV.PUSH UNSCH PRN PRN Reason: SEE LABEL COMMENTS Ondansetron HCl (Zofran Inj) 4 mg IV.PUSH Q6H PRN PRN Reason: NAUSEA OR VOMITING Last Admin: 08/13/18 04:38 Dose: 4 mg Oxycodone HCl (Roxicodone) 5 mg PO Q4H PRN PRN Reason: PAIN SCALE 3 TO 5 Last Admin: 08/12/18 19:26 Dose: 5 mg Rivaroxaban (Xarelto) 20 mg PO DAILY [facility] Sorbitol (Sorbitol 70% Liq) 30 ml PO DAILY PRN PRN Reason: Hypoglycemia Temazepam (Restoril) 15 mg PO HS PRN PRN Reason: INSOMNIA Last Admin: 08/12/18 23:24 Dose: 15 mg Allergies Allergy/AdvReac Type Severity Reaction Status Date / Time adhesive Allergy Intermediate SKIN Verified 08/12/18 16:58 REACTION doxorubicin Allergy Intermediate Rash Verified 08/12/18 16:58 latex Allergy Mild Rash Verified 08/12/18 16:58 Home Medications Medication Instructions Recorded Confirmed Type Marinol 5 mg PO BID 05/06/18 08/12/18 History albuterol sulfate [Ventolin HFA] 2 puff INHALATION Q4H PRN 05/06/18 08/12/18 History alprazolam [Xanax] 2 mg PO TID PRN 05/06/18 08/12/18 History coenzyme Q10 [CoQ-10] 200 mg PO DAILY 05/06/18 08/12/18 History docusate sodium 100 mg PO BID 05/06/18 08/12/18 History fluticasone-salmeterol [Advair HFA] 2 puff INHALATION BID 05/06/18 08/12/18 History gabapentin 300 mg PO TID 05/06/18 08/12/18 History hydromorphone [Dilaudid] 16 mg PO Q6H PRN 05/06/18 08/12/18 History methadone 10 mg PO Q6-8H PRN 05/06/18 08/12/18 History metoclopramide HCl 10 mg PO Q6H 05/06/18 08/12/18 History nystatin 4 ml PO QID 05/06/18 08/12/18 History ondansetron [Zofran ODT] 4 mg PO Q6-8H PRN 05/06/18 08/12/18 History potassium chloride 8 meq PO DAILY 05/06/18 08/12/18 History rivaroxaban [Xarelto] 20 mg PO DAILY 05/06/18 08/12/18 History sorbitol 30 ml PO DAILY PRN 05/06/18 08/12/18 History zolpidem [Ambien] 10 mg PO DAILY PRN 05/06/18 08/12/18 History amoxicillin-pot clavulanate 1 tab PO BID 08/12/18 08/12/18 History benzonatate 100 mg PO TID PRN 08/12/18 08/12/18 History Exam Vital signs: Vital Signs 08/12/18 16:55 08/12/18 17:40 08/12/18 17:57 Temperature 99.3 F Pulse Rate 120 H 117 H Respiratory Rate 18 26 H Blood Pressure 131/74 102/69 Pulse Oximetry 89 L 08/12/18 18:55 08/12/18 18:56 08/12/18 19:35 Temperature Pulse Rate 123 H 123 H 128 H Respiratory Rate 20 22 Blood Pressure 88/67 L 101/70 Pulse Oximetry 96 96 08/12/18 20:30 08/12/18 20:37 08/12/18 21:20 Temperature 98.1 F 98.4 F Pulse Rate 71 108 H 100 H Respiratory Rate 14 18 18 Blood Pressure 116/71 90/66 L 106/72 Pulse Oximetry 98 08/12/18 21:29 08/12/18 21:37 08/12/18 21:55 Temperature 98.7 F Pulse Rate 101 H 82 Respiratory Rate 22 22 16 Blood Pressure 125/75 Pulse Oximetry 98 98 08/12/18 23:54 08/12/18 23:56 08/13/18 02:56 Temperature 97.9 F Pulse Rate 62 80 Respiratory Rate 20 22 18 Blood Pressure 126/66 Pulse Oximetry 96 08/13/18 04:00 08/13/18 05:08 08/13/18 07:45 Temperature 98.3 F 97.5 F L Pulse Rate 78 83 Respiratory Rate 22 14 26 H Blood Pressure 110/69 127/78 Pulse Oximetry 98 99 Intake & Output 08/12/18 08/13/18 08/13/18 18:59 06:59 18:59 Intake Total 1720 / 1720 120 / 120 Output Total 350 / 350 Balance 1370 / 1370 120 / 120 Weight 61.5 kg 63.1 kg Intake: IV 1000 / 1000 Levaquin 250 mg Premix Inj 250 0 / 0 mg In 50 ml @ 50 mls/hr IV.SIG ONCE ONE Rx#:[id number] NS Inj 1,000 ML @ Wide Open IV. 1000 / 1000 SIG BOLUS ONE Rx#:[id number] Oral 720 / 720 120 / 120 Output: Urine 350 / 350 Other: # Bowel Movements 0 Weight On Admission 63.1 kg Narrative: GENERAL: Well-developed, well-nourished, in no acute distress. alert and orientated HEENT: Head is normocephalic without any lesions or masses noted. Facial features are symmetric. Eyes: Pupils equal round reactive to light. Extraocular muscles are intact. Conjunctivae were clear. Oropharyngeal: Pharynx without any erythema edema. Tongue is midline without deviation. Buccal mucosa is moist without any masses or lesions NECK: Supple without any masses. Trachea midline no deviation. No JVD, no bruits are appreciated CARDIAC: Regular rhythm, regular rate. S1/S2 are heard. No murmurs gallops or rubs. LUNGS: Diminished breath sounds noted bilaterally. No wheeze, rhonchi or rales. No use of accessory muscles on inspiration or expiration. ABDOMEN: Soft, nontender. Nondistended. Bowel sounds heard in all 4 quadrants. No organomegaly or masses. Negative rebound, negative guarding EXTREMITIES: No edema, pulses are equal bilaterally. No cyanosis or clubbing NEUROLOGY: Mood and affect appear appropriate. Cranial nerves II through XII grossly intact. Muscle strength 5/5 in upper and lower extremities bilaterally. Deep tendon reflexes are 2+ in upper and lower extremities bilaterally. Results - Labs CBC & Chem 7: 08/13/18 04:35 08/13/18 04:35 Labs: Laboratory Results - last 24 hr 08/12/18 08/12/18 08/12/18 17:30 17:30 17:30 CBC w Diff Slide review pending WBC 7.5 RBC 5.13 Hgb 12.1 Hct 37.5 MCV 73.2 L MCH 23.6 L MCHC 32.2 RDW 17.4 H Plt Count 400 MPV 8.0 Neut % (Auto) 74.1 H Lymph % (Auto) 16.6 Bond % (Auto) 6.7 Eos % (Auto) 2.1 Baso % (Auto) 0.5 Neut # (Auto) 5.6 Lymph # (Auto) 1.2 Bond # (Auto) 0.5 Eos # (Auto) 0.2 Baso # (Auto) 0.0 WBC Differential . Diff Scan Auto diff confirmed Differential Comment . Platelet Estimate Normal Platelet Morphology Normal Ovalocytes 1+ H Sodium 138 Potassium 3.5 Chloride 101 Carbon Dioxide 29.0 Anion Gap 8 BUN 6 L Creatinine 0.46 L Estimated GFR Greater than 89 Random Glucose 90 Lactic Acid Calcium 8.0 L Total Bilirubin 0.2 AST 13 L ALT 11 Alkaline Phosphatase 81 Total Creatine Kinase 117 CK-MB (CK-2) 1.8 Troponin I Less than 0.02 L B-Natriuretic Peptide 8 Total Protein 6.9 Albumin 2.6 L 08/12/18 08/13/18 08/13/18 17:30 04:35 04:35 CBC w Diff Slide review pending WBC 4.9 RBC 4.84 Hgb 11.5 L Hct 35.8 MCV 74.0 L MCH 23.8 L MCHC 32.2 RDW 17.9 H Plt Count 355 MPV 8.3 Neut % (Auto) 87.7 H Lymph % (Auto) 11.3 Bond % (Auto) 0.6 Eos % (Auto) 0.1 Baso % (Auto) 0.3 Neut # (Auto) 4.3 Lymph # (Auto) 0.6 L Bond # (Auto) 0.0 Eos # (Auto) 0.0 Baso # (Auto) 0.0 WBC Differential . Diff Scan Auto diff confirmed Differential Comment . Platelet Estimate Platelet Morphology Ovalocytes 1+ H Sodium 139 Potassium 3.4 L Chloride 104 Carbon Dioxide 25.1 Anion Gap 10 BUN 7 Creatinine 0.67 Estimated GFR Greater than 89 Random Glucose 175 H Lactic Acid 1.6 Calcium 8.4 L Total Bilirubin AST ALT Alkaline Phosphatase Total Creatine Kinase CK-MB (CK-2) Troponin I B-Natriuretic Peptide Total Protein Albumin - Imaging Impressions Chest CTA 10/11/18 17:16 CONCLUSION: 1. No pulmonary embolus seen. 2. Diffuse areas of consolidation seen throughout the lungs. These could be from diffuse processes such as infection. Neoplasm or hemorrhage could have a similar appearance. 3. Mediastinal and hilar adenopathy. 4. Right eighth rib fracture. Chest X-Ray 08/12/18 17:22 CONCLUSION: Bilateral airspace disease with areas of consolidation. The differential diagnosis includes pulmonary edema and possible superimposed pneumonia. Caprini VTE Risk Assessment Caprini VTE Risk Assessment: Moderate/High Risk (score >= 2) Caprini Risk Assessment Model: Point Value = 1 Point Value = 2 Point Value = 3 Point Value = 5 Age 41-60 Minor surgery BMI > 25 kg/m2 Swollen legs Varicose veins or History of unexplained or recurrent spontaneous Oral contraceptives or hormone replacement Sepsis (< 1 month) Serious lung disease, including pneumonia (< 1 month) Abnormal pulmonary function Acute myocardial infarction Congestive heart failure (< 1 month) History of inflammatory bowel disease Medical patient at bed rest Age 61-74 Arthroscopic surgery Major open surgery (> 45 min) Laparoscopic surgery (> 45 min) Malignancy Confined to bed (> 72 hours) Immobilizing plaster cast Central venous access Age >= 75 History of VTE Family history of VTE Factor V Leiden Prothrombin [id number] Lupus anticoagulant Anticardiolipin antibodies Elevated serum homocysteine Heparin-induced thrombocytopenia Other congenital or acquired thrombophilia Stroke (< 1 month) Elective arthroplasty Hip, pelvis, or leg fracture Acute spinal cord injury (< 1 month) Prophylaxis Regimen: Total Risk Factor Score Risk Level Prophylaxis Regimen 0-1 Low Early ambulation 2 Moderate Order ONE of the following: *Sequential Compression Device (SCD) *Heparin 5000 units SQ BID 3-4 Higher Order ONE of the following medications: *Heparin 5000 units SQ TID *Enoxaparin/Lovenox 40 mg SQ daily (WT < 150 kg, CrCl > 30 mL/min) *Enoxaparin/Lovenox 30 mg SQ daily (WT < 150 kg, CrCl > 10-29 mL/min) *Enoxaparin/Lovenox 30 mg SQ BID (WT < 150 kg, CrCl > 30 mL/min) AND/OR *Sequential Compression Device (SCD) 5 or more Highest Order ONE of the following medications: *Heparin 5000 units SQ TID (Preferred with Epidurals) *Enoxaparin/Lovenox 40 mg SQ daily (WT < 150 kg, CrCl > 30 mL/min) *Enoxaparin/Lovenox 30 mg SQ daily (WT < 150 kg, CrCl > 10-29 mL/min) *Enoxaparin/Lovenox 30 mg SQ BID (WT < 150 kg, CrCl > 30 mL/min) AND *Sequential Compression Device (SCD) Assessment and Plan - Assessment (1) Cough Code(s): R05 - Cough Status: Acute (2) Metastatic cancer Code(s): C79.9 - Secondary malignant neoplasm of unspecified site Status: Acute - Plan Chronic cough, abnormal CT scan -CT scan showing significant consolidative changes in bilateral lungs which could be infectious, hemorrhage and or metastatic in nature -Patient has been treated outpatient with multiple antibiotics for the last 8 months without any significant improvement. Most recent antibiotic was Augmentin -We will start Levaquin at this time insulin possibility that her lung issues is related to infectious process -We will also start Solu-Medrol 12 hours for possible inflammatory changes -We will continue Tessalon, start Robitussin-DM -Patient was instructed to follow-up with her dietary director upon discharge -Continue O2 supplementation maintain O2 sats greater than 88% -Obtain sputum culture, Legionella testing, pneumococcal testing Metastatic carcinoma with chronic pain -We will resume the patient's methadone 10 mg every 6 hours as needed for pain -Unfortunately patient is on Dilaudid 16 mg every 6 hours in outpatient setting , will continue Dilaudid 8 mg p.o. every 6 hours -We will give Dilaudid 1 mg IV every 6 hours as needed -We will continue gabapentin, Marinol -Patient indicates that there is no further treatment that [facility] can offer her for her metastatic cancer -Palliative care has been consulted for further recommendations and hopefully pain control -Patient does not want a hospice consult at this time History of pulmonary emboli -CTA does not indicate any PE at this time -Continue anticoagulation with Xarelto DVT prevention -Patient is on Xarelto
[2018-08-13] MEDS: guaiFENesin 600 MG ER Tablet PO SCH ×2 (08:59→20:54)
[2018-08-13] MEDS: Gabapentin 300 MG Capsule PO SCH ×3 (09:00→17:29)
[2018-08-13] MEDS ORDERED: guaiFENesin/Codeine Syrup 200 MG/20 MG 10 ML UDC PO PRN (09:00)
[2018-08-13] MEDS ORDERED: Methadone 10 MG Tablet PO PRN (09:00)
[2018-08-13] MEDS: MethylPREDNISolone Sod Succinate Inj 40 MG/ML Vial IV.PUSH SCH ×2 (09:04→20:54)
[2018-08-13] MEDS: Budesonide-Formoterol 160/4.5 MCG 6 GM Inhaler INH SCH (09:05)
--- NOTE | 2018-08-13 14:15 | P.CONPAL ---
Consult Service: Palliative Care Requesting Physician: Nicolas Madrigal Reason for Consult: a. To assist with evaluation and management of symptoms including: Cough, dyspnea, chest pain, incontinence stress b. To assist medical decision maker(s) with: better understanding of current medical conditions; weighing benefits/burdens of medical treatment options; making medical treatment decisions. Primary Care Provider: Fransico Betancourt MD History of Present Illness History of Present Illness: This is a 48-year-old female who presented to [facility] with a complaint of worsening dyspnea chest pain and cough. She had received a chest x -ray and was diagnosed with possible pneumonia given antibiotics and an inhaler but continued to worsen and returned. 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 She follows with [facility] for cancer, Dr. Sanchez for pulmonology, Dr. Betancourt for her primary care provider and goes to pain management for pain control through [facility]. She takes methadone 10 mg every 6 hours, Dilaudid 16 mg every 6 hours. Since November she has been undergoing recurrent treatment for possible pneumonia or upper respiratory infections with multiple antibiotics but commonly uses Augmentin. She was seen in [facility] in June where she remained admitted for 2 days for upper respiratory symptoms. She indicates that none of her outpatient treatments have provided any significant improvement. She consulted with her physicians at [facility] and was informed again that there is nothing else that can be done for the cancer or progression. They advised her that she has less than 6 months to live. 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 Clinical findings on admission * CTA with IV contrast shows no pulmonary embolus. Diffuse areas of consolidation infection versus neoplasm with mediastinal and hilar adenopathy, right eighth rib fracture. * Chest x-ray shows bilateral airspace disease with areas of consolidation, pulmonary edema versus pneumonia. * WBC 7.5, hemoglobin 12.1, hematocrit 37.5, platelet count 400, sodium 138, potassium 3.5, BUN 6, creatinine 0.46, calcium 8.0, normal transaminase, troponin less than 0.02, B natruretic peptide 8. * Blood sputum and urine cultures have been drawn thus far showing no findings. This is a well-nourished, well-developed -[place] female sitting up in bed with family at bedside in no acute distress. She provides her own history coherently and clearly. She reports difficulty sleeping due to discomfort and cough, frequently sleeping sitting up in a recliner. She is developing some urinary incontinence with cough, in spite of just having urinated, raising questions of possible urinary retention. She states that when she coughs, even right after having voided, she has a copious amount of urine expressed. 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 She complains of pain in her chest and rib cage with cough suspicious for costochondritis. She does have a known rib fracture in the posterior right eighth rib. She describes her rib pain as across her chest both sides of front and back, moderate to severe, intermittent, worsening with increased coughing spells, somewhat decreased by her chronic pain medications. She describes her cough has frequent, harsh, worsening with laying on her right side, frequently awaking her. She now requires oxygen via nasal cannula continuously. Her dyspnea is moderate, feels as though she cannot get air in, worsening with bronchoconstriction, improving with nebulizer treatment. She sees Dr. Sanchez for pulmonology and states that he frequently uses steroids for her lung inflammation and cough. This may be an option to treat cough, chest pain and dyspnea until she sees Dr. Sanchez at the end of August. 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 . Substance Use Tobacco: Former use, quit years ago. Alcohol: Denies. Prescription med abuse: Denies. Illicits: Currently using CBD oil for symptom control. . Function/Cognitive Trajectory: Since seen in May, the patient has suffered a significant decline. She is more dyspneic, weaker with greatly expanded symptoms, less mobile, mostly bedbound but can ambulate short distances in the home. Her aunt is now moving in with her to provide her assistance during the day when other family is at work. . Review of Systems Constitutional: Reports fatigue, Reports malaise Cardiovascular: Reports chest pain (With cough), Reports rapid, pounding, or irregular heartbeat, Reports shortness of breath Respiratory: Reports cough, Reports pain with cough, Reports shortness of breath Musculoskeletal: Reports back pain, Reports joint pain Psychiatric: Reports memory loss PMF - History History Provided By: Patient, Family Member - Medical History Medical History: Medical History (Last Reviewed 08/13/18 @ 08:00 by CYNDI Sanchez) Anxiety Chronic pain Fallopian tube carcinoma H/O: pneumonia Headache Hypertension Neuropathy Pulmonary embolism - Surgical History Surgical History: Surgical History (Last Updated 08/13/18 @ 08:00 by CYNDI Sanchez) H/O rotator cuff surgery H/O: hysterectomy History of abdominal surgery Hx of myomectomy - Family History Family History: Family History (Last Updated 08/13/18 @ 08:00 by CYNDI Sanchez) Mother History of diabetes mellitus - Tobacco History Second Hand Smoke Exposure: No Tobacco Use In Past 30 Days: No Smoking Status: Former smoker Tobacco Type: Cigarettes - Alcohol History How Often Do You Have a Drink Containing Alcohol: Never - Substance Use History Substance History: No History of Abuse - Substance Use Type Marijuana Status: Early Remission Route Used: By Mouth Frequency: MEDICAL MARIJUANA VAPE "QUIT IN LAST DECEMBER 2017 DUE TO COUGH" - Travel History Recent Travel in the [place] Within the Last 8 Weeks: No Recent Travel Out of the Country Within the Last 8 Weeks: No - Immunization History Tetanus Immunization: Never Vaccinated Medications and Allergies Active Medications: Active Medications Acetaminophen (Tylenol) 650 mg PO Q4H PRN PRN Reason: Temp > 100.4 Al Hydroxide/Mg Hydroxide (Milk Of [place] Liq) 30 ml PO Q12H PRN PRN Reason: Mild Constipation Albuterol (Ventolin Hfa Inh) 2 puff INH Q4H PRN PRN Reason: SHORTNESS OF BREATH Albuterol (Duoneb Neb (Prn)) 1 ampul NEB Q2HR NEB PRN PRN Reason: SHORTNESS OF BREATH Last Admin: 08/13/18 09:15 Dose: 1 ampul Alprazolam (Xanax) 2 mg PO TID PRN PRN Reason: ANXIETY Last Admin: 08/13/18 08:57 Dose: 2 mg Benzonatate (Tessalon Perles) 100 mg PO TID PRN PRN Reason: Cough Last Admin: 08/13/18 08:18 Dose: 100 mg Budesonide/Formoterol Fumarate (Symbicort 160/4.5 Mcg Inh) 2 puff INH BID [facility] Last Admin: 08/13/18 09:05 Dose: 2 puff Dronabinol (Marinol) 5 mg PO BID [facility] Last Admin: 08/13/18 12:15 Dose: 5 mg Gabapentin (Neurontin) 300 mg PO TID [facility] Last Admin: 08/13/18 12:16 Dose: 300 mg Guaifenesin (Mucinex Er) 600 mg PO BID [facility] Last Admin: 08/13/18 08:59 Dose: 600 mg Guaifenesin/Codeine Phosphate (Robitussin Ac 200/20 Mg/10 Ml Liq) 10 ml PO Q6H PRN PRN Reason: COUGH Hydromorphone HCl (Dilaudid) 8 mg PO Q6H [facility] Last Admin: 08/13/18 09:00 Dose: 8 mg Hydromorphone HCl (Dilaudid Pf Inj) 1 mg IV.PUSH Q6H PRN PRN Reason: BREAKTHROUGH PAIN Levofloxacin/Dextrose (Levaquin 750 Mg Premix Inj) 150 mls @ 100 mls/hr IV.SIG Q24H [facility] Methadone HCl (Dolophine) 10 mg PO Q6H PRN PRN Reason: PAIN SCALE 6 TO 10 Methylprednisolone Sodium Succinate (Solumedrol Inj) 40 mg IV.PUSH Q12HR [facility] Last Admin: 08/13/18 09:04 Dose: 40 mg Naloxone HCl (Narcan Inj) 0.4 mg IV.PUSH UNSCH PRN PRN Reason: SEE LABEL COMMENTS Ondansetron HCl (Zofran Inj) 4 mg IV.PUSH Q6H PRN PRN Reason: NAUSEA OR VOMITING Last Admin: 08/13/18 04:38 Dose: 4 mg Oxycodone HCl (Roxicodone) 5 mg PO Q4H PRN PRN Reason: PAIN SCALE 3 TO 5 Last Admin: 08/12/18 19:26 Dose: 5 mg Rivaroxaban (Xarelto) 20 mg PO DAILY [facility] Last Admin: 08/13/18 08:18 Dose: 20 mg Sorbitol (Sorbitol 70% Liq) 30 ml PO DAILY PRN PRN Reason: Hypoglycemia Temazepam (Restoril) 15 mg PO HS PRN PRN Reason: INSOMNIA Last Admin: 08/12/18 23:24 Dose: 15 mg Allergies Allergy/AdvReac Type Severity Reaction Status Date / Time adhesive Allergy Intermediate SKIN Verified 08/12/18 16:58 REACTION doxorubicin Allergy Intermediate Rash Verified 08/12/18 16:58 latex Allergy Mild Rash Verified 08/12/18 16:58 Home Medications Medication Instructions Recorded Confirmed Type Marinol 5 mg PO BID 05/06/18 08/12/18 History albuterol sulfate [Ventolin HFA] 2 puff INHALATION Q4H PRN 05/06/18 08/12/18 History alprazolam [Xanax] 2 mg PO TID PRN 05/06/18 08/12/18 History coenzyme Q10 [CoQ-10] 200 mg PO DAILY 05/06/18 08/12/18 History docusate sodium 100 mg PO BID 05/06/18 08/12/18 History fluticasone-salmeterol [Advair HFA] 2 puff INHALATION BID 05/06/18 08/12/18 History gabapentin 300 mg PO TID 05/06/18 08/12/18 History hydromorphone [Dilaudid] 16 mg PO Q6H PRN 05/06/18 08/12/18 History methadone 10 mg PO Q6-8H PRN 05/06/18 08/12/18 History metoclopramide HCl 10 mg PO Q6H 05/06/18 08/12/18 History nystatin 4 ml PO QID 05/06/18 08/12/18 History ondansetron [Zofran ODT] 4 mg PO Q6-8H PRN 05/06/18 08/12/18 History potassium chloride 8 meq PO DAILY 05/06/18 08/12/18 History rivaroxaban [Xarelto] 20 mg PO DAILY 05/06/18 08/12/18 History sorbitol 30 ml PO DAILY PRN 05/06/18 08/12/18 History zolpidem [Ambien] 10 mg PO DAILY PRN 05/06/18 08/12/18 History amoxicillin-pot clavulanate 1 tab PO BID 08/12/18 08/12/18 History benzonatate 100 mg PO TID PRN 08/12/18 08/12/18 History Advance Directives Living Will: Unknown Health Care Surrogate Name and Number: Reports Patricia Hatch and Jesi Burrell are joint primary Physical Exam Vital Signs: Vital Signs - 24 hr 08/12/18 16:55 08/12/18 17:40 08/12/18 17:57 Temperature 99.3 F Pulse Rate 120 H 117 H Respiratory Rate 18 26 H Blood Pressure 131/74 102/69 Pulse Oximetry 89 L 08/12/18 18:55 08/12/18 18:56 08/12/18 19:35 Temperature Pulse Rate 123 H 123 H 128 H Respiratory Rate 20 22 Blood Pressure 88/67 L 101/70 Pulse Oximetry 96 96 08/12/18 20:30 08/12/18 20:37 08/12/18 21:20 Temperature 98.1 F 98.4 F Pulse Rate 71 108 H 100 H Respiratory Rate 14 18 18 Blood Pressure 116/71 90/66 L 106/72 Pulse Oximetry 98 08/12/18 21:29 08/12/18 21:37 08/12/18 21:55 Temperature 98.7 F Pulse Rate 101 H 82 Respiratory Rate 22 22 16 Blood Pressure 125/75 Pulse Oximetry 98 98 08/12/18 23:54 08/12/18 23:56 08/13/18 02:56 Temperature 97.9 F Pulse Rate 62 80 Respiratory Rate 20 22 18 Blood Pressure 126/66 Pulse Oximetry 96 08/13/18 04:00 08/13/18 05:08 08/13/18 07:45 Temperature 98.3 F 97.5 F L Pulse Rate 78 83 Respiratory Rate 22 14 26 H Blood Pressure 110/69 127/78 Pulse Oximetry 98 99 08/13/18 08:00 08/13/18 09:17 08/13/18 11:21 Temperature 97.5 F L 98.7 F Pulse Rate 104 H 107 H 115 H Respiratory Rate 23 19 Blood Pressure 127/78 110/64 Pulse Oximetry 95 96 95 08/13/18 11:36 Temperature Pulse Rate Respiratory Rate 10 L Blood Pressure Pulse Oximetry I&O: Intake & Output 08/11/18 08/12/18 08/13/18 08/14/18 06:59 06:59 06:59 06:59 Intake Total 1720 / 1720 120 / 120 Output Total 350 / 350 Balance 1370 / 1370 120 / 120 Weight 139 lb 1.787 oz Physical Exam: CONSTITUTIONAL/GENERAL: This is an adequately nourished patient, in no apparent distress. TUBES/LINES/DRAINS: Right port SKIN: No jaundice, rashes, or lesions. Ecchymoses on upper extremities. No wounds seen anteriorly. Skin temperature appropriate. Not diaphoretic. HEAD: Atraumatic. Normocephalic. EYES: Pupils equal and round and reactive. Extraocular motions intact. No scleral icterus. No injection or drainage. Fundi not examined. ENT: Hearing grossly normal. Nose without bleeding or purulent drainage. Throat without visible erythema, exudates, masses, or lesions. NECK: Trachea midline. Supple, nontender. No palpable thyroid enlargement or nodularity. CARDIOVASCULAR: Regular rate and tachycardic rhythm without murmurs, gallops, or rubs. No JVD. Peripheral pulses symmetric. RESPIRATORY/CHEST: Lungs diminished, clear, no accessory muscle use, faint wheezing left posterior. GASTROINTESTINAL: Abdomen soft, non-tender, nondistended. No hepato-splenomegaly , or palpable masses. No guarding. Bowel sounds present. GENITOURINARY: Without palpable bladder distension. MUSCULOSKELETAL: Extremities without clubbing, cyanosis, or edema. No joint tenderness or effusion noted. No calf tenderness. No mottling or clubbing. LYMPHATICS: No palpable cervical or supraclavicular adenopathy. NEUROLOGICAL: Awake and alert. Motor and sensory grossly within normal limits. Follows commands. Moves all extremities. PSYCHIATRIC: Flat affect, mild anxiety. . Diagnostic Tests Laboratory: Laboratory Results - last 72 hr 08/12/18 08/12/18 08/12/18 17:30 17:30 17:30 CBC w Diff Slide review pending WBC 7.5 RBC 5.13 Hgb 12.1 Hct 37.5 MCV 73.2 L MCH 23.6 L MCHC 32.2 RDW 17.4 H Plt Count 400 MPV 8.0 Neut % (Auto) 74.1 H Lymph % (Auto) 16.6 [place] % (Auto) 6.7 Eos % (Auto) 2.1 Baso % (Auto) 0.5 Neut # (Auto) 5.6 Lymph # (Auto) 1.2 [place] # (Auto) 0.5 Eos # (Auto) 0.2 Baso # (Auto) 0.0 WBC Differential . Diff Scan Auto diff confirmed Differential Comment . Platelet Estimate Normal Platelet Morphology Normal Ovalocytes 1+ H Sodium 138 Potassium 3.5 Chloride 101 Carbon Dioxide 29.0 Anion Gap 8 BUN 6 L Creatinine 0.46 L Estimated GFR Greater than 89 Random Glucose 90 Lactic Acid Calcium 8.0 L Total Bilirubin 0.2 AST 13 L ALT 11 Alkaline Phosphatase 81 Total Creatine Kinase 117 CK-MB (CK-2) 1.8 Troponin I Less than 0.02 L B-Natriuretic Peptide 8 Total Protein 6.9 Albumin 2.6 L 08/12/18 08/13/18 08/13/18 17:30 04:35 04:35 CBC w Diff Slide review pending WBC 4.9 RBC 4.84 Hgb 11.5 L Hct 35.8 MCV 74.0 L MCH 23.8 L MCHC 32.2 RDW 17.9 H Plt Count 355 MPV 8.3 Neut % (Auto) 87.7 H Lymph % (Auto) 11.3 [place] % (Auto) 0.6 Eos % (Auto) 0.1 Baso % (Auto) 0.3 Neut # (Auto) 4.3 Lymph # (Auto) 0.6 L [place] # (Auto) 0.0 Eos # (Auto) 0.0 Baso # (Auto) 0.0 WBC Differential . Diff Scan Auto diff confirmed Differential Comment . Platelet Estimate Platelet Morphology Ovalocytes 1+ H Sodium 139 Potassium 3.4 L Chloride 104 Carbon Dioxide 25.1 Anion Gap 10 BUN 7 Creatinine 0.67 Estimated GFR Greater than 89 Random Glucose 175 H Lactic Acid 1.6 Calcium 8.4 L Total Bilirubin AST ALT Alkaline Phosphatase Total Creatine Kinase CK-MB (CK-2) Troponin I B-Natriuretic Peptide Total Protein Albumin Result Diagrams: 08/13/18 04:35 08/13/18 04:35 Microbiology: Microbiology 08/12/18 17:30 Aerobic Blood Culture - Preliminary Blood - Peripheral No growth in 1 day Anaerobic Blood Culture - Preliminary No growth in 1 day 08/12/18 17:35 Aerobic Blood Culture - Preliminary Blood - Peripheral No growth in 1 day Anaerobic Blood Culture - Preliminary No growth in 1 day Imaging: Chest CTA 08/12/18 17:16 CONCLUSION: 1. No pulmonary embolus seen. 2. Diffuse areas of consolidation seen throughout the lungs. These could be from diffuse processes such as infection. Neoplasm or hemorrhage could have a similar appearance. 3. Mediastinal and hilar adenopathy. 4. Right eighth rib fracture. Chest X-Ray 08/12/18 17:22 CONCLUSION: Bilateral airspace disease with areas of consolidation. The differential diagnosis includes pulmonary edema and possible superimposed pneumonia. Patient/Family Conference Present at Family Conference: Spoke with patient and ex- who is at bedside. Reviewed palliative care purpose and focus, the below listed items, past medical, social, psychosocial, surgical history and presenting symptoms. Explored possible interventions for her symptoms to evaluate what had and had not worked in the past. Patient has clearly stated to other medical providers and to me at her prior assessment that she was not interested in using hospice services and was content with the physician services currently provided to her. She does wish to continue to be a full code. . Family Conference Location: Bedside Issues Discussed: * Palliative care role, purpose, approach * Additional medical, psychosocial, and spiritual history * Patients general health, functional status, and cognitive changes in the months leading up to the current hospitalization * Patient/family understanding of the current medical problems * Patient/family understanding of prognosis * Patients goals of care as best understood from advance directives and/or conversations and/or values * Current medical treatment options and benefits/burdens of those options * Likely scenarios comparing ongoing aggressive care with a transition to comfort measures only * Questions answered to the best of my ability * Palliative care contact information provided Assessment and Plan Pertinent Non-Medical Issues: Psychosocial:She was born in [place] currently lives in [place]. 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 She is surrounded by a large and loving family. She is but wishes her mother and sister to be her decision maker. Spiritual: Shoulder Boner available. Legal: Patient states she has a healthcare surrogate form at home and it has been requested to be brought in for copies. Ethical issues impacting care: None noted. . Important Contacts: Mother: Patricia Hatch Sister Jesi Burrell . Prognosis: Her prognosis is poor. She has exhausted all surgical, chemotherapy and radiation options through [facility] and they are at this time and play monitoring the progression of the disease. She has metastasis to lungs lymph and bone and a terminal diagnosis. While she remains positive she is experiencing more frequent and more intense symptoms with recurrent and increasing hospitalizations. She is at high risk for continued complications, hospitalizations and decline. Code Status: Full Code Plan: PLAN: Legal decision maker: At this time the patient is capacitated for her decision making. She states that her mother and sister are her joint healthcare surrogate's and that the form is available at home. Requested copy. Goals: Remain aggressive. CODE STATUS: FULL CODE SYMPTOMS: * Cough: She continues to cough in spite of guaifenesin/codeine phosphate administration. While the below recommended steroid dosing may assist with this , she may also need to transition to Hycodan syrup for better cough management. I have recommended to her that she discuss this with Dr. Betancourt and her pain management doctor, Dr. Capone at [facility] to determine if any adjustment would be needed in her baseline pain medications if they thought this was a viable option to reduce her cough. * Dyspnea: Multifactorial to include lung metastasis, inflammation, disease burden. She states that the DuoNeb nebulizer is very helpful to her and works better for her than her home steroid inhaler. Would recommend continuing DuoNeb upon discharge. * Chest pain: Likely secondary to costochondritis/fractured ribs/bony metastasis. Due to her cough, dyspnea and chest pain, which are likely all from inflammation, would recommend initiating prednisone to continue until she sees Dr. Sanchez at the end of August, then per his direction. * Stress incontinence: She states that in spite of having just voided, she develops a rather large incontinence with cough, suspicious for stress incontinence. Would recommend a post void bladder scan to evaluate any urinary retention. SUMMARY This is a 48-year-old -[place] female with a history of metastatic fallopian tube cancer who has exhausted all surgical, chemotherapy and radiation options through [facility]. [facility] has told her that she has 6 months remaining to live. She does evidence a significant decline in quality of life and function since my evaluation of her in May 2018. She has metastasis to lungs, lymph and bone and although she is fully versed in hospice services, she is adamant in refusing any hospice services at this time. She is at high risk for continued complications, readmissions and decline. Palliative care will continue to follow the patient during hospital course as condition evolves, to assist patient/decision-maker with understanding of their medical conditions, weighing benefits/burdens of treatment options, for clarification of goals of treatment. Additionally will assist with any symptoms of palliative concern. . Appreciation Thank you for the opportunity to participate in the care of Anjana Wheeler. Attestation Attestation: To help prompt me to consider important information that might be impacting today's encounter and assessment, information from prior notes written by myself or my colleagues may have been "brought forward" into today's note. My signature on this note, however, is an attestation that I personally performed the exam, history, and/or decision-making noted today, and, unless otherwise indicated, the interactions with patient, family, and staff as well as the review of records all occurred today. I also attest that the listed assessment and stated plan reflect my best clinical judgment today based on the combination of historical information, prior notes, and today's exam/ interactions. When time spent is documented, it refers only to time spent today by the signer, or if indicated, combined time spent today by collaborating physician/nurse practitioner. .
[2018-08-14] MEDS: HYDROmorphone PF Inj 2 MG/ML Vial IV.PUSH PRN ×2 (01:29→09:33)
[2018-08-14] MEDS: Benzonatate 100 MG Capsule PO PRN ×2 (01:29→14:06)
[2018-08-14] MEDS: Budesonide-Formoterol 160/4.5 MCG 6 GM Inhaler INH SCH ×2 (05:50→08:45)
--- NOTE | 2018-08-14 08:38 | P.PN ---
Subjective Interval history: 48-year-old female with rather unfortunate situation with severely metastatic cancer. Patient does look much improved today. Cough appears to have improved. Patient still having stress incontinence. Discussed with the patient extensively on what palliative care is recommending. Patient does understand. She is requesting nebulizers so she can go home. Patient is clinically improved we will plan discharge accordingly. Vital signs are stable. Patient remains afebrile. Physical Exam Vital signs: Vital Signs 08/13/18 09:17 08/13/18 11:21 08/13/18 11:36 Temperature 98.7 F Pulse Rate 107 H 115 H Respiratory Rate 19 10 L Blood Pressure 110/64 Pulse Oximetry 96 95 08/13/18 15:14 08/13/18 16:00 08/13/18 16:40 Temperature 97.1 F L Pulse Rate 102 H 122 H 120 H Respiratory Rate 20 22 20 Blood Pressure 104/61 112/68 Pulse Oximetry 96 95 95 08/13/18 17:00 08/13/18 17:30 08/13/18 19:59 Temperature Pulse Rate 122 H 116 H Respiratory Rate 25 H 22 18 Blood Pressure 123/75 Pulse Oximetry 95 93 L 08/13/18 20:00 08/14/18 00:00 08/14/18 01:15 Temperature 96.2 F L 96 F L Pulse Rate 113 H 103 H 97 H Respiratory Rate 18 18 20 Blood Pressure 108/64 110/56 L Pulse Oximetry 93 L 94 L 08/14/18 06:05 Temperature Pulse Rate 100 H Respiratory Rate 18 Blood Pressure Pulse Oximetry Intake & Output 08/13/18 08/14/18 08/14/18 18:59 06:59 18:59 Intake Total 1080 / 1080 630 / 630 Output Total 600 / 600 600 / 600 Balance 480 / 480 30 / 30 Weight 63.2 kg Intake: IV 150 / 150 Levaquin 750 mg Premix Inj 150 150 / 150 ML @ 100 mls/hr IV.SIG Q24H ROSA ELENA Rx#:[id number] Oral 1080 / 1080 480 / 480 Output: Urine 600 / 600 600 / 600 Narrative: GENERAL: Well-developed, well-nourished, in no acute distress. alert and orientated HEENT: Head is normocephalic without any lesions or masses noted. Facial features are symmetric. Eyes: Extraocular muscles are intact. Conjunctivae were clear. NECK: Supple without any masses. Trachea midline no deviation. No JVD, CARDIAC: Regular rhythm, regular rate. S1/S2 are heard. No murmurs gallops or rubs. Mediport noted in the right anterior chest LUNGS: Clear to auscultation bilaterally. No wheeze, rhonchi or rales. No use of accessory muscles on inspiration or expiration. ABDOMEN: Soft, nontender. Nondistended. Bowel sounds heard in all 4 quadrants. No organomegaly or masses. Negative rebound, negative guarding EXTREMITIES: No edema, pulses are equal bilaterally. No cyanosis or clubbing NEUROLOGY: Mood and affect appear appropriate. Cranial nerves II through XII grossly intact. Moving all extremities, speech is clear - Urinary Catheter Management Female External Cath placed during this visit: no Reason for continuing: Not indwelling catheter Results - Labs CBC & Chem 7: 08/13/18 04:35 08/13/18 04:35 Microbiology 08/13/18 09:45 Sputum - Expectorated Sputum Gram Stain - Final 08/13/18 11:41 Urine - Random Urine Streptococcus pneumoniae Antigen (M - Final Presumptive negative for streptococcus pneumoniae antigen, suggesting no current or recent infection. Infection due to Streptococcus pneumoniae cannot be ruled out since the antigen present in the sample may be below the detection limit of the test. 08/13/18 11:41 Urine - Random Urine Legionella Antigen - Final Presumptive negative for Legionella pneumophila serogroup 1 antigen in urine, suggesting no recent or recurrent infection. Infection due to Legionella cannot be ruled out since other serogroups and species may cause disease, antigen may not be present in urine in early infection, and the level of antigen present in the urine may be below the detection limit of the test. 08/12/18 17:30 Blood - Peripheral Aerobic Blood Culture - Preliminary No growth in 1 day 08/12/18 17:30 Blood - Peripheral Anaerobic Blood Culture - Preliminary No growth in 1 day 08/12/18 17:35 Blood - Peripheral Aerobic Blood Culture - Preliminary No growth in 1 day 08/12/18 17:35 Blood - Peripheral Anaerobic Blood Culture - Preliminary No growth in 1 day Assessment and Plan - Assessment (1) Cough Code(s): R05 - Cough Status: Acute (2) Metastatic cancer Code(s): C79.9 - Secondary malignant neoplasm of unspecified site Status: Acute - Plan Chronic cough, abnormal CT scan -CT scan showing significant consolidative changes in bilateral lungs which could be infectious, hemorrhage and or metastatic in nature -Patient has been treated outpatient with multiple antibiotics for the last 8 months without any significant improvement. 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 every 6 hours -We will give Dilaudid 1 mg IV every 6 hours as needed -We will continue gabapentin, Marinol -Patient indicates that there is no further treatment that [facility] can offer her for her metastatic cancer -Palliative care has been consulted and made recommendations for discharge -Patient does not want a hospice consult at this time History of pulmonary emboli -CTA does not indicate any PE at this time -Continue anticoagulation with Xarelto Urinary incontinence -Palliative care recommending post void bladder scan -Patient will need to follow-up with her prior medical doctor for further evaluation if needed DVT prevention -Patient is on Xarelto Discharge Planning: Discharge home in stable condition Activity: Ad mirella. Diet: Regular diet Medication per medication reconciliation Follow-up with primary medical doctor in 1 week, continue follow-up with weave room supervisor
[2018-08-14] MEDS: Gabapentin 300 MG Capsule PO SCH ×2 (08:44→14:06)
[2018-08-14] MEDS: Rivaroxaban 20 MG Tablet PO SCH (08:44)
[2018-08-14] MEDS: guaiFENesin 600 MG ER Tablet PO SCH (08:44)
[2018-08-14] MEDS: MethylPREDNISolone Sod Succinate Inj 40 MG/ML Vial IV.PUSH SCH (08:45)
[2018-08-14 09:05] VITALS: BP 92/72; PULSE 106; RESP 17; TEMP 98.7; O2SAT 95
[2018-08-14] MEDS ORDERED: Heparin Central Flush 100 UNIT/ML 5 ML Vial IV.FLUSH PRN ×2 (14:29)
== END 2018-08-14 17:10 | disposition home or self-care (01) ==
LOC: PHED 16:48 → PHEDA 16:48 → PHICU 21:10 → PH3 08-13 17:22
PROVIDERS: ADMIT Hospitalist; ATTEND Hospitalist
DX: N39.3 Stress incontinence (female) (male); Z87.01 Personal history of pneumonia (recurrent); R09.02 Hypoxemia; Z79.51 Long term (current) use of inhaled steroids; Z79.01 Long term (current) use of anticoagulants; C57.00 Malignant neoplasm of unspecified fallopian tube; Z86.711 Personal history of pulmonary embolism; Z91.040 Latex allergy status; C79.51 Secondary malignant neoplasm of bone; F41.9 Anxiety disorder, unspecified; G89.3 Neoplasm related pain (acute) (chronic); R64 Cachexia; F17.210 Nicotine dependence, cigarettes, uncomplicated; I10 Essential (primary) hypertension; Z83.3 Family history of diabetes mellitus; Z90.710 Acquired absence of both cervix and uterus; C78.00 Secondary malignant neoplasm of unspecified lung